=== PATIENT | male | born 1955 | race Caucasian/White ===

== ENCOUNTER 2020-05-19 07:25 | Outpatient (REF) | payer OTHER, MEDICARE, SELFPAY ==
[2020-05-19 07:52] LABS: MANUAL DIFF FLAG NO
[2020-05-19 07:56] LABS: Basophils Percent Auto 0.6 % (0-2); Eosinophils Absolute Auto 0.5 X10*3/uL (0.0-0.4); Hematocrit 44.8 % (42-52); Hemoglobin 14.3 g/dl (14.0-18.0); Imm Gran Abs Auto 0.01 X10*3/uL (0.00-0.03); Imm Gran Pct Auto 0.2 % (0.0-0.4); Lymphocytes Absolute Auto 1.9 X10*3/uL (1.2-4.9); Lymphocytes Percent Auto 29.7 % (20-40); Mean Corpuscular HGB Conc 31.9 g/dl (31.0-36.0); Mean Corpuscular Hemoglobin 28.4 pg (27.0-33.0); Mean Corpuscular Volume 88.9 fL (80-98); Mean Platelet Volume 9.6 fL (9.4-12.4); Monocytes Absolute Auto 0.7 X10*3/uL (0.1-1.2); Neutrophils Absolute Auto 3.3 X10*3/uL (2.0-8.3); Neutrophils Percent Auto 50.5 % (45-73); Platelet Count 236 X10*3/uL (160-400); Red Blood Count 5.04 X10*6/uL (4.60-5.80); Red Cell Distribution Width 14.1 % (11.0-16.0); White Blood Count 6.5 X10*3/uL (4.8-10.8)
[2020-05-19 08:23] LABS: Estimated Average Glucose 123 mg/dL; Hemoglobin A1c % 5.9 %
[2020-05-19 08:24] LABS: Alanine Aminotransferase 33 U/L (0-40); Albumin Level 4.3 g/dL (3.5-5.0); Alkaline Phosphatase 75 U/L (39-117); Anion Gap 11 (12-20); Aspartate Amino Transferase 22 U/L (5-37); Blood Urea Nitrogen 16 mg/dL (9-16); Calcium 9.6 mg/dL (8.4-10.2); Carbon Dioxide 28 mmol/L (22-29); Chloride 106 mmol/L (96-108); Cholesterol 188 mg/dL; Estimated Glomerular Filt Rate > 60; Glucose Fasting 119 mg/dL (60-99); HDL Cholesterol 49 mg/dL; LDL Cholesterol Calculated 115 mg/dl; Potassium 4.2 mmol/l (3.3-5.1); Sodium 141 mmol/L (135-145); Total Protein 7.4 g/dL (6.5-8.0); Triglycerides 123 mg/dL
[2020-05-19 08:44] LABS: Glucose Urine UA NEG (NEG); Leukocyte Esterase Urine NEG (NEG); Nitrite Urine NEG (NEG); Urine Blood TRACE (NEG); Urine Ketones NEG (NEG); Urine Protein NEG (NEG-TRACE)
[2020-05-19 08:45] LABS: Appearance Urine CLEAR; Color Urine YELLOW
[2020-05-19 08:45] LABS: Prostate Specific Antigen Scr 0.86 ng/mL (<0.05-4.0)
[2020-05-19 08:46] LABS: Reflex LDLD? No
[2020-05-19 09:07] LABS: Mucus Urine 1+ /LPF; WBC Urine 0 /HPF (0-4)
[2020-05-19 09:27] LABS: Creatinine Urine 126.64 mg/dL; Microalbum/Creatinine Ratio Ur 7.8 ug/mg cr
== END 2020-05-19 07:26 | disposition home or self-care (01) ==
LOC: HO.LAB 07:25
PROVIDERS: PCP Internal Medicine; Visit Provider Internal Medicine
DX: Z00.00 Encounter for general adult medical examination without abnormal findings (principal); Z12.5 Encounter for screening for malignant neoplasm of prostate; R73.03 Prediabetes; E78.00 Pure hypercholesterolemia, unspecified; N40.0 Benign prostatic hyperplasia without lower urinary tract symptoms
CPT/HCPCS: 36415; 80053; 80061; 81001; 82043; 83036; 84153; 85025

== ENCOUNTER 2020-11-17 11:06 | Outpatient (REF) | payer OTHER, MEDICARE, SELFPAY ==
[2020-11-17 11:44] LABS: Estimated Average Glucose 117 mg/dL; Hemoglobin A1c % 5.7 %
[2020-11-17 12:12] LABS: Alanine Aminotransferase 28 U/L (0-40); Albumin Level 4.2 g/dL (3.5-5.0); Alkaline Phosphatase 70 U/L (39-117); Aspartate Amino Transferase 24 U/L (5-37); Bilirubin Direct 0.3 mg/dL (0.0-0.5); Bilirubin Total 0.8 mg/dL (0.0-1.0); Cholesterol 159 mg/dL; Glucose Fasting 111 mg/dL (60-99); HDL Cholesterol 48 mg/dL; LDL Cholesterol Calculated 95 mg/dl; Total Protein 7.1 g/dL (6.5-8.0); Triglycerides 81 mg/dL
[2020-11-17 12:18] LABS: Reflex LDLD? No
== END 2020-11-17 11:07 | disposition home or self-care (01) ==
LOC: HO.LNP 11:06
PROVIDERS: PCP Internal Medicine; Visit Provider Internal Medicine
DX: E78.00 Pure hypercholesterolemia, unspecified (principal); R73.03 Prediabetes
CPT/HCPCS: 80061; 80076; 82947; 83036

== ENCOUNTER 2021-05-24 10:43 | Outpatient (REF) | payer OTHER, SELFPAY ==
[2021-05-24 10:47] LABS: MANUAL DIFF FLAG NO
[2021-05-24 11:08] LABS: Basophils Percent Auto 0.4 % (0-2); Eosinophils Absolute Auto 0.2 X10*3/uL (0.0-0.4); Eosinophils Percent Auto 2.9 % (0-4); Hematocrit 43.6 % (42-52); Hemoglobin 14.3 g/dl (14.0-18.0); Imm Gran Abs Auto 0.02 X10*3/uL (0.00-0.03); Imm Gran Pct Auto 0.3 % (0.0-0.4); Lymphocytes Absolute Auto 1.9 X10*3/uL (1.2-4.9); Lymphocytes Percent Auto 26.8 % (20-40); Mean Corpuscular HGB Conc 32.8 g/dl (31.0-36.0); Mean Corpuscular Volume 88.4 fL (80-98); Mean Platelet Volume 10.5 fL (9.4-12.4); Monocytes Absolute Auto 0.7 X10*3/uL (0.1-1.2); Neutrophils Absolute Auto 4.3 X10*3/uL (2.0-8.3); Neutrophils Percent Auto 59.6 % (45-73); Platelet Count 256 X10*3/uL (160-400); Red Blood Count 4.93 X10*6/uL (4.60-5.80); Red Cell Distribution Width 14.2 % (11.0-16.0); White Blood Count 7.2 X10*3/uL (4.8-10.8)
[2021-05-24 11:27] LABS: Appearance Urine CLEAR; Color Urine YELLOW; Glucose Urine UA NEG (NEG); Leukocyte Esterase Urine NEG (NEG); Nitrite Urine NEG (NEG); Urine Blood NEG (NEG); Urine Ketones NEG (NEG); Urine Protein NEG (NEG-TRACE)
[2021-05-24 11:30] LABS: Estimated Average Glucose 120 mg/dL; Hemoglobin A1c % 5.8 %
[2021-05-24 11:38] LABS: Alanine Aminotransferase 33 U/L (0-40); Albumin Level 4.3 g/dL (3.5-5.0); Alkaline Phosphatase 69 U/L (39-117); Anion Gap 12 (12-20); Aspartate Amino Transferase 26 U/L (5-37); Bilirubin Total 0.8 mg/dL (0.0-1.0); Blood Urea Nitrogen 15 mg/dL (9-16); Calcium 9.5 mg/dL (8.4-10.2); Carbon Dioxide 24 mmol/L (22-29); Chloride 108 mmol/L (96-108); Cholesterol 159 mg/dL; Estimated Glomerular Filt Rate > 60; Glucose Fasting 111 mg/dL (60-99); HDL Cholesterol 39 mg/dL; LDL Cholesterol Calculated 96 mg/dl; Potassium 4.2 mmol/L (3.3-5.1); Sodium 140 mmol/L (135-145); Total Protein 7.2 g/dL (6.5-8.0); Triglycerides 121 mg/dL
[2021-05-24 11:42] LABS: PSA,Total (Free>4and<10) 0.94 ng/mL (0.00-4.00)
[2021-05-24 11:58] LABS: Creatinine Urine 151.03 mg/dL; Microalbum/Creatinine Ratio Ur 9.2 ug/mg cr
[2021-05-24 12:33] LABS: Reflex LDLD? No
== END 2021-05-24 10:44 | disposition home or self-care (01) ==
LOC: HO.LNP 10:43
PROVIDERS: Visit Provider Internal Medicine
DX: Z12.5 Encounter for screening for malignant neoplasm of prostate (principal); R73.03 Prediabetes; E78.00 Pure hypercholesterolemia, unspecified; N40.0 Benign prostatic hyperplasia without lower urinary tract symptoms
CPT/HCPCS: 80053; 80061; 81003; 82043; 83036; 84153; 85025

== ENCOUNTER 2021-11-23 10:41 | Outpatient (REF) | payer MEDICARE, SELFPAY ==
[2021-11-23 10:58] LABS: Alanine Aminotransferase 54 U/L (0-40); Albumin Level 4.3 g/dL (3.5-5.0); Alkaline Phosphatase 73 U/L (39-117); Aspartate Amino Transferase 33 U/L (5-37); Bilirubin Direct 0.4 mg/dL (0.0-0.5); Cholesterol 160 mg/dL; Glucose Fasting 116 mg/dL (60-99); HDL Cholesterol 52 mg/dL; LDL Cholesterol Calculated 92 mg/dl; Total Protein 7.4 g/dL (6.5-8.0); Triglycerides 80 mg/dL
[2021-11-23 11:00] LABS: Estimated Average Glucose 114 mg/dL; Hemoglobin A1c % 5.6 %
[2021-11-23 12:32] LABS: Reflex LDLD? No
== END 2021-11-23 10:42 | disposition home or self-care (01) ==
LOC: HO.LNP 10:41
PROVIDERS: Visit Provider Internal Medicine
DX: R73.03 Prediabetes (principal); E78.00 Pure hypercholesterolemia, unspecified
CPT/HCPCS: 80061; 80076; 82947; 83036

== ENCOUNTER 2022-05-24 11:32 | Outpatient (REF) | payer MEDICARE, SELFPAY ==
[2022-05-24 11:37] LABS: MANUAL DIFF FLAG NO
[2022-05-24 12:06] LABS: Appearance Urine Clear; Basophils Absolute Auto 0.1 X10*3/uL (0.0-0.2); Basophils Percent Auto 0.8 % (0-2); Color Urine Yellow; Eosinophils Absolute Auto 0.4 X10*3/uL (0.0-0.4); Glucose Urine UA Negative (Negative); Hematocrit 44.3 % (42.0-52.0); Hemoglobin 14.3 g/dl (14.0-18.0); Imm Gran Abs Auto 0.02 X10*3/uL (0.00-0.03); Imm Gran Pct Auto 0.3 % (0.0-0.4); Leukocyte Esterase Urine Negative (Negative); Lymphocytes Absolute Auto 2.1 X10*3/uL (1.2-4.9); Lymphocytes Percent Auto 29.9 % (20-40); Mean Corpuscular HGB Conc 32.3 g/dl (31.0-36.0); Mean Corpuscular Hemoglobin 28.3 pg (27.0-33.0); Mean Corpuscular Volume 87.5 fL (80.0-98.0); Mean Platelet Volume 10.5 fL (9.4-12.4); Monocytes Absolute Auto 0.7 X10*3/uL (0.1-1.2); Monocytes Percent Auto 10.3 % (2-11); Neutrophils Absolute Auto 3.8 x10*3/uL (2.0-8.3); Neutrophils Percent Auto 52.7 % (45-73); Nitrite Urine Negative (Negative); Platelet Count 227 X10*3/uL (160-400); Red Blood Count 5.06 X10*6/uL (4.60-5.80); Red Cell Distribution Width 13.9 % (11.0-16.0); Urine Blood Negative (Negative); Urine Ketones Negative (Negative); Urine Protein Negative (Neg-Trace); White Blood Count 7.2 X10*3/uL (4.8-10.8)
[2022-05-24 12:11] LABS: Bacteria Urine None Seen (None Seen); Hyaline Casts Urine 0-2 /LPF (0-2); Squamous Epithelial Cell Urine 0-2 /HPF (0-2); WBC Urine 0-5 /HPF (0-5)
[2022-05-24 12:32] LABS: Estimated Average Glucose 123 mg/dL; Hemoglobin A1c % 5.9 %
[2022-05-24 12:35] LABS: Alanine Aminotransferase 26 U/L (0-40); Albumin Level 4.3 g/dL (3.5-5.0); Alkaline Phosphatase 68 U/L (39-117); Anion Gap 14 (12-20); Aspartate Amino Transferase 24 U/L (5-37); Bilirubin Total 0.9 mg/dL (0.0-1.0); Blood Urea Nitrogen 16 mg/dL (9-16); Calcium 9.4 mg/dL (8.4-10.2); Carbon Dioxide 25 mmol/L (22-29); Chloride 107 mmol/L (96-108); Cholesterol 170 mg/dL; Estimated Glomerular Filt Rate > 60; Glucose Fasting 112 mg/dL (60-99); HDL Cholesterol 49 mg/dL; LDL Cholesterol Calculated 104 mg/dl; Potassium 3.9 mmol/L (3.3-5.1); Sodium 142 mmol/L (135-145); Total Protein 7.4 g/dL (6.5-8.0); Triglycerides 88 mg/dL
[2022-05-24 12:42] LABS: Creatinine Urine 169.49 mg/dL; Microalbum/Creatinine Ratio Ur 9.4 ug/mg cr
[2022-05-24 13:00] LABS: PSA,Total (Free>4and<10) 0.76 ng/mL (0.00-4.00)
== END 2022-05-24 11:33 | disposition home or self-care (01) ==
LOC: HO.LNP 11:32
PROVIDERS: Visit Provider Internal Medicine
DX: Z12.5 Encounter for screening for malignant neoplasm of prostate (principal); R73.03 Prediabetes; E78.00 Pure hypercholesterolemia, unspecified; N40.0 Benign prostatic hyperplasia without lower urinary tract symptoms
CPT/HCPCS: 80053; 80061; 81001; 82043; 83036; 84153; 85025

== ENCOUNTER 2022-06-28 11:21 | Outpatient (REF) | payer MEDICARE, SELFPAY ==
[2022-06-28 11:44] LABS: Appearance Urine Clear; Color Urine Yellow; Glucose Urine UA Negative (Negative); Leukocyte Esterase Urine Negative (Negative); Nitrite Urine Negative (Negative); Urine Blood Negative (Negative); Urine Ketones Negative (Negative); Urine Protein Negative (Neg-Trace)
[2022-06-28 11:47] LABS: Bacteria Urine None Seen (None Seen); Hyaline Casts Urine 0-2 /LPF (0-2); RBC Urine 0-2 /HPF (0-2); Squamous Epithelial Cell Urine 0-2 /HPF (0-2); WBC Urine 0-5 /HPF (0-5)
== END 2022-06-28 11:22 | disposition home or self-care (01) ==
LOC: HO.LNP 11:21
PROVIDERS: Visit Provider Internal Medicine
DX: R31.9 Hematuria, unspecified (principal)
CPT/HCPCS: 81001

== ENCOUNTER 2022-11-25 11:02 | Outpatient (REF) | payer MEDICARE, SELFPAY ==
[2022-11-25 12:10] LABS: Alanine Aminotransferase 31 U/L (0-40); Albumin Level 4.3 g/dL (3.5-5.0); Alkaline Phosphatase 69 U/L (39-117); Aspartate Amino Transferase 23 U/L (5-37); Bilirubin Direct 0.2 mg/dL (0.0-0.5); Bilirubin Total 0.9 mg/dL (0.0-1.0); Cholesterol 160 mg/dL; Glucose Fasting 111 mg/dL (60-99); HDL Cholesterol 42 mg/dL; LDL Cholesterol Calculated 94 mg/dl; Total Protein 7.3 g/dL (6.5-8.0); Triglycerides 121 mg/dL
[2022-11-25 12:19] LABS: Estimated Average Glucose 120 mg/dL; Hemoglobin A1c % 5.8 %
== END 2022-11-25 11:03 | disposition home or self-care (01) ==
LOC: HO.LNP 11:02
PROVIDERS: Visit Provider Internal Medicine
DX: R73.09 Other abnormal glucose (principal); E78.00 Pure hypercholesterolemia, unspecified
CPT/HCPCS: 80061; 80076; 82947; 83036

== ENCOUNTER 2023-06-26 10:43 | Outpatient (REF) | payer MEDICARE, SELFPAY ==
[2023-06-26 10:47] LABS: MANUAL DIFF FLAG NO
[2023-06-26 11:00] LABS: Basophils Percent Auto 0.6 % (0-2); Eosinophils Absolute Auto 0.4 X10*3/uL (0.0-0.4); Eosinophils Percent Auto 6.5 % (0-4); Hematocrit 44.7 % (42.0-52.0); Hemoglobin 14.8 g/dl (14.0-18.0); Imm Gran Abs Auto 0.02 X10*3/uL (0.00-0.03); Imm Gran Pct Auto 0.3 % (0.0-0.4); Lymphocytes Absolute Auto 2.2 X10*3/uL (1.2-4.9); Lymphocytes Percent Auto 33.2 % (20-40); Mean Corpuscular HGB Conc 33.1 g/dl (31.0-36.0); Mean Corpuscular Hemoglobin 28.9 pg (27.0-33.0); Mean Corpuscular Volume 87.3 fL (80.0-98.0); Mean Platelet Volume 10.2 fL (9.4-12.4); Monocytes Absolute Auto 0.7 X10*3/uL (0.1-1.2); Monocytes Percent Auto 10.6 % (2-11); Neutrophils Absolute Auto 3.2 x10*3/uL (2.0-8.3); Neutrophils Percent Auto 48.8 % (45-73); Platelet Count 251 X10*3/uL (160-400); Red Blood Count 5.12 X10*6/uL (4.60-5.80); White Blood Count 6.6 X10*3/uL (4.8-10.8)
[2023-06-26 11:10] LABS: Appearance Urine Clear; Color Urine Yellow; Glucose Urine UA Negative (Negative); Leukocyte Esterase Urine Negative (Negative); Nitrite Urine Negative (Negative); PH 6.5 (5.0-9.0); Specific Gravity - Urine 1.015 (1.005-1.025); Urine Blood Negative (Negative); Urine Ketones Negative (Negative); Urine Protein Negative (Neg-Trace)
[2023-06-26 11:15] LABS: Bacteria Urine None Seen (None Seen); Estimated Average Glucose 123 mg/dL; Hemoglobin A1c % 5.9 % (<6.0); Hyaline Casts Urine 0-2 /LPF (0-2); RBC Urine 0-2 /HPF (0-2); Squamous Epithelial Cell Urine 0-2 /HPF (0-2); WBC Urine 0-5 /HPF (0-5)
[2023-06-26 11:45] LABS: Alanine Aminotransferase 25 U/L (0-40); Albumin Level 4.3 g/dL (3.5-5.0); Alkaline Phosphatase 67 U/L (39-117); Anion Gap 12 (12-20); Aspartate Amino Transferase 26 U/L (5-37); Bilirubin Total 0.7 mg/dL (0.0-1.0); Blood Urea Nitrogen 10 mg/dL (9-16); Calcium 9.8 mg/dL (8.4-10.2); Carbon Dioxide 27 mmol/L (22-29); Chloride 107 mmol/L (96-108); Cholesterol 153 mg/dL (<200); Estimated Glomerular Filt Rate > 60; Glucose Random 109 mg/dL (60-115); HDL Cholesterol 47 mg/dL (>40); LDL Cholesterol Calculated 93 mg/dL (<100); Sodium 142 mmol/L (135-145); Total Protein 7.6 g/dL (6.5-8.0); Triglycerides 67 mg/dL (<150)
[2023-06-26 11:58] LABS: Microalbum/Creatinine Ratio Ur 14.8 ug/mg cr (<30)
== END 2023-06-26 10:44 | disposition home or self-care (01) ==
LOC: HO.LNP 10:43
PROVIDERS: Visit Provider Internal Medicine
DX: R73.09 Other abnormal glucose (principal); E78.00 Pure hypercholesterolemia, unspecified; N40.0 Benign prostatic hyperplasia without lower urinary tract symptoms; Z12.5 Encounter for screening for malignant neoplasm of prostate
CPT/HCPCS: 80053; 80061; 81001; 82043; 82570; 83036; 84153; 85025

== ENCOUNTER 2023-12-28 11:12 | Outpatient (REF) | payer MEDICARE, SELFPAY ==
[2023-12-28 11:38] LABS: Estimated Average Glucose 126 mg/dL
[2023-12-28 12:09] LABS: Alanine Aminotransferase 30 U/L (0-40); Albumin Level 4.3 g/dL (3.5-5.0); Alkaline Phosphatase 75 U/L (39-117); Aspartate Amino Transferase 28 U/L (5-37); Bilirubin Direct 0.3 mg/dL (0.0-0.5); Bilirubin Total 1.1 mg/dL (0.0-1.0); Cholesterol 171 mg/dL (<200); Glucose Fasting 107 mg/dL (60-99); HDL Cholesterol 53 mg/dL (>40); LDL Cholesterol Calculated 101 mg/dL (<100); Total Protein 7.6 g/dL (6.5-8.0); Triglycerides 89 mg/dL (<150)
[2023-12-28 12:32] LABS: Reflex LDLD? No
== END 2023-12-28 11:13 | disposition home or self-care (01) ==
LOC: HO.LNP 11:12
PROVIDERS: Visit Provider Internal Medicine
DX: R73.09 Other abnormal glucose (principal); E78.00 Pure hypercholesterolemia, unspecified
CPT/HCPCS: 80061; 80076; 82947; 83036

== ENCOUNTER 2024-06-21 10:39 | Outpatient (REF) | payer MEDICARE, SELFPAY ==
[2024-06-21 10:43] LABS: MANUAL DIFF FLAG NO
[2024-06-21 11:28] LABS: Basophils Absolute Auto 0.1 X10*3/uL (0.0-0.2); Basophils Percent Auto 0.6 % (0-2); Eosinophils Absolute Auto 0.5 X10*3/uL (0.0-0.4); Eosinophils Percent Auto 6.6 % (0-4); Hematocrit 44.7 % (42.0-52.0); Hemoglobin 14.8 g/dl (14.0-18.0); Imm Gran Abs Auto 0.03 X10*3/uL (0.00-0.03); Imm Gran Pct Auto 0.4 % (0.0-0.4); Lymphocytes Absolute Auto 1.9 X10*3/uL (1.2-4.9); Lymphocytes Percent Auto 23.3 % (20-40); Mean Corpuscular HGB Conc 33.1 g/dl (31.0-36.0); Mean Corpuscular Hemoglobin 29.4 pg (27.0-33.0); Mean Corpuscular Volume 88.9 fL (80.0-98.0); Mean Platelet Volume 10.7 fL (9.4-12.4); Monocytes Absolute Auto 0.8 X10*3/uL (0.1-1.2); Monocytes Percent Auto 10.4 % (2-11); Neutrophils Absolute Auto 4.7 x10*3/uL (2.0-8.3); Neutrophils Percent Auto 58.7 % (45-73); Platelet Count 258 X10*3/uL (160-400); Red Blood Count 5.03 X10*6/uL (4.60-5.80); Red Cell Distribution Width 14.2 % (11.0-16.0); White Blood Count 8.1 X10*3/uL (4.8-10.8)
[2024-06-21 11:30] LABS: Appearance Urine Clear; Color Urine Yellow; Glucose Urine UA Negative (Negative); Leukocyte Esterase Urine Negative (Negative); Nitrite Urine Negative (Negative); PH 6.5 (5.0-9.0); Urine Blood Negative (Negative); Urine Ketones Negative (Negative); Urine Protein Negative (Neg-Trace)
[2024-06-21 11:49] LABS: Bacteria Urine None Seen (None Seen); Hyaline Casts Urine 0-2 /LPF (0-2); RBC Urine 0-2 /HPF (0-2); Squamous Epithelial Cell Urine 0-2 /HPF (0-2); WBC Urine 0-5 /HPF (0-5)
[2024-06-21 12:11] LABS: Alanine Aminotransferase 33 U/L (0-40); Albumin Level 4.2 g/dL (3.5-5.0); Alkaline Phosphatase 77 U/L (39-117); Anion Gap 13 (12-20); Aspartate Amino Transferase 33 U/L (5-37); Bilirubin Total 0.7 mg/dL (0.0-1.0); Blood Urea Nitrogen 13 mg/dL (9-16); Calcium 9.7 mg/dL (8.4-10.2); Carbon Dioxide 24 mmol/L (22-29); Chloride 106 mmol/L (96-108); Cholesterol 149 mg/dL (<200); Estimated Glomerular Filt Rate > 60; Glucose Fasting 122 mg/dL (60-99); HDL Cholesterol 44 mg/dL (>40); LDL Cholesterol Calculated 88 mg/dL (<100); Potassium 4.3 mmol/L (3.3-5.1); Sodium 139 mmol/L (135-145); Total Protein 7.3 g/dL (6.5-8.0); Triglycerides 89 mg/dL (<150)
[2024-06-21 12:12] LABS: PSA,Total (Free>4and<10) 1.05 ng/mL (0.00-4.00)
== END 2024-06-21 10:40 | disposition home or self-care (01) ==
LOC: HO.LNP 10:39
PROVIDERS: Visit Provider Internal Medicine
DX: R73.09 Other abnormal glucose (principal); E78.00 Pure hypercholesterolemia, unspecified; Z12.5 Encounter for screening for malignant neoplasm of prostate
CPT/HCPCS: 80053; 80061; 81001; 84153; 85025

== ENCOUNTER 2024-11-06 07:22 | Day surgery (SDC) | payer MEDICARE, SELFPAY ==
--- OUTSIDE RECORDS SUMMARY | 2024-10-09 16:34 | XMS_ITS | Clinical Summary ---
Author Organization [address] [facility] Address [address] [place] [address] Phone Care Team Providers Care Utility Tech Name Role Phone Daniel Shoemaker MD Primary Care Provider [phone] Encounters Date Type Department Care Team Description 09/19/2024 Lab Requisition [facility] [address] [place] [phone] Herson Rodriguez PA Gross hematuria 08/12/2024 Lab Requisition [facility] [address] [place] [address] Herson Rodriguez PA Benign essential microscopic hematuria from Last 3 Months Social History Tobacco Use Types Packs/Day Years Used Date Smoking Tobacco: Never Assessed Sex and Gender Information Value Date Recorded Sex Assigned at Not on file Legal Sex Male 8:47 PM EST Gender Identity Not on file Sexual Orientation Not on file Plan of Treatment Health Maintenance Due Date Last Done Comments DTaP,Tdap,and Td Vaccines (1 - Tdap) 1973 Pneumococcal Vaccine: 50+ Ye ars (1 of 1 - PCV) 2004 Zoster Vaccines (1 of 2) 2004 Abdominal Aortic Aneurysm (A AA) Screen 09/01/2023 Cholesterol Screening (Lipid Panel) 09/01/2023 Colorectal Cancer Screening: Colonoscopy 09/01/2023 Depression Screening 09/01/2023 Falls Risk Assessment 09/01/2023 Hepatitis C Screening 09/01/2023 Medicare Annual Wellness Visit 09/01/2023 Social Influencers of Health Screening 09/01/2023 COVID-19 Vaccine ( - 2023-2 5 season) 2024 Influenza Vaccine (#1) 2024 RSV Immunization Patients 60 + Years Old (1 - 1-dose 75+ series) 2029 HIB Vaccines Aged Out No longer eligi ble based on patient's age to complete this topic HPV Vaccines Aged Out No longer eligi ble based on patient's age to complete this topic Hepatitis A Vaccines Aged Out No long er eligible based on patient's age to complete this topic Hepatitis B Vaccines Aged Out No long er eligible based on patient's age to complete this topic IPV Vaccines Aged Out No longer eligi ble based on patient's age to complete this topic MMR Vaccines Aged Out No longer eligi ble based on patient's age to complete this topic Meningococcal ACWY Vaccine Aged Out N o longer eligible based on patient's age to complete this topic Meningococcal B Vacine Aged Out No lo nger eligible based on patient's age to complete this topic RSV Immunization Patients Un lien 20 months Aged Out No longer eligible b ased on patient's age to complete this topic Varicella Vaccines Aged Out No longer eligible based on patient's age to complete this topic Procedures Procedure Name Priority Date/Time Associated Diagnosis Comments AP OUTSIDE CONSULT Routine 09/13/2024 12 :00 AM EST Gross hematuria AP OUTSIDE CONSULT Routine 07/26/2024 12 :00 AM EST Benign essential microscopic hematuria from Last 3 Months Results * Anatomic pathology outside consult (09/13/2024 12:00 AM EST) Only the most recent of2 resultswithin the time period is included. Final Diagnosis A. Urine, Voided, ([id number]): Negative for high grade urothelial carcinoma. Results of UroVysion fluorescence in situ hybridization (FISH) testing: CEP3: Normal CEP7: Normal CEP17: Normal LSI 9p21: Normal Interpretation: Normal profile Controls stained appropriately. Note: The results are intended as a screening device and should be interpreted in association with other clinical and pathological findings. 09/25/2024 9:42 AM [facility] Clinical Information Gross hematuria R31.0 Urine Cytology/FISH (now) 09/25/2024 9:42 AM EST [facility] Gross Description A. Urine, Voided, ([id number]): Received one ThinPrep slide for cytology and one ThinPrep slide for UroVysion FISH Second cytology slide processed due to stain issue with first slide. 09/25/2024 9:42 AM EST [facility] Disclaimer Unless otherwise specified, all tissue is 10% NB formalin fixed and paraffin embedded. Technical pathology services provided by [facility] [address] [place] [address] (CLIA #[id number]/Janeen Pederson MD, Host/Hostess Ground) 09/25/2024 9:42 AM EST [facility] Tissue Urine specimen from urethra / Unknown 09/13/2024 09/19/2024 3:10 PM EST [facility] PATHOLOGY ORDERAB LES Final Result [facility] [address] [place] [address], [place] [phone] from Last 3 Months Insurance MEDICARE [facility] Care Teams Utility Tech Relationship Specialty Start Date End Date Daniel Shoemaker MD PCP - General 03/27/23
--- OUTSIDE RECORDS SUMMARY | 2024-10-09 16:34 | XMS_ITS | Encounter Summary ---
Author Organization [facility] Address [address] [place] [address] Care Team Providers Care Staff Midwife/Apprenticeship Director Name Role Phone Daniel Shoemaker MD Primary Care Provider Encounter Details Date Type Department Care Team (Late st Contact Info) Description 09/19/2024 Lab Requisition [facility] [address] [facility] [place] [address] Herson Rodriguez PA [address] [place] [address] Gross hematuria Social History Tobacco Use Types Packs/Day Years Used Date Smoking Tobacco: Never Assessed Sex and Gender Information Value Date Recorded Sex Assigned at Not on file Legal Sex Male 8:47 PM EST Gender Identity Not on file Sexual Orientation Not on file documented as of this encounter Plan of Treatment Not on file documented as of this encounter Procedures Procedure Name Priority Date/Time Associated Diagnosis Comments AP OUTSIDE CONSULT Routine 09/13/2024 12 :00 AM EST Gross hematuria documented in this encounter Results * Anatomic pathology outside consult (09/13/2024 12:00 AM EST) Final Diagnosis A. Urine, Voided, ([id number]): Negative for high grade urothelial carcinoma. Results of UroVysion fluorescence in situ hybridization (FISH) testing: CEP3: Normal CEP7: Normal CEP17: Normal LSI 9p21: Normal Interpretation: Normal profile Controls stained appropriately. Note: The results are intended as a screening device and should be interpreted in association with other clinical and pathological findings. 09/25/2024 9:42 AM EST [facility] Clinical Information Gross hematuria R31.0 Urine Cytology/FISH (now) 09/25/2024 9:42 AM [facility] Gross Description A. Urine, Voided, ([id number]): Received one ThinPrep slide for cytology and one ThinPrep slide for UroVysion FISH Second cytology slide processed due to stain issue with first slide. 09/25/2024 9:42 AM [facility] Disclaimer Unless otherwise specified, all tissue is 10% NB formalin fixed and paraffin embedded. Technical pathology services provided by [facility] at [address], [place] [address] (CLIA #[id number]/Janeen Pederson MD, Psychology Lecturer) 09/25/2024 9:42 AM [facility] Tissue Urine specimen from urethra / Unknown 09/13/2024 09/19/2024 3:10 PM EST us [facility] PATH[facility]Y ORDERAB LES Final Result [facility] [address] [place] [address], documented in this encounter Visit Diagnoses Diagnosis Gross hematuria documented in this encounter Care Teams Staff Midwife/Apprenticeship Director Relationship Specialty Start Date End Date Daniel Shoemaker MD PCP - General 03/27/23 documented as of this encounter
--- OUTSIDE RECORDS SUMMARY | 2024-10-09 16:34 | XMS_ITS | Continuity of Care Document ---
Author Organization [facility] Address [address] [place] [phone] Care Team Providers Care Field Clerk Name Role Phone Daniel Shoemaker MD Primary Care Physician [phone] Encounter 09/27/24 - 09/28/[address] [address]- Attending Physician: Not on Staff, Attending MD Referring Physician: Not on Staff, Referring MD Encounter Type: SMRI Allergies, Adverse Reactions, Alerts No Known Allergies Problem List Condition Confirmation Course Effective Dates Status Health St atus Informant Obese class I Confirmed Active Results Radiology Reports * Exam Date Time Procedure Performing Provider Status 09/27/24 1:52 PM MRI Abdomen W+W/O Contrast Auth (Verified) Notes: (MRI Abdomen W+W/O Contrast) Reason For Exam: Gross hematuria;Gross hematuria RESULT: MRI Abdomen W+W/O Contrast [facility] VISIT NUMBER :[id number] Patient Name: Alonso Casillas Date of : 1955 Date of Exam: 09-27-2024 Referring Physician: H[facility] [address] [place] [address] Exam: MR Abdomen (C-/C+) CPT 14218 Room Description: [facility] Espr 1.5 HISTORY: 69 years old Male with 1.2 cm indeterminate exophytic lesion in the upper pole of the LEFT kidney on unenhanced CT with attenuation of 32-40 Hounsfield units. Hemorrhagic or proteinaceous cyst in the lower pole of the LEFT kidney also noted on the exam with attenuation of more than 70,000 units. TECHNIQUE: Renal mass protocol utilized. 25 cc of Dotarem contrast given IV. COMPARISONS: Unenhanced CT abdomen and pelvis dated 09/08/2024. FINDINGS: Liver: Normal in size and contour. No evidence of hepatic steatosis. The portal veins are normal. Gallbladder: Large 3.5 cm gallstone. No wall thickening or adjacent fat stranding. Bile ducts: No intra-hepatic or extra-hepatic biliary ductal dilatation. Spleen: Normal in size and signal. Pancreas: Normal in size, signal and enhancement. No focal lesions. No evidence of pancreas divisum or other congenital anomaly. No peripancreatic edema or fluid collections. Adrenal Glands: Unremarkable. Kidneys: Single renal arteries bilaterally. Renal veins are patent. Normal in size and location. Exophytic 1.2 cm lesion arising anteriorly from the upper pole of the LEFT kidney exhibits increased T1 and T2 signal without enhancement, with corresponding T2 hypointensity and no chemical shift artifact or evidence of macroscopic fat, consistent with a hemorrhagic or proteinaceous cyst. Much smaller hemorrhagic or proteinaceous cyst is noted in the interpolar region of the LEFT kidney anterolaterally measuring 0.7 cm. No other focal lesions.. No evidence of hydronephrosis or perinephric collections. Stomach and visualized bowel: Posterior diverticulum of the second portion of the duodenum again noted measuring approximately 2 cm. No abnormal dilatation or definite wall thickening. Mesentery: Normal. Lymph nodes: No enlarged lymph nodes. Vascular structures: Abdominal aorta and Inferior vena cava are normal in caliber and contour with expected vascular flow-voids. Free fluid: No evidence of ascites. Abdominal wall: Evidence of mild to moderate obesity. No mass or hernia. Osseous structures: Mild to moderate degenerative changes in the visualized lumbar spine. Lung bases: No pleural or pericardial effusions. IMPRESSION: 1. 2 hemorrhagic or proteinaceous cysts in the LEFT kidney confirmed. 2. Cholelithiasis without evidence of acute cholecystitis or biliary ductal dilatation. 3. Small duodenal diverticulum. Thank you for allowing me to participate in the care of this patient. Electronically Signed By: Tj Ivan MD Dictated By: Not on Staff , MORGAN MAYES Dictated Date/Time: 09/27/24 2:40 pm Reviewed By: Not on Staff , MORGAN MAYES Signed By: Not on Staff , MORGAN MAYES Signed Date/Time: 09/27/24 2:40 pm Transcribed By: NOAH Transcribed Date/Time: 09/27/24 2:40 pm Social History Social History Type Response Smoking Status Former smoker entered on: 01/07/16 Sex Sex Representation Male (finding) Patient Care team information Care Team Personnel Name: Daniel Shoemaker MD Position: Reference Physician Member Role: PCP Address: [address] [place] [address] Daniel Shoemaker MD [place], [place] [address] Telecom: [phone] Insurance Providers Guarantor name: NA Health Plan Information #: 1 Payer: MEDICARE PART B OUTPT Member Number: NA Policy Number: NA Group Number: NA Health Plan Information #: 2 Payer: MEDEX Member Number: NA Policy Number: NA Group Number: NA
--- OUTSIDE RECORDS SUMMARY | 2024-10-09 16:34 | XMS_ITS ---
Author Organization Daniel Shoemaker MD Address [address] [place] [phone] Care Team Providers Care Loss Prevention/Safety District Manager Name Role Phone Daniel Shoemaker Primary Care Provider Allergies Allergen (clinical drug ingredient) Drug/Non Drug Allergy documented on EMR Reaction Allergy Type Onset Date Status Simvastatin myalgia Drug Allergy Activ e REASON FOR VISIT follow up appt from [facility] ER visit on 09-08-2024, has an apt [...] Problem Status W/U Status Risk Notes Problem 886908780 Asymptomatic cholelithiasis (K80.20) Active confirmed Vital Signs Blood pressure systolic 172 mm Hg 09/16/19 25 Blood pressure diastolic 84 mm Hg 025 Height 63.25 in 09/16/2024 Weight 256 lbs 09/16/2024 BMI 44.99 kg/m2 09/16/2024 Encounters Encounter Location Date Provider Diagnosis Daniel Shoemaker MD [address] [place] [phone] 09/16/2024 Daniel Shoemaker Gross hematuria R31. 0 [...] pain there Next Appt Details Provider Name:Daniel Licona ier, 12/16/2024 07:00:00 AM, [address] [place] [address], [address] [place] [address], [phone], Provider Name:Daniel staleyr, 12/24/2024 09:00:00 AM, [address] [place] [address], [address], [phone], Provider Name:Daniel Licona ier, 06/24/2025 07:30:00 AM, [address] [place] [address], [address], [phone], Provider Name:Daniel Licona ier, 07/01/2025 08:30:00 AM, [address] [place] [address], [address], [phone], Progress Notes * Alonso CASILLASDOB:1955 (69 yo M)Acc No.[id number]:09/16/2024 Patient:?lAonso CASILLAS Provider:?Daniel Shoemaker MD :1955???Age:69 Y???Sex:Male Hipolito e:09/16/2024 Address: [address], [place], [phone] Subjective: * Chief Complaints: * ???follow up appt from [facility] E R visit on 09-08-2024has an apt with Urology on MondayAccompanied by * HPI: ???Symptom(s):?patient is a 69 yo male here for ER follow up visit, had blood in urine and passed clots. tomorrow is? going to get scoped. and is getting mri. * ROS:?General/Constitutional:?Denies?Chills.?Denies?Fatigue.?Denies?Fever.?Denies?Headache.?ENT:?Patient denies?decreased sense of smell, any loss of taste, sore throat.?Denies?Sore throat.?Respiratory:?Denies?Cough.?Denies?Shortness of breath at rest.?Denies?Shortness of breath with exertion.?Gastrointestinal:?Denies?Diarrhea.?Denies?Nausea.?Genitourinary:?Denies?Abdominal pain/swelling.?Denies?Blood in urine.?Denies?Difficulty urinating.?Admits?Frequent urination.?Admits?Pain in lower back.?Musculoskeletal:?Patient denies?muscle aches.?Peripheral Vascular:?Patient denies?red and blue toes.? * Medical History:? * Surgical History:? * Hospitalization/Major Diagno stic Procedure:? * Medications:?TakingVitamin D 50 MCG (2000 UT) Capsule 1 capsule Orally Once a day Tamsulosin HCl 0.4 MG Capsule TAKE 1 CAPSULE BY MOUTH EVERY DAY Rosuvastatin Calcium 10 MG Tablet Take 1 tablet by mouth once daily Medication List reviewed and reconciled with the patientTaking Vitamin D 50 MCG (2000 UT) Capsule 1 capsule Orally Once a day Taking Tamsulosin HCl 0.4 MG Capsule TAKE 1 CAPSULE BY MOUTH EVERY DAY Taking Rosuvastatin Calcium 10 MG Tablet Take 1 tablet by mouth once daily Medication List reviewed and reconciled with the patient * Allergies:?Simvastatin: jazmyn garcia[Allergies Verified] Objective: * Vitals:?Ht: 63.25, Wt: 256, BMI:44.99, BP:172/84, Repeat BP:140/82, Wt-k.12. * Examination: ???General Examination: ?GENERAL APPEARANCE:?alert, well hydrated, in no distress.?HEAD:?normocephalic.?SKIN:?good turgor.?HEART:?regular rate and rhythm, no murmurs, rubs, gallops.?LUNGS:?no wheezes, rales, rhonchi, good air movement, clear to auscultation bilaterally.?ABDOMEN:?soft, nontender, nondistended, no organomegaly.?BACK:?no costovertebral angle tenderness.? Assessment: * Assessment: 1.?Gross hematuria - R31.0 ( Primary)???2.?Kidney lesion - N28.9???3.?Asymptomatic cholelithiasis - K80.20??? Plan: * Treatment: 2.?Kidney lesion? Notes: getting mri ?? 3.?Asymptomatic cholelithias is? Notes: warned patient of the presence in case he has pain there ?? * Procedure Codes:? * * Sign off status: Completed true * Provider:?Daniel Shoemaker MD Date:?0 09/16/2024 Generated for Inna saldaña/Garfield/eTransmitting on:?10/09/2024 04:34 PM EST History and Physical Notes * [...]
--- OUTSIDE RECORDS SUMMARY | 2024-10-09 16:35 | XMS_ITS | Encounter Summary ---
Author Organization [facility] Address [address] [place] [address] Care Team Providers Care Food Porter Name Role Phone Daniel Shoemaker MD Primary Care Provider Encounter Details Date Type Department Care Team (Late st Contact Info) Description 08/12/2024 Lab Requisition [facility] - Main Lab [address] [facility] [place] [address] Herson Rodriguez PA [address] [place] [address] Benign essential microscopic hematuria Social History Tobacco Use Types Packs/Day [...] Associated Diagnosis Comments AP OUTSIDE CONSULT Routine 07/26/2024 12 :00 AM EST Benign essential microscopic hematuria documented in this encounter Results * Anatomic pathology outside consult (07/26/2024 12:00 AM EST) Final Diagnosis Urine, Voided ([id number]): Negative for high grade urothelial carcinoma. Acute inflammation present. 08/13/2024 10:01 AM EST [facility] Clinical Information Benign essential microscopic hematuria R31.1 [id number] Urine cytology with reflex UroVysion (AUC/SHGUC) 08/13/2024 10:01 AM EST [facility] Gross Description A. Urine, Voided, : [id number] Received is one ThinPrep slide for cytology. 08/13/2024 10:01 AM [facility] Disclaimer Unless otherwise specified, all tissue is 10% NB formalin fixed and paraffin embedded. Technical pathology services provided by [facility] [address] [facility] [address], [place] [address] (CLIA #[id number]/Rizwan Pederson MD, Behavior Therapist) 08/13/2024 10:01 AM [facility] Tissue Urine specimen from urethra / Unknown 07/26/2024 08/12/2024 8:25 AM EST us [facility] ORDERAB LES Final Result [facility] [address] [place] [address], documented in this encounter Visit Diagnoses Diagnosis Benign essential microscopic hematuria documented in this encounter Care Teams Food Porter Relationship Specialty Start Date End Date Daniel Shoemaker MD PCP - General 03/27/23 documented as of this encounter
--- OUTSIDE RECORDS SUMMARY | 2024-10-09 16:35 | XMS_ITS ---
Author Organization Daniel Shoemaker MD Address [address] [place] [phone] Care Team Providers Care Diesel Dinkey Engineer Name Role Phone Daniel Shoemaker Primary Care Provider REASON FOR VISIT RF Rosuvastatin Medications Medication SIG (Take, Route, Frequency, Duration) Notes Start Date End Date Status Rosuvastatin Calcium 10 MG Take 1 tablet by mouth once daily Orally Once a day for 90 days Active Encounters Encounter Location Date Provider Diagnosis Daniel Shoemaker MD [address] [place] [phone] 09/17/2024 Daniel Shoemaker Pure hypercholestero lemia E78.00 [...] days Next Appt Details Provider Name:Daniel ascencio, 12/16/2024 07:00:00 AM, [address] [place] [address], [address], [phone], Provider Name:Daniel ascencio, 12/24/2024 09:00:00 AM, [address] [place] [address], [address], [phone], Provider Name:Daniel ascencio, 06/24/2025 07:30:00 AM, [address] [place] [address], [phone], Provider Name:Daniel Licona silva, 07/01/2025 08:30:00 AM, [address], [address], [place], [place], [phone], Progress Notes * Alonso CASILLASDOB:1955 (69 yo M)Acc No.[id number]:09/17/2024 Patient:?Alonso CASILLAS :1955???Age:69 Y???Sex:Male Address: [address], [place] [address] * Refills? Refill Rosuvastatin Calcium Tablet, 10 MG, Orally, 90, Take 1 tablet by mouth once daily, Once a day, 90 days, Refills=3 * true * Date:? Generated for Inna saldaña/Garfield/Hetalsmitting on:?10/09/2024 04:35 PM EST
--- OUTSIDE RECORDS SUMMARY | 2024-10-09 16:35 | XMS_ITS | Patient Health Record ---
Author Organization [facility] Address [address] [place] [address] Care Team Providers Care Concessionist Name Role Phone Daniel Shoemaker MD Primary Care Provider Zachery Seo Unavailable [phone] Allergies No Known Allergies Reason For Referral No Information Medications Medication SIG (Take, Route, Frequency, Duration) Notes Start Date End Date Status Tamsulosin HCl 0.4 MG 1 capsule Orally O nce a day for 30 day(s) Active Azithromycin Hydrogencitrate Not-Taking Tobramycin-dexAMETHasone 0.3-0.1 % 4 drops into affected ear Ophthalmic Three times a day for 7 day(s) Active Rosuvastatin Calcium 10 MG 1 tablet Oral ly Once a day for 30 day(s) Active PreserVision AREDS 2 - as directed Orall y once a day Active Vitamin C 500 MG 1 tablet Orally Once a day Active Centrum - as directed Orally once a day Active Aspir-81 81 MG 1 tablet Orally Once a day Active Co Q10 30 MG 1 capsule with a marcello l Orally Once a day Active Immunizations Vaccine Route Administration Date Status Comme nts Influenza Unknown 05/23/2018 Administered Problems Problem Type SNOMED Code ICD Code Onset Dates Problem Status W/U Status Risk Notes Problem Colon cancer screening (521640481) Colon cancer screening (Z12.11) Active confirmed Problem 748707286 Encounter for screening for malignant neoplasm of colon (Z12.11) Active confirmed Problem History of polyp of colon (situation) (619006688) Personal history of colonic polyps (Z86.010) Active confirmed Problem Long-term current use of antiplatelet drug (738161681602438) FPC (current) use of aspirin (Z79.82) Active confirmed Problem 839847802912590 Preprocedural examination (Z01.818) Active confirmed Problem 072266686 Hx of adenomatous colonic polyps (Z86.010) Active confirmed Vital Signs Blood pressure diastolic 00 mm Hg 07/12/2024 Height 72.5 in 07/12/2024 Blood pressure systolic 00 mm Hg 07/12/2024 Weight 255 lbs 07/12/2024 BMI 34.11 kg/m2 07/12/2024 Encounters Encounter Location Date Provider Diagnosis [facility] [address] [place] [address] 07/12/2024 Zachery Bustillos Colon cancer screening Z12.11 ; FPC (current) use of aspirin Z79.82 and Personal history of colonic polyps Z86.010 Assessments Encounter Date Diagnosis (ICD Code) Assessment Notes Treatment Notes Treatment Clinical Notes Section Notes 07/12/2024 Colon cancer screening (ICD-10 - Z12.11) Stop aspirin for 1 week before the colonoscopy Overall, Yared appears well. Given his history of tubular adenomas of the colon, his age, his good clinical appearance, and his last colonoscopy being over 5 years ago, I did recommend a followup colonoscopy for further screening purposes. We did review the rationale for that in regard to colon cancer prevention. Full consent is obtained for this, including risks of bleeding and perforation. The procedure will be done with monitored anesthesia care. He was advised to stop aspirin one week before the procedure. Yared was comfortable with this plan. Thank you again for allowing me to participate in Yared's care. I shall continue to keep you advised of his progress. 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 Given his history of tubular adenomas of the colon, his age, his good clinical appearance, and his last colonoscopy being over 5 years ago, I did recommend a followup colonoscopy for further screening purposes. We did review the rationale for that in regard to colon cancer prevention. Full consent is obtained for this, including risks of bleeding and perforation. The procedure will be done with monitored anesthesia care. He was advised to stop aspirin one week before the procedure. Yared was comfortable with this plan. Thank you again for allowing me to participate in Yared's care. I shall continue to keep you advised of his progress. 07/12/2024 Personal history of colonic polyps (ICD-10 - Z86.010) Overall, Yared appears well. Given his history of tubular adenomas of the colon, his age, his good clinical appearance, and his last colonoscopy being over 5 years ago, I did recommend a followup colonoscopy for further screening purposes. We did review the rationale for that in regard to colon cancer prevention. Full consent is obtained for this, including risks of bleeding and perforation. The procedure will be done with monitored anesthesia care. He was advised to stop aspirin one week before the procedure. Yared was comfortable with this plan. Thank you again for allowing me to participate in Yared's care. I shall continue to keep you advised of his progress. Plan Of Treatment Future Test Test Name Order Date COLONOSCOPY 01/01/2014 COLONOSCOPY 04/03/2019 COLONOSCOPY 07/12/2024 Next Appt Details Provider Name:Zachery Bustillos , 11/06/2024 08:40:00 AM, [address] [place] [address], [phone], Insurance Providers Payer Name Payer Address Payer Phone Subscriber Number Group Number Insured Name Patient Relationship to Insured Coverage Start Date Coverage End Date [place] [address] [facility] [place] [address] [id number] AVINASH MONROE Self - patient is the insured [employer] ATTN CLAIMS [address] [place] [address] [id number] AVINASH MONROE Self - patient is the insured Medical (General) History Medical History History ICD Code Screening Colonoscopy, 2008 -- 2 tubular adenomas removed; neg. colonoscopy in 04/2014 Denies [place],DM,CVA,Lung disease,renal dise ase Hyperlipidemia BPH Colonoscopy 04/2019 with one tubular shin helen Surgical History Surgery Date(Month/Year) Knee replacements on the right in 2013 a 2018 Retina detachment on the right
--- OUTSIDE RECORDS SUMMARY | 2024-10-09 16:35 | XMS_ITS ---
Author Organization Daniel Shoemaker MD Address [address] [facility] [address] [place] [phone] Care Team Providers Care Tire Specialist Name Role Phone Daniel Shoemaker Primary Care Provider Encounters Encounter Location Date Provider Diagnosis Daniel Shoemaker MD [address] [facility] [address] [place] [phone] 09/09/2024 Daniel Shoemaker Plan Of Treatment Next Appt Details Provider Name:Daniel ascencio, 12/16/2024 07:00:00 AM, [address] [place] [address], [address], [phone], Provider Name:Daniel ascencio, 12/24/2024 09:00:00 AM, [address] [place] [address], [address], [phone], Provider Name:Daniel ascencio, 06/24/2025 07:30:00 AM, [address] [place] [address], [address], [phone], Provider Name:Daniel ascencio, 07/01/2025 08:30:00 AM, [address] [place] [address], [address], [phone], Progress Notes * Alonso CASILLASDOB:1955 (69 yo M)Acc No.[id number]:09/09/2024 Patient:?Alonso CASILLAS :1955???Age:69 Y???Sex:Male Address: [address], [place], [place] [address] * true * Date:? Generated for Inna saldaña/Garfield/Nikole on:?10/09/2024 04:35 PM EST
--- OUTSIDE RECORDS SUMMARY | 2024-10-09 16:35 | XMS_ITS ---
Author Organization [facility] Address [address] [place] [address] Care Team Providers Care Neonatal Intensive Care Unit Nurse Name Role Phone Navid MAYES, Daniel Primary Care Provider Zachery Seo Unavailable [phone] Allergies No Known Allergies REASON FOR VISIT Patient presents today for a SCREENING COLON Medications Medication SIG (Take, Route, Frequency, Duration) Notes Start Date End Date Status Rosuvastatin Calcium 10 MG 1 tablet Oral ly Once a day for 30 day(s) Active PreserVision AREDS 2 - as directed Orall y once a day Active Aspir-81 81 MG 1 tablet Orally Once a day Active Co Q10 30 MG 1 capsule with a marcello l Orally Once a day Active Tamsulosin HCl 0.4 MG 1 capsule Orally O nce a day for 30 day(s) Active Azithromycin Hydrogencitrate Not-Taking Tobramycin-dexAMETHasone 0.3-0.1 % 4 drops into affected ear Ophthalmic Three times a day for 7 day(s) Active Vitamin C 500 MG 1 tablet Orally Once a day Active Centrum - as directed Orally once a day Active Problems Problem Type SNOMED Code ICD Code Onset Dates Problem Status W/U Status Risk Notes Problem Colon cancer screening (027405720) Colon cancer screening (Z12.11) Active confirmed Problem History of polyp of colon (situation) (446955852) Personal history of colonic polyps (Z86.010) Active confirmed Problem Long-term current use of antiplatelet drug (307212655584587) correction (current) use of aspirin (Z79.82) Active confirmed Vital Signs Blood pressure systolic 00 mm Hg 07/12/20 24 Blood pressure diastolic 00 mm Hg 024 Height 72.5 in 07/12/2024 Weight 255 lbs 07/12/2024 BMI 34.11 kg/m2 07/12/2024 Encounters Encounter Location Date Provider Diagnosis [facility] [address] [place] [address] 07/12/2024 Zachery Bustillos Colon cancer screening Z12.11 ; 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 07/12/2024 correction (current) use of aspirin (ICD-10 - Z79.82) [...] advised of his progress. Plan Of Treatment Treatment Notes Assessment Notes Colon cancer screening Stop aspirin for 1 week before the colonoscopy Future Test Test Name Order Date COLONOSCOPY 07/12/2024 Next Appt Details Follow Up: prn, Reason: Provider Name:Zachery Lakeshia Bustillos , 11/06/2024 08:40:00 AM, [address] [place] [address], [phone], Progress Notes * MABEL AVINASH BorjasDOB:1955 (68 yo M)Acc No.[id number]:07/12/2024 Progress Notes Patient:?MABEL AVINASH Suad Provider:?Zachery Bustillos MD :1955???Age:68 Y???Sex:Male Hipolito e:07/12/2024 Address:[address] [place], [place] [id number] Pcp:Daniel Shoemaker MD Subjective: * Chief Complaints: * ???Patient presents today fo r a SCREENING COLON * HPI: ???incontinence:? I saw Yared in the office today for evaluation of his personal history of tubular adenomas of the colon and need for colorectal cancer screening. ?I last saw Yared in April of 2019, at which time he underwent a followup screening colonoscopy with removal of a small tubular adenoma. He presently feels well. He enjoys a good appetite and denies any significant heartburn or dysphagia. His bowel movements have been regular and without any signs of bleeding. He denies any abdominal pains, jaundice, nor weight loss. He denies any known family history of colon cancer. * ROS:?General/Constitutional:?Change in appetite?denies.?Chills?denies.?Fatigue?denies.?Ophthalmologic:?Comments?all negative.?ENT:?Comments?all negative.?Respiratory:?hemoptysis?denies.?Cough?denies.?Cardiovascular:?Chest pain?denies.?Orthopnea?denies.?Gastrointestinal:?Comments?See HPI for details.?Genitourinary:?Hematuria?denies.?Dysuria?denies.?Musculoskeletal:?Painful joints?denies.?Weakness?denies.?Skin:?Itching?denies.?Rash?denies.?Neurologic:?Headache?denies.?Seizures?denies.?Psychiatric:?Comments?all negative.? * Medical History:? * Surgical History:?Knee repla cements on the right in 2013 and 2019 Retina detachment on the right * Hospitalization/Major Diagno stic Procedure:?No Hospitalization History. * Family History:?Father: dece ased, diagnosed with Diabetes.?Mother: , diagnosed with Diabetes.?Siblings: , brother , diagnosed with Diabetes.? No colorectal cancer. * Social History:?Tobacco Use:?Tobacco Use/Smoking?Are you a: nonsmoker.?Drugs/Alcohol:?Alcohol Screen?Points: 2, Interpretation: Negative.?Miscellaneous:?Marital status: . 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 ???Nonsmoker; no sig alcohol. * Medications:?TakingTamsulosi n HCl 0.4 MG Capsule 1 capsule Orally Once a dayTobramycin-dexAMETHasone 0.3-0.1 % Suspension 4 drops into affected ear Ophthalmic Three times a dayVitamin C 500 MG Tablet 1 tablet Orally Once a dayCentrum - Tablet as directed Orally once a dayAspir-81 81 MG Tablet Delayed Release 1 tablet Orally Once a dayCo Q10 30 MG Capsule 1 capsule with a meal Orally Once a dayRosuvastatin Calcium 10 MG Tablet 1 tablet Orally Once a dayPreserVision AREDS 2 - Capsule as directed Orally once a dayTaking Tamsulosin HCl 0.4 MG Capsule 1 capsule Orally Once a dayTaking Tobramycin-dexAMETHasone 0.3-0.1 % Suspension 4 drops into affected ear Ophthalmic Three times a dayTaking Vitamin C 500 MG Tablet 1 tablet Orally Once a dayTaking Centrum - Tablet as directed Orally once a dayTaking Aspir-81 81 MG Tablet Delayed Release 1 tablet Orally Once a dayTaking Co Q10 30 MG Capsule 1 capsule with a meal Orally Once a dayTaking Rosuvastatin Calcium 10 MG Tablet 1 tablet Orally Once a dayTaking PreserVision AREDS 2 - Capsule as directed Orally once a dayNot-Taking/PRNAzithromycin Hydrogencitrate Not-Taking/PRN Azithromycin Hydrogencitrate DiscontinuedTamsulosin HCl 0.4 MG Capsule 1 capsule Orally Once a dayMedication List reviewed and reconciled with the patientDiscontinued Tamsulosin HCl 0.4 MG Capsule 1 capsule Orally Once a dayMedication List reviewed and reconciled with the patient * Allergies:?N.K.D.A.yes[Aller gies Verified] Objective: * Vitals:?Wt: 255 lbs, Ht: 72. 5 in, BMI:34.11 Index, BP: 00/00 mm Hg. * Examination: ???General Examination: ?GENERAL APPEARANCE:?pleasant, well nourished, well developed, in no acute distress.?EYES:?sclera non-icteric.?ORAL CAVITY:?mucosa moist.?NECK/THYROID:?no cervical lymphadenopathy, neck supple.?SKIN:?nonjaundiced, no spider angiomata.?HEART:?S1, S2 normal.?LUNGS:?clear to auscultation bilaterally.?ABDOMEN:?normal bowel sounds, no guarding or rigidity, no guarding or rigidity, no masses palpable, soft, nontender, nondistended.?EXTREMITIES:?no edema.?NEUROLOGIC:?alert and oriented.? 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 Overall, Yared appears well. Given his history [...] to keep you advised of his progress. Plan: * Treatment: Notes: Stop aspirin for 1 week before the colonoscopy??2.?Personal history of colonic polyps?Procedure: COLONOSCOPY (Ordered for 07/12/2024)* with MACsched for 11/06/24 at 8:40 ammiralax * Procedure Codes:?3017F COLOR ECTAL CA SCREEN DOC [id number] TOBACCO [id number]-[id number] BP SCR NOT PRFRM REC REASON NOS * Preventive Medicine:? ??Counseling:?Care goal follow-up plan:?Above Normal BMI Follow-up?Giving encouragement to exercise,?BMI management provided?Yes.? ??Screenings:?Fall Risk Screening?Fall Risk Assessment:?No falls in the past year,?Screening:?No falls in the past year,?Assessment:?Not performed, no reason specified,?Plan of Care:?Not documented, no reason specified.? * Follow Up:?prn * * Sign off status: Completed true * Provider:?Zachery Bustillos MD Date:? 024 Generated for Inna saldaña/Garfield/Nikole on:?10/09/2024 04:35 PM EST History and Physical Notes * HPI (History of Present Illness) Category Sub-Category Detail Notes Category Not es incontinence I saw Yared in the office today for evaluation of his personal history of tubular adenomas of the colon and need for colorectal cancer screening. I last saw Yared in April of 2019, at which time he underwent a followup screening colonoscopy with removal of a small tubular adenoma. He presently feels well. He enjoys a good appetite and denies any significant heartburn or dysphagia. His bowel movements have been regular and without any signs of bleeding. He denies any abdominal pains, jaundice, nor weight loss. He denies any known family history of colon cancer. Examination Category Sub-Category Detail Notes Category Not es General Examination GENERAL APPEARANCE: pleasant , well nourished, well developed, in no acute distress HEAD: EYES: sclera non-icteric EARS: NOSE: THROAT: NECK/THYROID: no cervical lymphade nopathy, neck supple HEART: S1, S2 normal CHEST: LUNGS: clear to auscultatio n bilaterally ABDOMEN: normal bowel sounds, no guarding or rigidity, no guarding or rigidity, no masses palpable, soft, nontender, nondistended NEUROLOGIC: alert and oriented SKIN: nonjaundiced, no spi lien angiomata EXTREMITIES: no edema PERIPHERAL PULSES: BACK: BREASTS: MUSCULOSKELETAL: MALE GENITOURINARY: LYMPH NODES: RECTAL EXAM: FEMALE GENITOURINARY: ORAL CAVITY: mucosa moist
[2024-11-04 12:47] VITALS: BMI 34.1
--- NOTE | 2024-11-05 11:56 | HO.ANESPROP2 ---
Documented by User: Jordana Swartz NP 11/05/24 11:57 HPI - Anesthesia Eval Consult details Narrative: 69yo M for Colonoscopy [facility] Past Medical History Medical History (Updated 11/04/24 @ 12:48 by Erum Gay RN) BPH (benign prostatic hyperplasia) Hyperlipidemia Surgical History Surgical History (Updated 11/06/24 @ 07:30 by Nancy Macias RN) Hx of eye surgery Hx of total knee replacement H/O colonoscopy Social History Social History Patient Tobacco Use Status: Never used Tobacco Use of substances other than those prescribed or required for medical reasons: No Are you DNR?: No Advance Directives: No Advance Directives Information Provided: Yes Poor oral hygiene: No Meds Allergies Allergy/AdvReac Type Severity Reaction Status Date / Time No Known Allergies Allergy Unverified 04/23/20 15:57 [No Known Allergies*] Home Medications ?Medication ?Instructions ?Recorded ?Confirmed ?Last Taken ?Type ascorbic acid (vitamin C) 500 mg 500 mg PO DAILY 11/04/24 11/04/24 Unknown History tablet (Vitamin C) aspirin 81 mg tablet,delayed 81 mg PO DAILY 11/04/24 11/04/24 Unknown History release coenzyme Q10 30 mg capsule (Co 30 mg PO DAILY 11/04/24 11/04/24 Unknown History Q-10) multivitamin 1 tab PO DAILY 11/04/24 11/04/24 Unknown History rosuvastatin 10 mg tablet 10 mg PO DAILY 11/04/24 11/04/24 Unknown History tamsulosin 0.4 mg capsule 0.4 mg PO BEDTIME 11/04/24 11/04/24 Unknown History vit C 250 mg-vit E 90 mg-zinc 40 1 tab PO BID 11/04/24 11/04/24 Unknown History mg-copper 1 [id number]-[id number] capsule (PreserVision AREDS-2) Exam Height,Weight and Vital Signs: Height 6 ft 0.5 in Weight 115.666 kg Assessment and Plan Assessment Anesthesia Assessment: Chart Reviewed Documented by User: Lawson Maloney MD 11/06/24 09:17 [facility] Past Medical History Medical History (Updated 11/04/24 @ 12:48 by Erum Gay RN) BPH (benign prostatic hyperplasia) Hyperlipidemia Family History Family history of problems with anesthesia: No Surgical History Surgical History (Updated 11/06/24 @ 07:30 by Nancy Macias RN) Hx of eye surgery Hx of total knee replacement H/O colonoscopy History of Problems with Anesthesia: No Social History Social History Patient Tobacco Use Status: Never used Tobacco Use of substances other than those prescribed or required for medical reasons: No Are you DNR?: No Advance Directives: No Advance Directives Information Provided: Yes Poor oral hygiene: No Meds Allergies Allergy/AdvReac Type Severity Reaction Status Date / Time No Known Allergies Allergy Unverified 04/23/20 15:57 [No Known Allergies*] Home Medications ?Medication ?Instructions ?Recorded ?Confirmed ?Last Taken ?Type ascorbic acid (vitamin C) 500 mg 500 mg PO DAILY 11/04/24 11/04/24 Unknown History tablet (Vitamin C) aspirin 81 mg tablet,delayed 81 mg PO DAILY 11/04/24 11/04/24 Unknown History release coenzyme Q10 30 mg capsule (Co 30 mg PO DAILY 11/04/24 11/04/24 Unknown History Q-10) multivitamin 1 tab PO DAILY 11/04/24 11/04/24 Unknown History rosuvastatin 10 mg tablet 10 mg PO DAILY 11/04/24 11/04/24 Unknown History tamsulosin 0.4 mg capsule 0.4 mg PO BEDTIME 11/04/24 11/04/24 Unknown History vit C 250 mg-vit E 90 mg-zinc 40 1 tab PO BID 11/04/24 11/04/24 Unknown History mg-copper 1 dv-[id number]-bwvifl capsule (PreserVision AREDS-2) Exam Airway Mallampati Class: II TM Dist: >3cm Neck ROM: Full Heart: ok Lungs: ok Assessment and Plan Assessment Anesthesia Assessment: Anesthesia Plan Discussed Final Anesthetic Review Family History of Problems with Anesthesia: No History of Problems with Anesthesia: No NPO: Yes ASA Class: II Final Preanesthetic Review: No Changes in Pt Med Stat, Meds/Allgs Chart Reviewed, Consent Obtained/Reviewed and Anes Risks/Benef Reviewed Patient Risk: Low Procedure Risk: Low Anesthetic Plan Anesthetic Plan: MAC: and Agree w/ Assess. and Plan Disposition: Standard PACU
[2024-11-06 07:32] VITALS: BMI 31.8
[2024-11-06 07:41] VITALS: BP 123/80; PULSE 87; RESP 16; TEMP 36.3; O2SAT 97
[2024-11-06] MEDS: Lactated Ringers 1,000 ML 100 ML IVCONT (07:50)
--- NOTE | 2024-11-06 09:53 | PM.OP ---
Brief Operative Note Date of Service: 11/06/24 Pre-op diagnosis: Screening Post-op diagnosis: other (Polyp) Procedure: Colonoscopy to the cecum and TI with bx/removal of polyp Surgeon: Zachery Bustillos MD Anesthesia: MAC Was an Burning Plant Operator used for this Procedure?: No Estimated blood loss (mL): 2.0 Pathology: other (A. Cecal polyp) Condition: stable Disposition: PACU
[2024-11-06 09:54] VITALS: BP 122/72; PULSE 61; RESP 16; TEMP 36.5; O2SAT 96
[2024-11-06 10:07] VITALS: BP 122/78; PULSE 56; RESP 16; TEMP 36.3; O2SAT 98
--- NOTE | 2024-11-06 10:22 | OP_ITS ---
DATE OF SERVICE: 11/06/2024 SURGEON: Zachery Bustillos MD INDICATIONS: The patient presents for evaluation of personal history of tubular adenoma of the colon and need for colorectal cancer screening. Full consent has been obtained from him for this, including risks of bleeding and perforation. PREOPERATIVE DIAGNOSIS: POSTOPERATIVE DIAGNOSIS: PROCEDURE PERFORMED: Colonoscopy to the cecum and terminal ileum with biopsy and removal of polyp. ESTIMATED BLOOD LOSS: COMPLICATIONS: ANESTHESIA: Medication used, monitored anesthesia care. ASSISTANTS: SPECIMENS: PREOPERATIVE DIAGNOSES: Colorectal cancer screening and personal history of tubular adenoma of the colon. POSTOPERATIVE DIAGNOSES: Colorectal cancer screening and personal history of tubular adenoma of the colon, small colon polyp, diverticulosis, and internal hemorrhoids. DESCRIPTION OF PROCEDURE: The patient was placed in the left lateral decubitus position. The digital rectal exam revealed no abnormalities. The Olympus video pediatric colonoscope was entered into the rectum and advanced easily to the cecum. Once in the cecum, I did identify normal-appearing cecal pouch with appendiceal orifice, other than a 3 or 4 mm polyp, which was biopsied and completely removed with a cold biopsy forceps. The terminal ileum was cannulated and appeared normal. The scope was withdrawn back in the colon. The cecum appeared normal otherwise. The scope was slowly withdrawn assessing all mucosal surfaces carefully. Preparation was excellent. I did not visualize any sign of other polyps, colitis, nor angiodysplasia. There was a mild amount of sigmoid diverticulosis. In the rectum, scope was retroflexed visualizing internal hemorrhoids, but no other pathology. The rectal mucosa appeared normal. Scope was straightened and withdrawn from the patient. He tolerated the procedure well and was returned to the recovery area in stable condition. IMPRESSION: 1. Small colon polyp. 2. Diverticulosis. 3. Internal hemorrhoids. PLAN: The results of the pathology will be checked. I would recommend a repeat colonoscopy in 5 years for further screening. He will otherwise see me on a p.r.n. basis. MD DANIELITO Hammer/ROSALIE / [phone]
== END 2024-11-06 10:28 | disposition home or self-care (01) ==
PROVIDERS: PCP Internal Medicine; Visit Provider Internal Medicine
PROC: 0DJD8ZZ Inspection of Lower Intestinal Tract, Via Natural or Artificial Opening Endoscopic (ICD-10-PCS; CPT 45378; principal; 2024-11-06 08:40)
DX: Z12.11 Encounter for screening for malignant neoplasm of colon (principal); Z86.0101 Personal history of adenomatous and serrated colon polyps; D12.0 Benign neoplasm of cecum; K57.30 Diverticulosis of large intestine without perforation or abscess without bleeding; K64.8 Other hemorrhoids; E78.5 Hyperlipidemia, unspecified; N40.0 Benign prostatic hyperplasia without lower urinary tract symptoms; Z79.82 Long term (current) use of aspirin; Z79.899 Other long term (current) drug therapy; Z98.890 Other specified postprocedural states
CPT/HCPCS: 45380; 88305; J2003; J2704

== ENCOUNTER 2024-12-16 12:14 | Outpatient (REF) | payer MEDICARE, SELFPAY ==
--- OUTSIDE RECORDS SUMMARY | 2024-12-16 12:43 | XMS_ITS | Patient Health Record ---
Author Organization Daniel Shoemaker MD Address [address] [place], [place] [id number] Care Team Providers Care Artist Representative Name Role Phone Daniel Shoemaker Primary Care Provider [phone] Allergies Allergen (clinical drug ingredient) Drug/Non Drug Allergy documented on EMR Reaction Allergy Type Onset Date Status Simvastatin myalgia Drug Allergy Activ e Results Component Value Reference Range Notes Liver Panel Reviewed date:12/28/2023 05:07:12 PM Interpretation: Performing Lab:[facility], [address] [place] [phone] Notes/Report: Bilirubin Total 1.1 0.0-1.0 mg/dL Bilirubin Direct 0.3 0.0-0.5 mg/dL Aspartate Amino Transferase 28 5-37 U/L Alanine Aminotransferase 30 0-40 U/L Total Protein 7.6 6.5-8.0 g/dL Albumin Level 4.3 3.5-5.0 g/dL Alkaline Phosphatase 75 39-117 U/L Glucose Fasting Reviewed date:12/28/2023 05:06:31 PM Interpretation: Performing Lab:[facility], [address] [place] [phone] Notes/Report: Glucose Fasting 107 60-99 mg/dL A fasting glucose from 100-125 mg/dl is considered impaired (pre-diabetes). Lipid Panel with Reflex Reviewed date:12/28/2023 07:16:38 PM Interpretation: Performing Lab:[facility], [address] [place] [phone] Notes/Report: Triglycerides 89 <150 mg/dL Desirable Triglyceride: less than 150 mg/dL Borderline High Triglyceride 150-199 mg/dL High Triglyceride: 200-499 mg/dL Very High Triglyceride: greater than or equal to 5OO mg/dL Cholesterol 171 <200 mg/dL Desirable Cholesterol: less than 200 mg/dL Borderline High Cholesterol: 200-239 mg/dL High Cholesterol: greater than 239 mg/dL LDL Cholesterol Calculated 101 <100 mg/dL Desirable LDL: less than 100 mg/dL Near Optimal/Above Optimal LDL: 110-129 mg/dL Borderline High LDL: 130-159 mg/dL High LDL: 160-189 mg/dL Very High LDL: greater than or equal to 190 mg/dL HDL Cholesterol 53 >40 mg/dL Desirable HDL: greater than 40 mg/dL Note: This HDL assay may give artificially low results in patients with liver disease. Hemoglobin A1c Reviewed date:12/28/2023 12:23:58 PM Interpretation: Performing Lab:[address] [phone] Notes/Report: Hemoglobin A1c % 6.0 <6.0 % [...] average glucose, using the formula of the [id number] Average Glucose study (ADAG), Diabetes Care, Vol.31,#8, Mar. 2007 Complete Blood Count Auto Di ff Reviewed date:06/21/2024 12:21:01 PM Interpretation: Performing Lab:[facility], [address] [place] [phone] Notes/Report: White Blood Count 8.1 4.8-10.8 X10*3/uL Red Blood Count 5.03 4.60-5.80 X10*6/uL Hemoglobin 14.8 14.0-18.0 g/dl Hematocrit 44.7 42.0-52.0 % Mean Corpuscular Volume 88.9 80.0-98.0 fL Mean Corpuscular Hemoglobin 29.4 27.0-33.0 pg Mean Corpuscular HGB Conc 33.1 31.0-36.0 g/dl Red Cell Distribution Width 14.2 11.0-16.0 % Platelet Count 258 160-400 X10*3/uL Mean Platelet Volume 10.7 9.4-12.4 fL Neutrophils Percent Auto 58.7 45-73 % Imm Gran Pct Auto 0.4 0.0-0.4 % Lymphocytes Percent Auto 23.3 20-40 % Monocytes Percent Auto 10.4 2-11 % Eosinophils Percent Auto 6.6 0-4 % Basophils Percent Auto 0.6 0-2 % NRBC Pct Auto 0.0 0.0-0.2 /100WBC Neutrophils Absolute Auto 4.7 2.0-8.3 x10*3/u L Imm Gran Abs Auto 0.03 0.00-0.03 X10*3/uL Lymphocytes Absolute Auto 1.9 1.2-4.9 X10*3/u L Monocytes Absolute Auto 0.8 0.1-1.2 X10*3/uL Eosinophils Absolute Auto 0.5 0.0-0.4 X10*3/u L Basophils Absolute Auto 0.1 0.0-0.2 X10*3/uL NRBC Abs Auto 0.000 0.0-0.012 X10*3/uL Comprehensive [place]. Panel Fa st Reviewed date:06/21/2024 12:20:34 PM Interpretation: Performing Lab:[facility], [address] [place] [phone] Notes/Report: Sodium 139 135-145 mmol/L Potassium 4.3 3.3-5.1 mmol/L Chloride 106 96-108 mmol/L Carbon Dioxide 24 22-29 mmol/L Anion Gap 13 12-20 Blood Urea Nitrogen 13 9-16 mg/dL Creatinine 0.81 0.5-1.4 mg/dL Estimated Glomerular Filt Rate > 60 Chronic Kidney Disease: Estimated GFR < 60 mL/min/1.73m2 Severe Kidney Disease: Estimated GFR < 15 mL/min/1.73m2 Glucose Fasting 122 60-99 mg/dL A fasting glucose from 100-125 mg/dl is considered impaired (pre-diabetes). Calcium 9.7 8.4-10.2 mg/dL Bilirubin Total 0.7 0.0-1.0 mg/dL Aspartate Amino Transferase 33 5-37 U/L Alanine Aminotransferase 33 0-40 U/L Total Protein 7.3 6.5-8.0 g/dL Albumin Level 4.2 3.5-5.0 g/dL Alkaline Phosphatase 77 39-117 U/L Lipid Panel Reviewed date:06/21/2024 12:19:41 PM Interpretation: Performing Lab:[facility], [address] [place] [phone] Notes/Report: Triglycerides 89 <150 mg/dL Desirable Triglyceride: less than 150 mg/dL Borderline High Triglyceride 150-199 mg/dL High Triglyceride: 200-499 mg/dL Very High Triglyceride: greater than or equal to 5OO mg/dL Cholesterol 149 <200 mg/dL Desirable Cholesterol: less than 200 mg/dL Borderline High Cholesterol: 200-239 mg/dL High Cholesterol: greater than 239 mg/dL LDL Cholesterol Calculated 88 <100 mg/dL Desirable LDL: less than 100 mg/dL Near Optimal/Above Optimal LDL: 110-129 mg/dL Borderline High LDL: 130-159 mg/dL High LDL: 160-189 mg/dL Very High LDL: greater than or equal to 190 mg/dL HDL Cholesterol 44 >40 mg/dL Desirable HDL: greater than 40 mg/dL Note: This HDL assay may give artificially low results in patients with liver disease. PSA,Total (Free>4and<10) Reviewed date:06/21/2024 12:18:39 PM Interpretation: Performing Lab:[facility], [address] [place] [phone] Notes/Report: PSA,Total (Free>4and<10) 1.05 0.00-4.00 ng/mL A Free PSA was not performed: The percentage of Free PSA can be used to enhance the differentiation of prostate cancer from benign prostatic disease in subjects whose PSA levels are between 4.0 and 10.0 ng/mL. For subjects whose PSA levels are below 4.0 or above 10.0 ng/mL, the risk of prostate cancer is determined on the basis of the PSA alone. Therefore the % Free PSA is recommended only for those subjects whose PSA levels are between 4.0 and 10.0 ng/mL. PSA methodology: Yang Alinity i Chemiluminescent Microparticle Immunoassay (CMIA) UA ClnCatch+Micro w/rflx Cul t Reviewed date:06/21/2024 12:18:12 PM Interpretation: Performing Lab:[facility], [address] [place] [phone] Notes/Report: Urine, Clean Catch Color Urine Yellow Appearance Urine Clear PH 6.5 5.0-9.0 Glucose Urine UA Negative Negative mg/dL Urine Blood Negative Negative Specific [place] - Urine 1.020 1.005-1.025 Urine Protein Negative Neg-Trace mg/dL Urine Ketones Negative Negative mg/dL Nitrite Urine Negative Negative Leukocyte Esterase Urine Negative Negative RBC Urine 0-2 0-2 /HPF WBC Urine 0-5 0-5 /HPF Squamous Epithelial Cell Urine 0-2 0-2 /HPF Bacteria Urine None Seen None Seen Hyaline Casts Urine 0-2 0-2 /LPF Occult Blood, Stool, Guaiac Reviewed date:06/28/2024 08:45:49 AM Interpretation:Negative Performing Lab: Notes/Report: Negative Occult Blood, Stool, Guaiac Neg Hold Gold Reviewed date:12/28/2023 12:27:20 PM Interpretation: Performing Lab:[facility], [address] [place] [phone] Notes/Report: Ruiz Jennings See Note Specimen held untested for 24 hours; Call to request Chemistry testing. Pathology Reviewed date:11/07/2024 12:40:41 PM Interpretation: Performing Lab:[facility], [address] [place] [phone] Notes/Report: Name: Alonso Casillas Age/Sex: 69/M : 1955 Unit#: [id number] Attend Dr: Zachery Bustillos MD Re11/06/24 Status: [facility] Location: [facility] Disch: SPEC : [id number] RECD: 11/06/24 STATUS: ANNE RIVAS NUM: [id number] ELLIOTT: 11/06/[address] [facility] [address]: Zachery Bustillos MD ENTERED: 11/06/24 SP TYPE: Surgical OTHR DR: Daniel Shoemaker MD ORDERED: HE Stain/3, Gross Micro L4 Diagnosis Colon, cecal polyp: Tubular adenoma; negative for high grade dysplasia and carcinoma. Clinical History Pre-Op Dx: Encounter for screening for malignant neoplasm of colon Post-Op Dx: Colon polyp, diverticulosis, hemorrhoids Microscopic Description Microscopic sections reviewed. Material Received Cecal polyp Gross Description Received in formalin labeled ?cecal polyp? is a 0.25 cm patton-pink irregular tissue fragment, submitted in toto in a cassette labeled A. CEDS Copies To: Daniel Shoemaker MD [facility] [address] [place] [address] Zachery Bustillos MD [facility] [address] [place] [address] Signed (signature on file) Carmelita Aguirre 11/07/24 1230 END OF REPORT Reason For Referral No Information Medications Medication SIG (Take, Route, Frequency, Duration) Notes Start Date End Date Status Rosuvastatin Calcium 10 MG Take 1 tablet by mouth once daily Orally Once a day for 90 days Active Vitamin D 50 MCG (1999 UT) 1 capsule Ora lly Once a day for 30 day(s) Active Tamsulosin HCl 0.4 MG TAKE 1 CAPSULE BY MOUTH EVERY DAY Active Immunizations Vaccine Route Administration Date Status Comme nts Fluarix Quadrivalent IM Intramuscular 04/14/2014 Administered Shingles IM Intramuscular 03/02/2015 Administered Fluarix Quadrivalent IM Intramuscular 05/04/2015 Administered pt recieved injection at [facility] in [place]. PPSV23 (Pnemovax) IM Intramuscular 03/31/2017 Administered Fluarix Quadrivalent IM Intramuscular 04/18/2017 Administered Prevnar 13 IM Intramuscular 04/05/2018 Administered Fluarix Quadrivalent IM Intramuscular 05/03/2018 Administered Shingrix IM Intramuscular 12/27/2018 Administered TDaP IM Intramuscular 02/26/2019 Administered pt was given the vaccine at [facility]. Shingrix IM Intramuscular 04/09/2019 Administered Tetanus Unknown 02/26/2019 Administered Fluarix Quadrivalent IM Intramuscular 04/15/2019 Administered Fluarix Quadrivalent IM Intramuscular 04/22/2020 Administered Covid Vaccine Unknown 11/12/2020 Administered Pfizer Influenza High Dose IM Intramuscular 05/24/2021 Administer ed SARS-COV-2 Pfizer Unknown 12/02/2020 Administered Influenza High Dose IM Intramuscular 05/24/2022 Administer ed SARS-COV-2 Pfizer Unknown 02/17/2022 Administered SARS-COV-2 Pfizer Unknown 05/04/2022 Administered Influenza High Dose IM Intramuscular 04/16/2024 Administer ed PPSV23 (Pnemovax) Unknown 09/14/2015 Refused Flu Vaccine Unknown 04/14/2014 Pending Social History Tobacco Use: Social History Observation Description Date Details (start date - stop date) Never Smoker NA - NA Tobacco Use/Smoking Question Answer Notes Patient is a nonsmoker Additional Findings: Tobacco Non-User Fo rmer smoker, currently using no form of tobacco Alcohol Screen Question Answer Notes Did you have a drink contain ing alcohol in the past year? Yes How often did you have a dri nk containing alcohol in the past year? Monthly or less (1 point) How many drinks did you have on a typical day when you were drinking in the past year? 1 or 2 drinks (0 point) How often did you have 6 or more drinks on one occasion in the past year? Never (0 point) Points 1 Interpretation Negative Problems Problem Type SNOMED Code ICD Code Onset Dates Problem Status W/U Status Risk Notes Problem 97714260 Prostatism (N40.0) Active confirmed Problem 244641861 Morbid (severe) obesity due to excess calories (E66.01) Active confirmed Problem 874171032 Body mass index (BMI) 40.0-44.9, adult (Z68.41) Active confirmed Problem 0976258 Prediabetes (R73.09) Active confirmed Problem 749416451 Morbid obesity d ue to excess calories (E66.01) Active confirmed Problem 66158772 RBBB (I45.10) Active confirmed Problem 269956297 Pure hypercholesterolemia (E78.00) Active confirmed Problem 117280510 Dysplastic nevus (D23.9) Active confirmed Problem 962726051 Body mass index [BMI] 40.0-44.9, adult (Z68.41) Active confirmed Problem 163481351 Asymptomatic cholelithiasis (K80.20) Active confirmed Vital Signs Blood pressure diastolic 84 mm Hg 09/16/2024 Height 63.25 in 09/16/2024 Blood pressure systolic 172 mm Hg 09/16/2024 Weight 256 lbs 09/16/2024 BMI 44.99 kg/m2 09/16/2024 Encounters Encounter Location Date Provider Diagnosis Daniel Shoemaker MD [address] [place] [id number] 12/28/2023 Daniel Shoemaker Prediabetes R73.09 a nd Pure hypercholesterolemia E78.00 Daniel Shoemaker MD [address] [place] [id number] 04/16/2024 Daniel Shoemaker Encounter for immuni zation Z23 Daniel Shoemaker MD [address] [place] [id number] 06/21/2024 Daniel Shoemaker Prediabetes R73.09 ; Pure hypercholesterolemia E78.00 and Prostatism N40.0 Daniel Shoemaker MD [address] [place] [id number] 12/16/2024 Daniel Shoemaker Prediabetes R73.09 a nd Pure hypercholesterolemia E78.00 Daniel Shoemaker MD [address] [place] [id number] 01/04/2024 Daniel Shoemaker Prediabetes R73.09 ; Pure hypercholesterolemia E78.00 and Prostatism N40.0 Daniel Shoemaker MD [address] [place] [id number] 06/28/2024 Daniel Shoemaker Prediabetes R73.09 ; Prostatism N40.0 ; Morbid (severe) obesity due to excess calories E66.01 ; Body mass index [BMI] 40.0-44.9, adult Z68.41 ; Obesity, class 3 E66.813 ; Pure hypercholesterolemia E78.00 ; Colon cancer screening Z12.11 and Depression screening Z13.31 Daniel Shoemaker MD [address] [place] [id number] 09/16/2024 Daniel Shoemaker Gross hematuria R31. 0 ; Kidney lesion N28.9 and Asymptomatic cholelithiasis K80.20 Daniel Shoemaker MD [address] [place] [address] [id number] 09/09/2024 Daniel Shoemaker MD [address] [place] [id number] 09/17/2024 Daniel Shoemaker Pure hypercholestero lemia E78.00 Assessments Encounter Date Diagnosis (ICD Code) Assessment Notes Treatment Notes Treatment Clinical Notes Section Notes 12/28/2023 Prediabetes (ICD-10 - R73.09) 12/28/2023 Pure hypercholesterolemia (ICD-10 - E78.00) 04/16/2024 Encounter for immunization (ICD-10 - Z23) 06/21/2024 Prediabetes (ICD-10 - R73.09) 06/21/2024 Pure hypercholesterolemia (ICD-10 - E78.00) 12/16/2024 Prediabetes (ICD-10 - R73.09) 01/04/2024 Prediabetes (ICD-10 - R73.09) is rising slowly. encouraged a diet, will continue to monitor 01/04/2024 Pure hypercholesterolemia (ICD-10 - E78.00) is adequate, will continue current regiment 06/28/2024 Prediabetes (ICD-10 - R73.09) hopefully will get on diet, will continue to monitor 06/28/2024 Prostatism (ICD-10 - N40.0) doing fairly well, will continue current regiment and will continue to monitor 09/16/2024 Gross hematuria (ICD -10 - R31.0) seeing urology 09/16/2024 Kidney lesion (ICD-1 0 - N28.9) getting mri 09/17/2024 Pure hypercholesterolemia (ICD-10 - E78.00) 06/21/2024 Prostatism (ICD-10 - N40.0) 12/16/2024 Pure hypercholesterolemia (ICD-10 - E78.00) 01/04/2024 Prostatism (ICD-10 - N40.0) followed by urology. has not been having any problems 06/28/2024 Morbid (severe) obes ity due to excess calories (ICD-10 - E66.01) discussed need to diet.says he is going to 09/16/2024 Asymptomatic cholelithiasis (ICD-10 - K80.20) warned patient of the presence in case he has pain there 06/28/2024 Body mass index [BMI ] 40.0-44.9, adult (ICD-10 - Z68.41) advised on diet 06/28/2024 Obesity, class 3 (IC D-10 - E66.813) 06/28/2024 Pure hypercholesterolemia (ICD-10 - E78.00) stable, will continue current regiment 06/28/2024 Colon cancer screeni ng (ICD-10 - Z12.11) guaiac negative 06/28/2024 Depression screening (ICD-10 - Z13.31) negative screen Plan Of Treatment Pending Test Test Name Order Date Electrocardiogram (EKG) 03/31/2017 Electrocardiogram (EKG) 04/05/2018 Liver Panel 12/16/2024 Glucose Fasting 12/16/2024 Lipid Panel with Reflex 12/16/2024 Hemoglobin A1c 12/16/2024 Next Appt Details Provider Name:Daniel ascencio, 12/24/2024 09:00:00 AM, [address] [place] [address], [address], [place], [place], [phone], Provider Name:Daniel Licona ier, 06/24/2025 07:30:00 AM, [address], [address], [place], [place], [phone], Provider Name:Daniel Licona ier, 07/01/2025 08:30:00 AM, [address], [address], [place], [place], [phone], Insurance Providers Payer Name Payer Address Payer Phone Subscriber Number Group Number Insured Name Patient Relationship to Insured Coverage Start Date Coverage End Date MEDICARE NHIC [address] [place] [address] [id number] Alonso Casillas Self - patient is the insured [facility] [address] [place], [place] [id number] Alonso Casillas Self - patient is the insured Medical (General) History Medical History History ICD Code refuses flu vac colonoscopy 2008 tubular ruy noma due 2013; done 04/18/2014 - f/u 5 yrs; colonoscopy done 05/06/[address] Bustillos - repeat 5 years: 11/06/24 colonoscopy repeat 5y getting colonoscopy 07/30 Surgical History Surgery Date(Month/Year) Total Right Knee Arthroplasty 01/2016
--- OUTSIDE RECORDS SUMMARY | 2024-12-16 12:43 | XMS_ITS ---
Author Organization [facility] Address [address] [place] [address] Care Team Providers Care Intel Recruiter Name Role Phone Navid MAYES, Daniel Primary Care Provider Zachery Seo [phone] REASON FOR VISIT screening,hx polyps Encounters Encounter Location Date Provider Diagnosis [facility] Outpatient [address] [place] [id number] 11/06/2024 Zachery Bustillos Colon cancer scree tereza [...] Notes * AVINASH MONROEDOB:1955 (69 yo M)Acc No.[id number]:11/06/2024 COLON WITH MAC Patient:?AVINASH MONROE Provider:?Zachery Bustillos MD :1955???Age:69 Y???Sex:Male Hipolito e:11/06/2024 Address:[address] [place] [address] [facility] Pcp:Daniel Shoemaker MD Subjective: * Chief Complaints: * ???1. Screening,hx polyps. * Medical History:? Objective: * Vitals:? Assessment: * Assessment: 1.?Colon cancer screening - Z12.11 (Primary)???2.?Personal history of colonic polyps - Z86.0100???3.?Colon polyps - K63.5???4.?Other hemorrhoids - K64.8??? Plan: * Treatment: * Procedure Codes:?89132 COLON OSCOPY AND BIOPSY, Modifiers: PT , 0529F INTRVL 3+YRS PTS CLNSCP DOCD, 0528F RCMND FLW-UP 10 YRS DOCD * * The named appointment provid er may or may not be the originator of this progress note, and it is not deemed complete until electronically signed by the appointment provider. Sign off status: Pending * Provider:?Zachery Bustillos MD Date:? 025 Generated for Inna saldaña/Garfield/Lalitaitting on:?12/16/2024 12:43 PM EDT
--- OUTSIDE RECORDS SUMMARY | 2024-12-16 12:44 | XMS_ITS ---
Author Organization Daniel Shoemaker MD Address [address] [place] [phone] Care Team Providers Care Rn Relief Charge Name Role Phone Daniel Shoemaker Primary Care Provider REASON FOR VISIT FASTING LIPIDS Encounters Encounter Location Date Provider Diagnosis Daniel Shoemaker MD [address] [place] [address] [place] [id number] 12/16/2024 Daniel Shoemaker Prediabetes R73.09 a nd Pure hypercholesterolemia E78.00 Assessments Encounter Date Diagnosis (ICD Code) Assessment Notes Treatment Notes Treatment Clinical Notes Section Notes 12/16/2024 Prediabetes (ICD-10 - R73.09) 12/16/2024 Pure hypercholesterolemia (ICD-10 - E78.00) Plan Of Treatment Pending Test Test Name Order Date Liver Panel 12/16/2024 Glucose Fasting 12/16/2024 Lipid Panel with Reflex 12/16/2024 Hemoglobin A1c 12/16/2024 Next Appt Details Provider Name:Daniel ascencio, 12/24/2024 09:00:00 AM, [address] [place] [address], [address], [phone], Provider Name:Daniel ascencio, 06/24/2025 07:30:00 AM, [address] [place] [address], [address], [phone], Provider Name:Daniel ascencio, 07/01/2025 08:30:00 AM, [address] [place] [address], [address], [phone], Progress Notes * Alonso CASILLASDOB:1955 (69 yo M)Acc No.[id number]:12/16/2024 Progress Note Patient:?Alonso CASILLAS Provider:?Daniel Shoemaker MD :1955???Age:69 Y???Sex:Male Hipolito e:12/16/2024 Address: [address], [facility], [id number] Subjective: * Chief Complaints: * ???1. FASTING LIPIDS. * Medical History:? Objective: * Vitals:? Assessment: * Assessment: 1.?Prediabetes - R73.09 (Ana tano)???2.?Pure hypercholesterolemia - E78.00??? Plan: * Treatment: 2.?Pure hypercholesterolemia ?LAB: Liver Panel ?LAB: Glucose Fasting ?LAB: Lipid Panel with Reflex ?LAB: Hemoglobin A1c * Procedure Codes:?07947 VENIP UNCT, ROUTINE* * * The named appointment provid er may or may not be the originator of this progress note, and it is not deemed complete until electronically signed by the appointment provider. Sign off status: Pending * Provider:?Daniel Shoemaker MD Date:?0 12/16/2024 Generated for Inna saldaña/Garfield/eTransmitting on:?12/16/2024 12:43 PM EDT
--- OUTSIDE RECORDS SUMMARY | 2024-12-16 12:44 | XMS_ITS | Patient Health Record ---
Author Organization [facility] Address [address] [place] [address] Care Team Providers Care Kettle Operator Head Name Role Phone Navid MAYES, Daniel Primary Care Provider Zachery Seo Unavailable [phone] Allergies No Known Allergies Results Component Value Reference Range Notes Pathology (Not yet reviewed by provider) Interpretation: Performing Lab:[facility], [address] [place] [phone] Notes/Report: Name: Tiana Casillas Age/Sex: 69/M : 1955 Unit#: [id number] Attend Dr: Zachery Bustillos MD Re11/06/24 Status : [facility] Location: [place] Disch: SPEC : [id number] RECD : 11/06/24 STATUS: ANNE RIVAS NUM: [id number] ELLIOTT: 11/06/[address] [facility] [address]: Zachery Bustillos MD ENTERED: 11/06/24 SP TYPE: Surgical OTHR DR: Daniel Shoemaker MD ORDERED: HE Stain/3, Gross Micro L4 Diagnosis Colon, cecal polyp: Tubular adenoma; negative for high grade dysplasia and carcinoma. Clinical History Pre-Op Dx: Encounter for screening for malignant neoplasm of colon Post-Op Dx: Colon po lyp, diverticulosis, hemorrhoids Microscopic Description Microscopic sections reviewed. Material Received Cecal polyp Gross Description Received in formalin labeled ?cecal polyp? is a 0.25 cm patton-pink irregular tissue fragment, submitted in toto in a cassette labeled A. CEDS Copies To: Daniel Shoemaker MD [facility] [address] [place] [address] Drive [address] [place], [place] [phone] Zachery Bustillos MD [facility] [address] [place] [address] Drive [address] [place] [address] Signed (si gnature on file) Carmelita Aguirre 11/07/24 1230 END [...] Status Risk Notes Problem Colon cancer screening (Z12.11) Active confirmed Problem 552567606 Encounter for screening for malignant neoplasm of colon (Z12.11) Active confirmed Problem History of polyp of colon (situation) (755354430) Personal history of colonic polyps (Z86.010) Active confirmed Problem Long-term current use of antiplatelet drug (395474444787758) MCC (current) use of aspirin (Z79.82) Active confirmed Problem 931521992198059 Preprocedural examination (Z01.818) Active confirmed Problem 506212065 Hx of adenomatous colonic polyps (Z86.010) Active confirmed Vital Signs Blood pressure diastolic 00 mm Hg 07/12/2024 Height 72.5 in 07/12/2024 Blood pressure systolic 00 mm Hg 07/12/2024 Weight 255 lbs 07/12/2024 BMI 34.11 kg/m2 07/12/2024 Encounters Encounter Location Date Provider Diagnosis [facility] Outpatient [address] [place], [place] [phone] 11/06/2024 Zachery Bustillos Colon cancer screening Z12.11 ; Personal history of colonic polyps Z86.0100 ; Colon polyps K63.5 and Other hemorrhoids K64.8 [facility] [address] [place] [address] 07/12/2024 Zachery Bustillos Colon cancer screening Z12.11 ; MCC (current) use of aspirin Z79.82 and Personal history of colonic polyps Z86.010 Assessments Encounter Date Diagnosis (ICD Code) Assessment Notes Treatment Notes Treatment Clinical Notes Section Notes 11/06/2024 Colon cancer screening (ICD-10 - Z12.11) 11/06/2024 Personal history of colonic polyps (ICD-10 - Z86.0100) 07/12/2024 Colon cancer screening (ICD-10 - Z12.11) [...] keep you advised of his progress. 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 11/06/2024 Colon polyps (ICD-10 - K63.5) 07/12/2024 Personal history of colonic polyps (ICD-10 [...] to keep you advised of his progress. 11/06/2024 Other hemorrhoids (ICD-10 - K64.8) Plan Of Treatment Pending Test Test Name Order Date Pathology 11/06/2024 Future Test Test Name Order Date COLONOSCOPY 01/01/2014 COLONOSCOPY 04/03/2019 COLONOSCOPY 07/12/2024 Insurance Providers Payer Name Payer Address Payer Phone Subscriber Number Group Number Insured Name Patient Relationship to Insured Coverage Start Date Coverage End Date MEDICARE OF [place] [address] [place] [address] [phone] [id number] AVINASH CASILLAS Self - patient is the insured MED[employer] ATTN CLAIMS [address] [place] [phone] [id number] CRISTALJANELLE AVINASH Self - patient is the insured Medical (General) History Medical History History ICD Code Screening Colonoscopy, 2008 -- 2 tubular adenomas removed; neg. colonoscopy in 04/2014 Denies HI,DM,CVA,Lung disease,renal dise ase Hyperlipidemia BPH Colonoscopy 04/2019 with one tubular shin helen Surgical History Surgery Date(Month/Year) Knee replacements on the right in 2013 a 2018 Retina detachment on the right
--- OUTSIDE RECORDS SUMMARY | 2024-12-16 12:44 | XMS_ITS ---
Author Organization Daniel Shoemaker MD Address [address] [place] [phone] Care Team Providers Care Windows Server Specialist Name Role Phone Daniel Shoemaker Primary Care Provider [phone] REASON FOR VISIT RF Rosuvastatin Medications Medication SIG (Take, Route, Frequency, Duration) Notes Start Date End Date Status Rosuvastatin Calcium 10 MG Take 1 tablet by mouth once daily Orally Once a day for 90 days Active Encounters Encounter Location Date Provider Diagnosis Daniel Shoemaker MD [address] [place] [address] [place] [phone] 09/17/2024 Daniel Shoemaker Pure hypercholestero lemia E78.00 [...] days Next Appt Details Provider Name:Daniel ascencio, 12/24/2024 09:00:00 AM, [address] [place] [address], [address], [phone], Provider Name:Daniel ascencio, 06/24/2025 07:30:00 AM, [address] [place] [address], [address], [phone], Provider Name:Daniel ascencio, 07/01/2025 08:30:00 AM, [address] [place] [address], [phone], Progress Notes * Alonso CASILLAS SuadDOB:1955 (69 yo M)Acc No.[id number]:09/17/2024 Patient:?Alonso CASILLAS :1955???Age:69 Y???Sex:Male Address: [address], [place] [address] * Refills? Refill Rosuvastatin Calcium Tablet, 10 MG, Orally, 90, Take 1 tablet by mouth once daily, Once a day, 90 days, Refills=3 * true * Date:? Generated for Inna saldaña/Garfield/Hetalsmitting on:?12/16/2024 12:44 PM EDT
--- OUTSIDE RECORDS SUMMARY | 2024-12-16 12:44 | XMS_ITS ---
Author Organization Daniel Shoemaker MD Address [address] [place] [phone] Care Team Providers Care Enrollment Specialist Name Role Phone Daniel Shoemaker Primary Care Provider Allergies Allergen (clinical drug ingredient) Drug/Non Drug Allergy documented on EMR Reaction Allergy Type Onset Date Status Simvastatin myalgia Drug Allergy Activ e REASON FOR VISIT follow up appt from [facility] ER visit on 09-08-2024, has an apt [...] Problem Status W/U Status Risk Notes Problem 450471933 Asymptomatic cholelithiasis (K80.20) Active confirmed Vital Signs Blood pressure systolic 172 mm Hg 09/16/19 25 Blood pressure diastolic 84 mm Hg 025 Height 63.25 in 09/16/2024 Weight 256 lbs 09/16/2024 BMI 44.99 kg/m2 09/16/2024 Encounters Encounter Location Date Provider Diagnosis Daniel Shoemaker MD [address] [place] [phone] 09/16/2024 Daniel Shoemaker Gross hematuria R31. 0 [...] Next Appt Details Provider Name:Daniel Licona ier, 12/24/2024 09:00:00 AM, [address] [place] [address], [address], [place], [place], [phone], Provider Name:Daniel Licona ier, 06/24/2025 07:30:00 AM, [address] [place] [address], Suite [facility], [place], [place], [phone], Provider Name:Daniel Licona ier, 07/01/2025 08:30:00 AM, [address] [place] [address], Suite [facility], [place], [place], [phone], Progress Notes * Alonso CASILLASDOB:1955 (69 yo M)Acc No.[id number]:09/16/2024 Patient:?Alonso CASILLAS Provider:?Daniel Shoemaker MD :1955???Age:69 Y???Sex:Male Hipolito e:09/16/2024 Address: [address], [phone] Subjective: * Chief Complaints: * ???follow up appt from [facility] visit on 09-08-2024has an apt [...] MD Date:?0 09/16/2024 Generated for Inna saldaña/Garfield/eTransmitting on:?12/16/2024 12:43 PM EDT History and Physical Notes * HPI (History [...]
--- OUTSIDE RECORDS SUMMARY | 2024-12-16 12:44 | XMS_ITS ---
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 Assessment: * Assessment: 1.?exterminator helper termite (current) use o f aspirin - Z79.82 [...] Procedure Codes:?3017F COLOR ECTAL CA SCREEN DOC [id number] TOBACCO NON-[id number] BP SCR NOT PRFRM REC REASON NOS [...] Bustillos MD Date:? 024 Generated for Inna saldaña/Garfield/eTransmitting on:?12/16/2024 12:44 PM EDT History and Physical Notes * [...]
[2024-12-16 12:50] LABS: Estimated Average Glucose 126 mg/dL; Hemoglobin A1C 165.5663 umol/L; Total Hemoglobin (HGBA1C) 3907.5227 umol/L
[2024-12-16 13:22] LABS: Alanine Aminotransferase 34 U/L (0-40); Albumin Level 4.4 g/dL (3.5-5.0); Aspartate Amino Transferase 33 U/L (5-37); Bilirubin Direct 0.2 mg/dL (0.0-0.5); Bilirubin Total 0.7 mg/dL (0.0-1.0); Cholesterol 149 mg/dL (<200); Glucose Fasting 116 mg/dL (60-99); HDL Cholesterol 52 mg/dL (>40); LDL Cholesterol Calculated 83 mg/dL (<100); Total Protein 7.5 g/dL (6.5-8.0); Triglycerides 70 mg/dL (<150)
[2024-12-16 14:33] LABS: Alkaline Phosphatase 79 U/L (39-117)
[2024-12-16 15:42] LABS: Reflex LDLD? No
== END 2024-12-16 12:15 | disposition home or self-care (01) ==
LOC: HO.LNP 12:14
PROVIDERS: Visit Provider Internal Medicine
DX: R73.03 Prediabetes (principal); E78.00 Pure hypercholesterolemia, unspecified
CPT/HCPCS: 80061; 80076; 82947; 83036

== ENCOUNTER 2024-12-20 10:50 | Outpatient (REF) | payer MEDICARE, SELFPAY ==
--- NOTE | ~2024-12-20 | XR_ITS ---
EXAMINATION: XR LUMBAR SPINE 4 OR MORE VIEWS HISTORY: FLEXION AND EXTENSION, SPINAL STENOSIS COMPARISON: There are no prior studies for comparison. FINDINGS: AP, and neutral, flexion, and extension lateral views of the lumbar spine are submitted. Osseous mineralization is normal. Five nonrib-bearing lumbar vertebral bodies are identified, maintaining normal height without evidence of fracture. There is grade I spondylolisthesis of L2 on L3 which does not change with flexion or extension. There is diffuse moderate to severe degenerative disc disease with disc space narrowing and osteophyte formation. There is osteoarthritis of the facet joints. The visualized paraspinal soft tissues are unremarkable. XR/XR lumbar spine 4V min IMPRESSION: Diffuse moderate to severe degenerative disc disease. Grade I spondylolisthesis of L2 on L3 without change with flexion or extension. Electronically signed by: Zachery Brewster MD 12/20/2024 01:25 PM EDT
--- OUTSIDE RECORDS SUMMARY | 2024-12-20 11:21 | XMS_ITS | Clinical Summary ---
Author Organization [address] [facility] Address [address] [place] [address] Phone Care Team Providers Care Chief Sustainability Officer Name Role Phone Daniel Shoemaker MD Primary Care Provider Social History Tobacco Use Types Packs/Day Years [...] - 2023-2 5 season) 2024 Influenza Vaccine (Season Ended) 2025 RSV Immunization Adult Patie nts (1 - 1-dose 75+ series) 2029 HIB [...] age to complete this topic Meningococcal B Vaccine Aged Out No l onger eligible based on patient's age to complete this topic RSV Immunization Patients Un lien 20 months Aged Out No longer eligible b ased on patient's age to complete this topic Varicella Vaccines Aged Out No longer eligible based on patient's age to complete this topic Insurance MEDICARE [facility] Care Teams Chief Sustainability Officer Relationship Specialty Start Date End Date Daniel Shoemaker MD PCP - General 03/27/23
--- OUTSIDE RECORDS SUMMARY | 2024-12-20 11:21 | XMS_ITS | Encounter Summary ---
Author Organization [facility] Address [address] [place] [address] Care Team Providers Care Patient Relations Manager Name Role Phone Daniel Shoemaker MD Primary Care Provider Encounter Details Date Type Department Care Team (Late st Contact Info) Description 08/12/2024 Lab Requisition [facility] - Main Lab [address] [facility] [place] [address] Herson Rodriguez PA [address] [place] [address] Benign essential microscopic hematuria Social [...] 12:00 AM EST) Final Diagnosis Urine, Voided ([id number]): Negative for high grade urothelial carcinoma. Acute inflammation present. 08/13/2024 10:01 AM EST [facility] Clinical Information Benign essential microscopic hematuria R31.1 [id number] Urine cytology with reflex UroVysion (AUC/SHGUC) 08/13/2024 10:01 AM EST [facility] Gross Description A. Urine, Voided, : [id number] Received is one ThinPrep slide for cytology. 08/13/2024 10:01 AM [facility] Disclaimer Unless otherwise specified, all tissue is 10% NB formalin fixed and paraffin embedded. Technical pathology services provided by [facility] [address], [place] [address] (CLIA #[id number]/Rizwan Pederson MD, Psychometrist) 08/13/2024 10:01 AM [facility] Tissue Urine specimen from urethra / Unknown 07/26/2024 08/12/2024 8:25 AM EST us H[facility] PATHOLOGY ORDERAB LES Final Result [facility] [address] [place] [address], documented in this encounter Visit Diagnoses Diagnosis Benign essential microscopic hematuria documented in this encounter Care Teams Patient Relations Manager Relationship Specialty Start Date End Date Daniel Shoemaker MD PCP - General 03/27/23 documented as of this encounter
--- OUTSIDE RECORDS SUMMARY | 2024-12-20 11:21 | XMS_ITS ---
Author Organization Daniel Shoemaker MD Address [address] [place] [phone] Care Team Providers Care Employment And Claims Aide Name Role Phone Daniel Shoemaker Primary Care Provider REASON FOR VISIT Views lumbar spine Encounters Encounter Location Date Provider Diagnosis Daniel Shoemaker MD [address] [facility] [address] [place] [phone] 12/20/2024 Daniel Shoemaker Spinal stenosis M48.00 Assessments Encounter Date Diagnosis (ICD Code) Assessment Notes Treatment Notes Treatment Clinical Notes Section Notes 12/20/2024 Spinal stenosis (ICD-10 - M48.00) Plan Of Treatment Pending Test Test Name Order Date XR LUMBAR SPINE 4+ VIEWS 12/20/2024 Next Appt Details Provider Name:Daniel ascencio, 12/24/2024 09:00:00 AM, [address] [place] [address], [address], [phone], Provider Name:Daniel ascencio, 06/24/2025 07:30:00 AM, [address] [place] [address], [address], [phone], Provider Name:Daniel ascencio, 07/01/2025 08:30:00 AM, [address] [place] [address], [address], [phone], Progress Notes * Alonso CASILLASDOB:1955 (69 yo M)Acc No.[id number]:12/20/2024 Patient:?Alonso CASILLAS :1955???Age:69 Y???Sex:Male Address: [address], [place] [address] Subjective: * Chief Complaints: * ???Views lumbar spine * Medical History:? * Surgical History:? * Hospitalization/Major Diagno stic Procedure:? * Medications:? Objective: * Vitals:? * Physical Examination:? Assessment: * Assessment: 1.?Spinal stenosis - M48.00? ?? Plan: * Treatment: * Procedure Codes:? * true * Date:? Generated for Inna saldaña/Garfield/eTransmitting on:?12/20/2024 11:21 AM EDT
--- OUTSIDE RECORDS SUMMARY | 2024-12-20 11:21 | XMS_ITS ---
Author Organization Daniel Shoemaker MD Address [address] [place] [phone] Care Team Providers Care Call Worker Person Name Role Phone Daniel Shoemaker Primary Care Provider [phone] REASON FOR VISIT RF Rosuvastatin Medications Medication SIG (Take, Route, Frequency, Duration) Notes Start Date End Date Status Rosuvastatin Calcium 10 MG Take 1 tablet by mouth once daily Orally Once a day for 90 days Active Encounters Encounter Location Date Provider Diagnosis Daniel Shoemaker MD [address] [place] [address] [place] [phone] 09/17/2024 Daniel Shoemaker Pure hypercholestero lemia E78.00 [...] Details Provider Name:Daniel ascencio, 12/24/2024 09:00:00 AM, [address] [place] [address], [address], [phone], Provider Name:Daniel ascecnio, 06/24/2025 07:30:00 AM, [address] [place] [address], [address], [phone], Provider Name:Daniel ascencio, 07/01/2025 08:30:00 AM, [address] [place] [address], [phone], Progress Notes * Alonso CASILLAS JDOB:1955 (69 yo M)Acc No.[id number]:09/17/2024 Patient:?Alonso CASILLAS :1955???Age:69 Y???Sex:Male Address: [address], [place] [address] * Refills? Refill Rosuvastatin Calcium Tablet, 10 MG, Orally, 90, Take 1 tablet by mouth once daily, Once a day, 90 days, Refills=3 * true * Date:? Generated for Inna saldaña/Garfield/Hetalsmitting on:?12/20/2024 11:21 AM EDT
--- OUTSIDE RECORDS SUMMARY | 2024-12-20 11:21 | XMS_ITS | Encounter Summary ---
Author Organization [facility] Address [address] [place] [address] Care Team Providers Care Wharf Hand Name Role Phone Daniel Shoemaker MD Primary Care Provider Encounter Details Date Type Department Care Team (Late st Contact Info) Description 09/19/2024 Lab Requisition [facility] - Main Lab [address] [facility] [place] [address] Herson Rodriguez PA [address] [place] [address] Gross hematuria Social History Tobacco [...] AM EST) Final Diagnosis A. Urine, Voided, ([id number]): Negative for high grade urothelial carcinoma. Results of UroVysion fluorescence in situ hybridization (FISH) testing: CEP3: Normal CEP7: Normal CEP17: Normal LSI 9p21: Normal Interpretation: Normal profile Controls stained appropriately. Note: The results are intended as a screening device and should be interpreted in association with other clinical and pathological findings. 09/25/2024 9:42 AM EST [facility] ([facility] Clinical Information Gross hematuria R31.0 Urine Cytology/FISH (now) 09/25/2024 9:42 AM [facility] Gross Description A. Urine, Voided, ([id number]): Received one ThinPrep slide for cytology and one ThinPrep slide for UroVysion FISH Second cytology slide processed due to stain issue with first slide. 09/25/2024 9:42 AM [facility] Disclaimer Unless otherwise specified, all tissue is 10% NB formalin fixed and paraffin embedded. Technical pathology services provided by [facility] at [address], [place] [address] (CLIA #[id number]/Janeen Pederson MD, Manager Er) 09/25/2024 9:42 AM [facility] Tissue Urine specimen from urethra / Unknown 09/13/2024 09/19/2024 3:10 PM EST us Herson [facility] PATHOLOGY ORDERAB LES Final Result [facility] [address] [place] [address], documented in this encounter Visit Diagnoses Diagnosis Gross hematuria documented in this encounter Care Teams Wharf Hand Relationship Specialty Start Date End Date Daniel Shoemaker MD PCP - General 03/27/23 documented as of this encounter
--- OUTSIDE RECORDS SUMMARY | 2024-12-20 11:22 | XMS_ITS | Patient Health Record ---
Author Organization [facility] Address [address] [place] [address] Care Team Providers Care Data Governance Consultant Name Role Phone Navid MAYES, Daniel Primary Care Provider Zachery Seo Unavailable [phone] Allergies No Known Allergies Results Component Value Reference Range Notes Pathology (Not yet reviewed by provider) Interpretation: Performing Lab:[facility], [address] [place] [phone] Notes/Report: Name: Tiana Casillas Age/Sex: 69/M : 1955 Unit#: [id number] Attend Dr: Zachery Bustillos MD Re11/06/24 Status : [facility] Location: [place] Disch: SPEC : [id number] RECD : 11/06/24 STATUS: ANNE RIVAS NUM: [id number] ELLIOTT: 11/06/24 [facility] DR: Zachery Bustillos MD ENTERED: 11/06/24 [...] To: Daniel Shoemaker MD [facility] [address] [place] [address] Drive [address] [place], [place] [id number] Zachery Bustillos MD [facility] [address] [place] [address] [address] [place] [address] Signed (si gnature on file) Carmelita Aguirre [...] Colon cancer screening (Z12.11) Active confirmed Problem 445648761 Encounter for screening for malignant neoplasm of colon (Z12.11) Active confirmed Problem History of polyp of colon (situation) (301110397) Personal history of colonic polyps (Z86.010) Active confirmed Problem Long-term current use of antiplatelet drug (891997726222377) skilled nursing (current) use of aspirin (Z79.82) Active confirmed Problem 184318562968239 Preprocedural examination (Z01.818) Active confirmed Problem 267649913 Hx of adenomatous colonic polyps (Z86.010) Active confirmed Vital Signs Blood pressure diastolic 00 mm Hg 07/12/2024 Height 72.5 in 07/12/2024 Blood pressure systolic 00 mm Hg 07/12/2024 Weight 255 lbs 07/12/2024 BMI 34.11 kg/m2 07/12/2024 Encounters Encounter Location Date Provider Diagnosis [facility] Outpatient [address] [place], [place] [phone] 11/06/2024 Zachery Bustillos Colon cancer screening Z12.11 ; Personal history of colonic polyps Z86.0100 ; Colon polyps K63.5 and Other hemorrhoids K64.8 [facility] [address] [place] [address] 07/12/2024 Zachery Bustillos Colon cancer screening Z12.11 ; skilled nursing (current) use of aspirin Z79.82 and Personal [...] keep you advised of his progress. 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 colonoscopy in 04/[address],DM,CVA,Lung disease,renal dise ase Hyperlipidemia BPH Colonoscopy 04/2019 with one tubular shin helen Surgical History Surgery Date(Month/Year) Knee replacements on the right in 2013 a 2018 Retina detachment on the right
--- OUTSIDE RECORDS SUMMARY | 2024-12-20 11:22 | XMS_ITS ---
Author Organization [facility] Address [address] [place] [address] Care Team Providers Care Plastics Bench Mechanic Name Role Phone Navid MAYES, Daniel Primary Care Provider Zachery Seo [phone] REASON FOR VISIT screening,hx polyps Encounters Encounter Location Date Provider Diagnosis [facility] [place] [address] [place] [phone] 11/06/2024 Zachery Bustillos Colon cancer scree tereza [...] Notes * AVINASH MONROEDOB:1955 (69 yo M)Acc No.[id number]:11/06/2024 COLON WITH MAC Patient:?AVINASH MONROE Provider:?Zachery Bustillos MD :1955???Age:69 Y???Sex:Male Hipolito e:11/06/2024 Address:[address] [place] [address] [facility] Pcp:Daniel Shoemaker MD Subjective: * Chief Complaints: * ???1. Screening,hx polyps. * Medical History:? Objective: * Vitals:? Assessment: * Assessment: 1.?Colon cancer screening - Z12.11 (Primary)???2.?Personal history of colonic polyps - Z86.0100???3.?Colon polyps - K63.5???4.?Other hemorrhoids - K64.8??? Plan: * Treatment: * Procedure Codes:?67705 COLON OSCOPY AND BIOPSY, Modifiers: PT , [...] MD Date:? 025 Generated for Inna saldaña/Garfield/Lalitaitting on:?12/20/2024 11:21 AM EDT
--- OUTSIDE RECORDS SUMMARY | 2024-12-20 11:22 | XMS_ITS | Patient Health Record ---
Author Organization Daniel Shoemaker MD Address [address] [place], [place] [phone] Care Team Providers Care Tube Fitter Name Role Phone Daniel Shoemaker Primary Care Provider Allergies Allergen (clinical drug ingredient) Drug/Non Drug Allergy documented on EMR Reaction Allergy Type Onset Date Status Simvastatin myalgia Drug Allergy Activ e Results Component Value Reference Range Notes Liver Panel Reviewed date:12/28/2023 05:07:12 PM Interpretation: Performing Lab:[facility], [address] [place] [phone] Notes/Report: Bilirubin Total 1.1 0.0-1.0 mg/dL Bilirubin Direct 0.3 0.0-0.5 mg/dL Aspartate Amino Transferase 28 5-37 U/L Alanine Aminotransferase 30 0-40 U/L Total Protein 7.6 6.5-8.0 g/dL Albumin Level 4.3 3.5-5.0 g/dL Alkaline Phosphatase 75 39-117 U/L Glucose Fasting Reviewed date:12/28/2023 05:06:31 PM Interpretation: Performing Lab:[facility], [address] [place] [phone] Notes/Report: Glucose Fasting 107 60-99 mg/dL A fasting glucose from 100-125 mg/dl is considered impaired (pre-diabetes). Lipid Panel with Reflex Reviewed date:12/28/2023 07:16:38 PM Interpretation: Performing Lab:[facility], [address] [place] [phone] Notes/Report: Triglycerides 89 <150 mg/dL Desirable Triglyceride: [...] A1c Reviewed date:12/28/2023 12:23:58 PM Interpretation: Performing Lab:[address] [phone] Notes/Report: Hemoglobin A1c % 6.0 <6.0 % [...] average glucose, using the formula of the R3N-Qinbwyo Average Glucose study (ADAG), Diabetes Care, Vol.31,#8, Mar. 2007 Complete Blood Count Auto Di ff Reviewed date:06/21/2024 12:21:01 PM Interpretation: Performing Lab:[facility], [address] [place] [phone] Notes/Report: White Blood Count 8.1 4.8-10.8 X10*3/uL [...] NRBC Abs Auto 0.000 0.0-0.012 X10*3/uL Comprehensive [place]. Panel Fa st Reviewed date:06/21/2024 12:20:34 PM Interpretation: Performing Lab:[facility], [address] [place] [phone] Notes/Report: Sodium 139 135-145 mmol/L Potassium 4.3 [...] Panel Reviewed date:06/21/2024 12:19:41 PM Interpretation: Performing Lab:[facility], [address] [place] [phone] Notes/Report: Triglycerides 89 <150 mg/dL Desirable Triglyceride: [...] (Free>4and<10) Reviewed date:06/21/2024 12:18:39 PM Interpretation: Performing Lab:[facility], [address] [place] [phone] Notes/Report: PSA,Total (Free>4and<10) 1.05 0.00-4.00 ng/mL A [...] t Reviewed date:06/21/2024 12:18:12 PM Interpretation: Performing Lab:[facility], [address] [place] [phone] Notes/Report: Urine, Clean Catch Color Urine Yellow Appearance Urine Clear PH 6.5 5.0-9.0 Glucose Urine UA Negative Negative mg/dL Urine Blood Negative Negative Specific Gwynn - Urine 1.020 1.005-1.025 Urine Protein Negative Neg-Trace mg/dL Urine Ketones Negative Negative mg/dL Nitrite Urine Negative Negative Leukocyte Esterase Urine Negative Negative RBC Urine 0-2 0-2 /HPF WBC Urine 0-5 0-5 /HPF Squamous Epithelial Cell Urine 0-2 0-2 /HPF Bacteria Urine None Seen None Seen Hyaline Casts Urine 0-2 0-2 /LPF Liver Panel Reviewed date:12/16/2024 05:16:25 PM Interpretation: Performing Lab:[facility], [address] [place] [phone] Notes/Report: Bilirubin Total 0.7 0.0-1.0 mg/dL Bilirubin Direct 0.2 0.0-0.5 mg/dL Aspartate Amino Transferase 33 5-37 U/L Alanine Aminotransferase 34 0-40 U/L Total Protein 7.5 6.5-8.0 g/dL Albumin Level 4.4 3.5-5.0 g/dL Alkaline Phosphatase 79 39-117 U/L Glucose Fasting Reviewed date:12/16/2024 05:16:16 PM Interpretation: Performing Lab:[facility], [address] [place] [phone] Notes/Report: Glucose Fasting 116 60-99 mg/dL A fasting glucose from 100-125 mg/dl is considered impaired (pre-diabetes). Lipid Panel with Reflex Reviewed date:12/16/2024 05:17:29 PM Interpretation: Performing Lab:[facility], [address] [place] [phone] Notes/Report: Triglycerides 70 <150 mg/dL Desirable Triglyceride: [...] A1c Reviewed date:12/16/2024 05:17:03 PM Interpretation: Performing Lab:[facility], [address] [place] [phone] Notes/Report: Hemoglobin A1c % 6.0 <6.0 % [...] average glucose, using the formula of the U3J-Rzxpsuv Average Glucose study (ADAG), Diabetes Care, Vol.31,#8, Mar. 2007 Occult Blood, Stool, Guaiac Reviewed date:06/28/2024 08:45:49 AM Interpretation:Negative Performing Lab: Notes/Report: Negative Occult Blood, Stool, Guaiac Neg Ruiz Jennings Reviewed date:12/28/2023 12:27:20 PM Interpretation: Performing Lab:[facility], [address] [place] [phone] Notes/Report: Ruiz Jennings See Note Specimen held untested for 24 hours; Call to request Chemistry testing. Pathology Reviewed date:11/07/2024 12:40:41 PM Interpretation: Performing Lab:[facility], [address] [place] [phone] Notes/Report: Name: Alonso Casillas Age/Sex: 69/M : 1955 Unit#: [id number] Attend Dr: Zachery Bustillos MD Re11/06/24 Status: [facility] Location: [facility] Disch: SPEC : [id number] RECD: 11/06/24 STATUS: ANNE RIVAS NUM: [id number] ELLIOTT: 11/06/24 [facility] DR: Zachery Bustillos MD ENTERED: 11/06/24-1020 SP TYPE: Surgical OTHR DR: Daniel Shoemaker [...] To: Daniel Shoemaker MD [facility] [address] [place], [place] [phone] Zachery Bustillos MD [facility] [address] [place] [address] Signed (signature on file) Carmelita Delaware 11/07/24 1230 END OF REPORT Ruiz Jennings Reviewed date:12/16/2024 12:26:58 PM Interpretation: Performing Lab:[facility], [address] [place] [phone] Notes/Report: Ruiz Jennings See Note Specimen held untested for 24 hours; Call to request Chemistry testing. Reason For Referral No Information Medications Medication SIG (Take, Route, Frequency, Duration) Notes Start Date End Date Status Rosuvastatin Calcium 10 MG Take 1 tablet by mouth once daily Orally Once a day for 90 days Active Vitamin D 50 MCG (1999) 1 capsule Ora lly Once a day for 30 day(s) Active Tamsulosin HCl 0.4 MG TAKE 1 CAPSULE BY MOUTH EVERY DAY Active Immunizations Vaccine Route Administration Date Status Comme nts Fluarix Quadrivalent IM Intramuscular 04/14/2014 Administered Shingles IM Intramuscular 03/02/2015 Administered Fluarix Quadrivalent IM Intramuscular 05/04/2015 Administered pt recieved injection at [facility] in [place]. PPSV23 (Pnemovax) IM Intramuscular 03/31/2017 Administered Fluarix Quadrivalent IM Intramuscular 04/18/2017 Administered Prevnar 13 IM Intramuscular 04/05/2018 Administered Fluarix Quadrivalent IM Intramuscular 05/03/2018 Administered Shingrix IM Intramuscular 12/27/2018 Administered TDaP IM Intramuscular 02/26/2019 Administered pt was given the vaccine at [facility]. Shingrix IM Intramuscular 04/09/2019 Administered Tetanus [...] Problem Status W/U Status Risk Notes Problem 64500521 Prostatism (N40.0) Active confirmed Problem 469546545 Morbid (severe) obesity due to excess calories (E66.01) Active confirmed Problem 109224127 Body mass index (BMI) 40.0-44.9, adult (Z68.41) Active confirmed Problem 4919160 Prediabetes (R73.09) Active confirmed Problem 465000966 Morbid obesity d ue to excess calories (E66.01) Active confirmed Problem 24110561 RBBB (I45.10) Active confirmed Problem 383890931 Pure hypercholesterolemia (E78.00) Active confirmed Problem 091451526 Dysplastic nevus (D23.9) Active confirmed Problem 067273668 Body mass index [BMI] 40.0-44.9, adult (Z68.41) Active confirmed Problem 556735258 Asymptomatic cholelithiasis (K80.20) Active confirmed Vital Signs Blood pressure diastolic 84 mm Hg 09/16/2024 Height 63.25 in 09/16/2024 Blood pressure systolic 172 mm Hg 09/16/2024 Weight 256 lbs 09/16/2024 BMI 44.99 kg/m2 09/16/2024 Encounters Encounter Location Date Provider Diagnosis Daniel Shoemaker MD [address] [place] [id number] 12/28/2023 Daniel Shoemaker Prediabetes R73.09 a nd Pure hypercholesterolemia E78.00 Daniel Shoemaker MD [address] [place] [id number] 04/16/2024 Daniel Shoemaker Encounter for immuni zation Z23 Daniel Shoemaker MD [address] [place] [id number] 06/21/2024 Daniel Shoemaker Prediabetes R73.09 ; Pure hypercholesterolemia E78.00 and Prostatism N40.0 Daniel Shoemaker MD [address] [place] [id number] 12/16/2024 Daniel Shoemaker Prediabetes R73.09 a nd Pure hypercholesterolemia E78.00 Daniel Shoemaker MD [address] [place] [id number] 01/04/2024 Daniel Shoemaker Prediabetes R73.09 ; Pure hypercholesterolemia E78.00 and Prostatism N40.0 Daniel Shoemaker MD [address] [place] [id number] 06/28/2024 Daniel Eppersonardirodger Prediabetes R73.09 ; Prostatism N40.0 ; Morbid (severe) obesity due to excess calories E66.01 ; Body mass index [BMI] 40.0-44.9, adult Z68.41 ; Obesity, class 3 E66.813 ; Pure hypercholesterolemia E78.00 ; Colon cancer screening Z12.11 and Depression screening Z13.31 Daniel Shoemaker MD [address] [place] [id number] 09/16/2024 Daniel Shoemaker Gross hematuria R31. 0 ; Kidney lesion N28.9 and Asymptomatic cholelithiasis K80.20 Daniel Shoemaker MD [address] [place] [id number] 09/09/2024 Daniel Shoemaker MD [address] [place] [address] [id number] 09/17/2024 Daniel Shoemaker Pure hypercholestero lemia E78.00 Daniel Shoemaker MD [address] [place], [place] [id number] 12/20/2024 Daniel Shoemaker Spinal stenosis M48. 00 Assessments Encounter Date Diagnosis (ICD Code) Assessment [...] mri 09/17/2024 Pure hypercholesterolemia (ICD-10 - E78.00) 12/20/2024 Spinal stenosis (ICD -10 - M48.00) 06/21/2024 Prostatism (ICD-10 - N40.0) 12/16/2024 Pure [...] Date Electrocardiogram (EKG) 03/31/2017 Electrocardiogram (EKG) 04/05/2018 XR LUMBAR SPINE 4+ VIEWS 12/20/2024 Next Appt Details Provider Name:Daniel Licona ier, 12/24/2024 09:00:00 AM, [address] [place] [address], [address], [phone], Provider Name:Daniel Licona ier, 06/24/2025 07:30:00 AM, [address] [place] [address], [place] [address], [place], [place], [phone], Provider Name:Daniel Licona ier, 07/01/2025 08:30:00 AM, [address] [place] [address], [place] [address], [place], [place], [phone], Insurance Providers Payer Name Payer Address Payer Phone Subscriber Number Group Number Insured Name Patient Relationship to Insured Coverage Start Date Coverage End Date [employer] [address] [place] [address] [id number] Alonso Casillas Self - patient is the insured [employer] [facility] [address] [place], [place] [id number] Alonso Casillas Self - patient is [...]
--- OUTSIDE RECORDS SUMMARY | 2024-12-20 11:22 | XMS_ITS ---
Author Organization [facility] Address [address] [place] [address] Care Team Providers Care Coatings Inspector Name Role Phone Navid MAYES, Daniel Primary Care Provider Zachery Seo Unavailable [phone] Allergies No Known Allergies REASON FOR VISIT [...] Status Risk Notes Problem Colon cancer screening (498732857) Colon cancer screening (Z12.11) Active confirmed Problem History of polyp of colon (situation) (024673399) Personal history of colonic polyps (Z86.010) Active confirmed Problem Long-term current use of antiplatelet drug (657124794611294) long-term (current) use of aspirin (Z79.82) Active confirmed Vital Signs Blood pressure systolic 00 mm Hg 07/12/20 24 Blood pressure diastolic 00 mm Hg 024 Height 72.5 in 07/12/2024 Weight 255 lbs 07/12/2024 BMI 34.11 kg/m2 07/12/2024 Encounters Encounter Location Date Provider Diagnosis [facility] [address] [place] [address] 07/12/2024 Zachery Bustillos Colon cancer screening Z12.11 ; buttermaker (current) use of aspirin Z79.82 and Personal [...] keep you advised of his progress. 07/12/2024 long-term (current) use of aspirin (ICD-10 - Z79.82) [...] * AVINASH MONROE JDOB:1955 (68 yo M)Acc No.[id number]:07/12/2024 Progress Notes Patient:?AVINASH MONROE Provider:?Zachery Bustillos MD :1955???Age:68 Y???Sex:Male Hipolito e:07/12/2024 Address:[address] [place], [place] [phone] Pcp:Daniel Shoemaker MD Subjective: * Chief Complaints: [...] Screen?Points: 2, Interpretation: Negative.?Miscellaneous:?Marital status: . 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 Assessment: * Assessment: 1.?buttermaker (current) use o f aspirin - Z79.82 [...] Procedure Codes:?3017F COLOR ECTAL CA SCREEN DOC QDG4282V TOBACCO NON-WBKEV4612 BP SCR NOT PRFRM REC REASON NOS [...] MD Date:? 024 Generated for Inna saldaña/Garfield/eTransmitting on:?12/20/2024 11:22 AM EDT History and Physical Notes * HPI [...]
--- OUTSIDE RECORDS SUMMARY | 2024-12-20 11:22 | XMS_ITS ---
Author Organization Daniel Shoemaker MD Address [address] [place], [place] [phone] Care Team Providers Care Supervisor Instant Potato Processing Name Role Phone Daniel Shoemaker Primary Care Provider Results Component Value Reference Range Notes Liver Panel Reviewed date:12/16/2024 05:16:25 PM Interpretation: Performing Lab:[address] [address] Notes/Report: Bilirubin Total 0.7 0.0-1.0 mg/dL Bilirubin Direct 0.2 0.0-0.5 mg/dL Aspartate Amino Transferase 33 5-37 U/L Alanine Aminotransferase 34 0-40 U/L Total Protein 7.5 6.5-8.0 g/dL Albumin Level 4.4 3.5-5.0 g/dL Alkaline Phosphatase 79 39-117 U/L Glucose Fasting Reviewed date:12/16/2024 05:16:16 PM Interpretation: Performing Lab:[address] [phone] Notes/Report: Glucose Fasting 116 60-99 mg/dL A fasting glucose from 100-125 mg/dl is considered impaired (pre-diabetes). Lipid Panel with Reflex Reviewed date:12/16/2024 05:17:29 PM Interpretation: Performing Lab:[address] [phone] Notes/Report: Triglycerides 70 <150 mg/dL Desirable Triglyceride: [...] A1c Reviewed date:12/16/2024 05:17:03 PM Interpretation: Performing Lab:[facility], [address] [place] [phone] Notes/Report: Hemoglobin A1c % 6.0 <6.0 % [...] average glucose, using the formula of the V6C-Jxxuwfi Average Glucose study (ADAG), Diabetes Care, Vol.31,#8, Mar. 2007 REASON FOR VISIT FASTING LIPIDS Encounters Encounter Location Date Provider Diagnosis Daniel Shoemaker MD [address] [place] [address] [place] [id number] 12/16/2024 Daniel Shoemaker Prediabetes R73.09 a nd Pure hypercholesterolemia E78.00 Assessments Encounter Date Diagnosis (ICD Code) Assessment Notes Treatment Notes Treatment Clinical Notes Section Notes 12/16/2024 Prediabetes (ICD-10 - R73.09) 12/16/2024 Pure hypercholesterolemia (ICD-10 - E78.00) Plan Of Treatment Next Appt Details Provider Name:Daniel ascencio, 12/24/2024 09:00:00 AM, [address] [place] [address], [address], [place], [place], [phone], Provider Name:Daniel ascencio, 06/24/2025 07:30:00 AM, [address] [place] [address], [address], [place], [phone], Provider Name:Daniel Eppersonrupal ier, 07/01/2025 08:30:00 AM, [address] [facility], [address], [place], [phone], Progress Notes * Alonso CASILLASDOB:1955 (69 yo M)Acc No.[id number]:12/16/2024 Progress Note Patient:?Alonso CASILLAS Provider:?Daniel Shoemaker MD :1955???Age:69 Y???Sex:Male Hipolito e:12/16/2024 Address: [address], [facility], [facility] Subjective: * Chief Complaints: * ???1. FASTING LIPIDS. * Medical History:? Objective: * Vitals:? Assessment: * Assessment: 1.?Prediabetes - R73.09 ([facility])???2.?Pure hypercholesterolemia - E78.00??? Plan: * Treatment: 2.?Pure hypercholesterolemia ?LAB: Liver Panel (Collection Date & Time - 12/16/2024 07:00 AM) ?LAB: Glucose Fasting (Collection Date & Time - 12/16/2024 07:00 AM) ?LAB: Lipid Panel with Reflex (Collection Date & Time - 12/16/2024 07:00 AM) ?LAB: Hemoglobin A1c (Collection Date & Time - 12/16/2024 07:00 AM) * Procedure Codes:?69279 VENIP UNCT, ROUTINE* * * The named appointment provid er may or may not be the originator of this progress note, and it is not deemed complete until electronically signed by the appointment provider. Sign off status: Pending * Provider:?Daniel Shoemaker MD Date:?0 12/16/2024 Generated for Printi ng/Faxing/eTransmitting on:?12/20/2024 11:21 AM EDT
== END 2024-12-20 10:51 | disposition home or self-care (01) ==
LOC: HO.XRAY 10:50
PROVIDERS: PCP Internal Medicine; Visit Provider Internal Medicine
DX: M48.00 Spinal stenosis, site unspecified (principal)
CPT/HCPCS: 72110

== ENCOUNTER → 2024-12-20 10:54 | Outpatient (BNV) | payer MEDICARE, SELFPAY | PROVIDERS: PCP Internal Medicine; Visit Provider Radiology Diagnostic Radiology | DX: M51.369 Other intervertebral disc degeneration, lumbar region without mention of lumbar back pain or lower extremity pain (principal) | CPT/HCPCS: 72110 ==

== ENCOUNTER 2025-06-24 07:30 | Outpatient (REF) | payer MEDICARE, SELFPAY ==
[2025-06-24 10:58] LABS: MANUAL DIFF FLAG NO
[2025-06-24 11:29] LABS: Appearance Urine Clear; Glucose Urine UA Negative (Negative); Hematocrit 44.1 % (42.0-52.0); Hemoglobin 14.2 g/dl (14.0-18.0); Imm Gran Abs Auto 0.03 X10*3/uL (0.00-0.03); Imm Gran Pct Auto 0.4 % (0.0-0.4); Lymphocytes Absolute Auto 1.6 X10*3/uL (1.2-4.9); Mean Corpuscular HGB Conc 32.2 g/dl (31.0-36.0); Mean Corpuscular Hemoglobin 28.3 pg (27.0-33.0); Mean Corpuscular Volume 87.8 fL (80.0-98.0); NRBC Abs Auto 0.000 X10*3/uL (0.0-0.012); NRBC Pct Auto 0.0 /100WBC (0.0-0.2); PH 6.5 (5.0-9.0); Platelet Count 228 X10*3/uL (160-400); Red Blood Count 5.02 X10*6/uL (4.60-5.80); Specific Gravity - Urine 1.015 (1.005-1.025); White Blood Count 7.0 X10*3/uL (4.8-10.8)
[2025-06-24 11:40] LABS: Alanine Aminotransferase 29 U/L (0-40); Albumin Level 4.3 g/dL (3.5-5.0); Alkaline Phosphatase 75 U/L (39-117); Anion Gap 12 (12-20); Aspartate Amino Transferase 34 U/L (5-37); Blood Urea Nitrogen 14 mg/dL (9-16); Calcium 9.5 mg/dL (8.4-10.2); Carbon Dioxide 27 mmol/L (22-29); Chloride 107 mmol/L (96-108); Cholesterol 156 mg/dL (<200); Estimated Glomerular Filt Rate > 60; HDL Cholesterol 46 mg/dL (>40); Potassium 4.3 mmol/L (3.3-5.1); Sodium 142 mmol/L (135-145); Total Protein 7.3 g/dL (6.5-8.0); Triglycerides 98 mg/dL (<150)
[2025-06-24 12:05] LABS: PSA,Total (Free>4and<10) 1.82 ng/mL (0.00-4.00)
== END 2025-06-24 07:31 | disposition home or self-care (01) ==
LOC: HO.LNP 07:30
PROVIDERS: Visit Provider Internal Medicine
DX: Z12.5 Encounter for screening for malignant neoplasm of prostate (principal); N40.0 Benign prostatic hyperplasia without lower urinary tract symptoms; E78.00 Pure hypercholesterolemia, unspecified; R73.09 Other abnormal glucose
CPT/HCPCS: 80053; 80061; 81001; 84153; 85025

== ENCOUNTER 2025-07-18 14:32 | Outpatient (REF) | payer MEDICARE, SELFPAY ==
--- OUTSIDE RECORDS SUMMARY | 2024-09-16 06:15 | XMS_ITS ---
Author Organization Daniel Shoemaker MD Address [address] [place] [phone] Care Team Providers Care Mass Spectrometry Manager Name Role Phone Daniel Shoemaker Primary Care Provider Allergies Allergen (clinical drug ingredient) Drug/Non Drug Allergy documented on EMR Reaction Allergy Type Onset Date Status simvastatin Simvastatin myalgia Drug Allergy Act laci REASON FOR VISIT follow up appt from [facility] [place] on 09-08-2024, has an apt with Urology on Monday, accompanied by Medications Medication SIG (Take, Route, Frequency, Duration) Notes Start Date End Date Status Vitamin D 50 MCG (1999) 1 capsule Ora lly Once a day for 30 day(s) Active Tamsulosin HCl 0.4 MG TAKE 1 CAPSULE BY MOUTH EVERY DAY Active Rosuvastatin Calcium 10 MG Take 1 tablet by mouth once daily Active Problems Problem Type SNOMED Code ICD Code Onset Dates Problem Status W/U Status Risk Notes Problem [id number] Asymptomatic cholelithiasis (K80.20) Active confirmed Vital Signs Blood pressure systolic 172 mm Hg 09/16/19 25 Blood pressure diastolic 84 mm Hg 025 Height 63.25 in 09/16/2024 Weight 256 lbs 09/16/2024 BMI 44.99 kg/m2 09/16/2024 Encounters Encounter Location Date Provider Diagnosis Daniel Shoemaker MD [address] [place] [phone] 09/16/2024 Daniel Shoemaker Gross hematuria R31. 0 ; Kidney lesion N28.9 and Asymptomatic cholelithiasis K80.20 Assessments Encounter Date Diagnosis (ICD Code) Assessment Notes Treatment Notes Treatment Clinical Notes Section Notes 09/16/2024 Gross hematuria (ICD-10 - R31.0) seeing urology 09/16/2024 Kidney lesion (ICD-10 - N28.9) getting mri 09/16/2024 Asymptomatic cholelithiasis (ICD-10 - K80.20) warned patient of the presence in case he has pain there Plan Of Treatment Treatment Notes Assessment Notes Gross hematuria seeing urology Kidney lesion getting mri Asymptomatic cholelithiasis warned patie nt of the presence in case he has pain there Next Appt Details Provider Name:Daniel staleyr, 12/30/2025 07:30:00 AM, [address] [place] [address], [address] [place] [address], [phone], Provider Name:Daniel staleyr, 01/02/2026 10:00:00 AM, [address] [place] [address], [address] [place] [address], [phone], Provider Name:Daniel staleyr, 07/06/2026 07:15:00 AM, [address] [place] [address], [address] [place] [address], [phone], Provider Name:Daniel Licona ier, 07/13/2026 10:30:00 AM, [address] [place] [address], [address] [place] [address], [phone], Progress Notes * Alonso CASILLASDOB:1955 (69 yo M)Acc No.[id number]:09/16/2024 Patient: Alonso WESTON Provider: Clay Shoemaker MD :1955 A ge:69 Y S ex:Male Date:09/16/2024 Address:[address], [place], [id number] Subjective: * Chief Complaints: * f ollow up appt from [facility] [place] visit on 09-08-2024has an apt with Urology on MondayAccompanied by * HPI: S ymptom(s): patient is a 69 yo male here for ER follow up visit, had blood in urine and passed clots. tomorrow is going to get scoped. and is getting mri. * ROS: G eneral/Constitutional: Denies C hills. D enies F atigue. D enies F ever. D enies H eadache. E NT: Patient denies d ecreased sense of smell, any loss of taste, sore throat. D enies S ore throat. R espiratory: Denies C ough. D enies S hortness of breath at rest. D enies S hortness of breath with exertion. G astrointestinal: Denies D iarrhea. D enies N ausea. G enitourinary: Denies A bdominal pain/swelling. D enies B lood in urine. D enies D ifficulty urinating. A dmits F requent urination. A dmits P ain in lower back. M usculoskeletal: Patient denies m uscle aches. P eripheral Vascular: Patient denies r ed and blue toes. * Medical History: * Surgical History: * Hospitalization/Major Diagno stic Procedure: * Medications: T akingVitamin D 50 MCG (1999) Capsule 1 capsule Orally Once a day Tamsulosin HCl 0.4 MG Capsule TAKE 1 CAPSULE BY MOUTH EVERY DAY Rosuvastatin Calcium 10 MG Tablet Take 1 tablet by mouth once daily Medication List reviewed and reconciled with the patientTaking Vitamin D 50 MCG (1999) Capsule 1 capsule Orally Once a day Taking Tamsulosin HCl 0.4 MG Capsule TAKE 1 CAPSULE BY MOUTH EVERY DAY Taking Rosuvastatin Calcium 10 MG Tablet Take 1 tablet by mouth once daily Medication List reviewed and reconciled with the patient * Allergies: S imvastatin: myalgiayes[Allergies Verified] Objective: * Vitals: H t: 63.25, Wt: 256, BMI:44.99, BP:172/84, Repeat BP:140/82, Wt-k.12. * Examination: G eneral Examination: GENERAL APPEARANCE: a lert, well hydrated, in no distress.? HEAD: n ormocephalic. SKIN: g ood turgor. HEART: r egular rate and rhythm, no murmurs, rubs, gallops.? LUNGS: n o wheezes, rales, rhonchi, good air movement, clear to auscultation bilaterally. ABDOMEN: s oft, nontender, nondistended, no organomegaly.? BACK: n o costovertebral angle tenderness. Assessment: * Assessment: 1. Clay bermudez hematuria - R31.0 (Primary) 2 . K idney lesion - N28.9 3 . A symptomatic cholelithiasis - K80.20 Plan: * Treatment: 2. K idney lesion Notes: getting mri 3. A symptomatic cholelithiasis Notes: warned patient of the presence in case he has pain there * Procedure Codes: * * Sign off status: Completed true * Provider: Clay Shoemaker MD Date: 0 09/16/2024 Generated for Inna saldaña/Garfield/Nikole on: 09/18/2024 07:48 PM EST History and Physical Notes * HPI (History of Present Illness) Category Sub-Category Detail Notes Category Not es Symptom(s) patient is a 69 yo male here for ER follow up visit, had blood in urine and passed clots. tomorrow is going to get scoped. and is getting mri Examination Category Sub-Category Detail Notes Category Not es General Examination GENERAL APPEARANCE: alert, w ell hydrated, in no distress HEAD: normocephalic HEART: regular rate and rhy thm, no murmurs, rubs, gallops LUNGS: no wheezes, rales, r honchi, good air movement, clear to auscultation bilaterally ABDOMEN: soft, nontender, non distended, no organomegaly SKIN: good turgor BACK: no costovertebral an gle tenderness
--- OUTSIDE RECORDS SUMMARY | 2024-09-17 04:10 | XMS_ITS ---
Author Organization Daniel Shoemaker MD Address [address] [place] [address] [phone] Care Team Providers Care Director Phone Name Role Phone Daniel Shoemaker Primary Care Provider REASON FOR VISIT RF Rosuvastatin Medications Medication SIG (Take, Route, Frequency, Duration) Notes Start Date End Date Status Rosuvastatin Calcium 10 MG Take 1 tablet by mouth once daily Orally Once a day for 90 days Active Encounters Encounter Location Date Provider Diagnosis Daniel Shoemaker MD [address] [place] [address] [place] [address] [phone] 09/17/2024 Daniel Shoemaker Pure hypercholestero lemia E78.00 Assessments Encounter Date Diagnosis (ICD Code) Assessment Notes Treatment Notes Treatment Clinical Notes Section Notes 09/17/2024 Pure hypercholesterolemia (ICD-10 - E78.00) Plan Of Treatment Medication Medication Name Sig Start Date Stop Date Notes Rosuvastatin Calcium 10 MG Take 1 tablet by mouth once daily Orally Once a day for 90 days Next Appt Details Provider Name:Daniel ascencio, 12/30/2025 07:30:00 AM, [address] [place] [address], [address], [phone], Provider Name:Daniel ascencio, 01/02/2026 10:00:00 AM, [address] [place] [address], [address], [phone], Provider Name:Daniel ascencio, 07/06/2026 07:15:00 AM, [address] [place] [address], [phone], Provider Name:Daniel Licona ier, 07/13/2026 10:30:00 AM, [address], [address], [place], [place], [phone], Progress Notes * Alonso CASILLASDOB:1955 (69 yo M)Acc No.[id number]:09/17/2024 Patient: Alonso WESTON :1955 A ge:69 Y S ex:Male Address: [address], [place] [address] * Refills Refill Rosuvastatin Calcium Tablet, 10 MG, Orally, 90, Take 1 tablet by mouth once daily, Once a day, 90 days, Refills=3 * true * Date: Generated for Inna saldaña/Garfield/Lalitaitting on: 1 09/18/2024 07:47 PM EST
--- OUTSIDE RECORDS SUMMARY | 2024-11-06 03:40 | XMS_ITS ---
Author Organization [facility] Address [address] [place] [address] Care Team Providers Care Bobcat Operator Name Role Phone Navid MYAES, Daniel Primary Care Provider Zachery Seo [phone] REASON FOR VISIT screening,hx polyps Encounters Encounter Location Date Provider Diagnosis [facility] [address] [place] [phone] 11/06/2024 Zachery Bustillos Colon cancer scree tereza Z12.11 ; Personal history of colonic polyps Z86.0100 ; Colon polyps K63.5 and Other hemorrhoids K64.8 Assessments Encounter Date Diagnosis (ICD Code) Assessment Notes Treatment Notes Treatment Clinical Notes Section Notes 11/06/2024 Colon cancer screening (ICD-10 - Z12.11) 11/06/2024 Personal history of colonic polyps (ICD-10 - Z86.0100) 11/06/2024 Colon polyps (ICD-10 - K63.5) 11/06/2024 Other hemorrhoids (ICD-10 - K64.8) Plan Of Treatment No Information Progress Notes * AVINASH MONROEDOB:1955 (69 yo M)Acc No.[id number]:11/06/2024 COLON WITH MAC Patient: AVINASH WESTON Provider: Rosanna Bustillos MD :1955 A ge:69 Y S ex:Male Date:11/06/2024 Address:[address] [place], [place] [id number] Pcp:Daniel Shoemaker MD Subjective: * Chief Complaints: * S creening,hx polyps Assessment: * Assessment: 1. C olon cancer screening - Z12.11 (Primary) 2 . P ersonal history of colonic polyps - Z86.0100 3 . C olon polyps - K63.5 4 . O ther hemorrhoids - K64.8 Plan: * Procedure Codes: 4 5380 COLONOSCOPY AND BIOPSY, Modifiers: PT 0529F INTRVL 3+YRS PTS CLNSCP [id number] RCMND FLW-UP 10 YRS DOCD Billing Information: * Procedure Codes: 01046 COLONOSCOPY AND BIOPSY. Modifiers: PT 0529F INTRVL 3+YRS PTS CLNSCP DOCD. 0528F RCMND FLW-UP 10 YRS DOCD. * The named appointment provid er may or may not be the originator of this progress note, and it is not deemed complete until electronically signed by the appointment provider. Sign off status: Pending * Provider: Rosanna Bustillos MD Date: 0 11/06/2024 Generated for Inna saldaña/Garfield/Lalitaitting on: 1 09/18/2024 07:47 PM EST
--- OUTSIDE RECORDS SUMMARY | 2024-12-16 02:00 | XMS_ITS ---
Author Organization Daniel Shoemaker MD Address [address] [place], [place] [id number] Care Team Providers Care Band Machine Operator Name Role Phone Daniel Shoemaker Primary Care Provider Results Component Value Reference Range Notes Liver Panel Reviewed date:12/16/2024 05:16:25 PM Interpretation: Performing Lab:[address] [id number] Notes/Report: Bilirubin Total 0.7 0.0-1.0 mg/dL Bilirubin Direct 0.2 0.0-0.5 mg/dL Aspartate Amino Transferase 33 5-37 U/L Alanine Aminotransferase 34 0-40 U/L Total Protein 7.5 6.5-8.0 g/dL Albumin Level 4.4 3.5-5.0 g/dL Alkaline Phosphatase 79 39-117 U/L Glucose Fasting Reviewed date:12/16/2024 05:16:16 PM Interpretation: Performing Lab:[address] [phone] Notes/Report: Glucose Fasting 116 60-99 mg/dL A fasting glucose from 100-125 mg/dl is considered impaired (pre-diabetes). Lipid Panel with Reflex Reviewed date:12/16/2024 05:17:29 PM Interpretation: Performing Lab:[address] [id number] Notes/Report: Triglycerides 70 <150 mg/dL Desirable Triglyceride: less than 150 mg/dL Borderline High Triglyceride 150-199 mg/dL High Triglyceride: 200-499 mg/dL Very High Triglyceride: greater than or equal to 5OO mg/dL Cholesterol 149 <200 mg/dL Desirable Cholesterol: less than 200 mg/dL Borderline High Cholesterol: 200-239 mg/dL High Cholesterol: greater than 239 mg/dL LDL Cholesterol Calculated 83 <100 mg/dL Desirable LDL: less than 100 mg/dL Near Optimal/Above Optimal LDL: 110-129 mg/dL Borderline High LDL: 130-159 mg/dL High LDL: 160-189 mg/dL Very High LDL: greater than or equal to 190 mg/dL HDL Cholesterol 52 >40 mg/dL Desirable HDL: greater than 40 mg/dL Note: This HDL assay may give artificially low results in patients with liver disease. Hemoglobin A1c Reviewed date:12/16/2024 05:17:03 PM Interpretation: Performing Lab:[facility], [address] [place] [id number] Notes/Report: Hemoglobin A1c % 6.0 <6.0 % Hemoglobin A1C Reference Range Adults: 4.8 - 6.0 % Non diabetic: < 6.0 % Goal: < 7.0 % Additional Action Suggested: > 8.0 % Note: Hemoglobin A1c results are invalid for patients with abnormal amounts of HbF. Blood transfusions may impact the HbA1c concentration in the patient sample. Estimated Average Glucose 126 eAG = Estimated average glucose which is %A1C expressed as average glucose, using the formula of the L5D-Nzsydss Average Glucose study (ADAG), Diabetes Care, Vol.31,#8, Mar. 2007 REASON FOR VISIT FASTING LIPIDS Encounters Encounter Location Date Provider Diagnosis Daniel Shoemaker MD [address] [place] [address] [place] [phone] 12/16/2024 Daniel Shoemaker Prediabetes R73.09 a nd Pure hypercholesterolemia E78.00 Assessments Encounter Date Diagnosis (ICD Code) Assessment Notes Treatment Notes Treatment Clinical Notes Section Notes 12/16/2024 Prediabetes (ICD-10 - R73.09) 12/16/2024 Pure hypercholesterolemia (ICD-10 - E78.00) Plan Of Treatment Next Appt Details Provider Name:Daniel ascencio, 12/30/2025 07:30:00 AM, [address] [place] [address], [address], [place], [place], [phone], Provider Name:Daniel ascencio, 01/02/2026 10:00:00 AM, [address] [place] [address], [address], [place], [place], [phone], Provider Name:Daniel Licona ier, 07/06/2026 07:15:00 AM, [address] [facility], [address], [place], [place], [phone], Provider Name:Daniel Licona ier, 07/13/2026 10:30:00 AM, [address] [facility] [address], [address], [place], [place], [phone], Progress Notes * Alonso CASILLASDOB:1955 (69 yo M)Acc No.[id number]:12/16/2024 Progress Note Patient: Alonso WESTON Provider: Clay Shoemaker MD :1955 A ge:69 Y S ex:Male Date:12/16/2024 [facility] Subjective: * Chief Complaints: * 1 . FASTING LIPIDS. * Medical History: Objective: * Vitals: Assessment: * Assessment: 1. P rediabetes - R73.09 (Primary) 2 . P ure hypercholesterolemia - E78.00? Plan: * Treatment: 2. P ure hypercholesterolemia L AB: Liver Panel (Collection Date & Time - 12/16/2024 07:00 AM) L AB: Glucose Fasting (Collection Date & Time - 12/16/2024 07:00 AM) L AB: Lipid Panel with Reflex (Collection Date & Time - 12/16/2024 07:00 AM) L AB: Hemoglobin A1c (Collection Date & Time - 12/16/2024 07:00 AM) * Procedure Codes: 3 6415 VENIPUNCT, ROUTINE* * * The named appointment provid er may or may not be the originator of this progress note, and it is not deemed complete until electronically signed by the appointment provider. Sign off status: Pending * Provider: Clay Shoemaker MD Date: 0 12/16/2024 Generated for Printi ng/Faxing/eTransmitting on: 1 09/18/2024 07:48 PM EST
--- OUTSIDE RECORDS SUMMARY | 2024-12-20 03:19 | XMS_ITS ---
Author Organization Daniel Shoemaker MD Address [address] [place] [phone] Care Team Providers Care Product Applications Engineer Name Role Phone Daniel Shoemaker Primary Care Provider REASON FOR VISIT Views lumbar spine Encounters Encounter Location Date Provider Diagnosis Daniel Shoemaker MD [address] [place] [address] [place] [phone] 12/20/2024 Daniel Shoemaker Spinal stenosis M48.00 Assessments Encounter Date Diagnosis (ICD Code) Assessment Notes Treatment Notes Treatment Clinical Notes Section Notes 12/20/2024 Spinal stenosis (ICD-10 - M48.00) Plan Of Treatment Pending Test Test Name Order Date XR LUMBAR SPINE 4+ VIEWS 12/20/2024 Next Appt Details Provider Name:Daniel ascencio, 12/30/2025 07:30:00 AM, [address] [place] [address], [address], [phone], Provider Name:Daniel ascencio, 01/02/2026 10:00:00 AM, [address] [place] [address], [address], [phone], Provider Name:Daniel ascencio, 07/06/2026 07:15:00 AM, [address] [place] [address], [phone], Provider Name:Daniel ascencio, 07/13/2026 10:30:00 AM, [address] [place] [address], [phone], Progress Notes * Alonso CASILLAS JDOB:1955 (69 yo M)Acc No.[id number]:12/20/2024 Patient: Alonso WESTON :1955 A ge:69 Y S ex:Male Address:[address] [place] [address] Subjective: * Chief Complaints: * V iews lumbar spine * Medical History: * Surgical History: * Hospitalization/Major Diagno stic Procedure: * Medications: Objective: * Vitals: * Physical Examination: Assessment: * Assessment: 1. S harry stenosis - M48.00 Plan: * Treatment: * Procedure Codes: * true * Date: Generated for Inna saldaña/Garfield/Nikole on: 09/18/2024 07:47 PM EST
--- OUTSIDE RECORDS SUMMARY | 2024-12-24 04:00 | XMS_ITS ---
Author Organization Daniel Shoemaker MD Address [address] [place], [place] [phone] Care Team Providers Care Magnetic Tape Winder Name Role Phone Daniel Shoemaker Primary Care Provider [phone] Allergies Allergen (clinical drug ingredient) Drug/Non Drug Allergy documented on EMR Reaction Allergy Type Onset Date Status simvastatin Simvastatin myalgia Drug Allergy Act laci Reason For Referral Reason anterolisthesis Diagnosis 1 Anterolisthesis (M43 .10) Referral Organization Daniel Shoemaker MD Referring Provider First Name Daniel Referring Provider Last Name Navid Referring Provider Speciality Internal M edicine Referred Provider Zachery Flores Referred Provider Specialty Orthopedic S urgery General Notes Susan Rodriguez 0 12/24/2024 09:39:40 AM >info faxedMichael Annette 01/10/2025 03:11:24 PM >patient is aware of appt Referral Priority Routine Referral Appointment Date 02/20/2025 REASON FOR VISIT 6 MO F/U Medications Medication SIG (Take, Route, Frequency, Duration) Notes Start Date End Date Status Vitamin D 50 MCG (1999) 1 capsule Ora lly Once a day for 30 day(s) Active Tamsulosin HCl 0.4 MG TAKE 1 CAPSULE BY MOUTH EVERY DAY Active Rosuvastatin Calcium 10 MG Take 1 tablet by mouth once daily Orally Once a day for 90 days Active Problems Problem Type SNOMED Code ICD Code Onset Dates Problem Status W/U Status Risk Notes Problem Acquired spondylolisthesis (185675324) Anterolisthesis (M43.10) Active confirmed Vital Signs Blood pressure systolic 170 mm Hg 12/25/19 25 Blood pressure diastolic 80 mm Hg 05/20/2 025 Height 63.25 in 12/24/2024 Weight 252 lbs 12/24/2024 BMI 44.28 kg/m2 12/24/2024 weight is down 4 pounds [facility] 09-16-24 Encounters Encounter Location Date Provider Diagnosis Daniel Shoemaker MD [address] [place] [address] [place] [phone] 12/24/2024 Daniel Shoemaker Spinal stenosis M48. 00 ; Anterolisthesis M43.10 and Hematuria R31.9 Assessments Encounter Date Diagnosis (ICD Code) Assessment Notes Treatment Notes Treatment Clinical Notes Section Notes 12/24/2024 Spinal stenosis (ICD-10 - M48.00) 12/24/2024 Anterolisthesis (ICD-10 - M43.10) referral to dr phan at [facility]. he is going to see him tomorrow with his 12/24/2024 Hematuria (ICD-10 - R31.9) has been evaluated by urology Plan Of Treatment Treatment Notes Assessment Notes Anterolisthesis referral to dr phan at [facility]. he is going to see him tomorrow with his Hematuria has been evaluated b y urology Referrals Referral Date Details 12/24/2024 12/24/2024, Zachery solorzano Next Appt Details Provider Name:Daniel ascencio, 12/30/2025 07:30:00 AM, [address] [place] [address], [address] [place] [address], [phone], Provider Name:Daniel ascencio, 01/02/2026 10:00:00 AM, [address] [place] [address], [address] [place] [address], [phone], Provider Name:Daniel ascencio, 07/06/2026 07:15:00 AM, [address] [place] [address], [address] [place] [address], [phone], Provider Name:Daniel ascencio, 07/13/2026 10:30:00 AM, [address] [place] [address], [address] [place] [address], [phone], Progress Notes * Alonso CASILLAS:1955 (69 yo M)Acc No.[id number]:12/24/2024 Progress Notes Patient: Alonso WESTON Provider: Clay Shoemaker MD :1955 A ge:69 Y S ex:Male Date:12/24/2024 Address: [address], [place], [facility] Subjective: * Chief Complaints: * 6 MO F/U * HPI: S ymptom(s): patient is a 69 yo male here for 6 month follow up visit/ has been seeing urology for hematuria. * ROS: G eneral/Constitutional: Denies C hills. D enies F atigue. D enies F ever. D enies H eadache. E NT: Denies S ore throat. R espiratory: Denies C ough. D enies S hortness of breath at rest. D enies S hortness of breath with exertion. C ardiovascular: Denies C hest pain at rest. D enies C hest pain with exertion. D enies D izziness. D enies P alpitations. D enies S hortness of breath. G astrointestinal: Denies D iarrhea. D enies N ausea. * Medical History: * Surgical History: * Hospitalization/Major Diagno stic Procedure: * Medications: T akingVitamin D 50 MCG (1999) Capsule 1 capsule Orally Once a day Tamsulosin HCl 0.4 MG Capsule TAKE 1 CAPSULE BY MOUTH EVERY DAY Rosuvastatin Calcium 10 MG Tablet Take 1 tablet by mouth once daily Orally Once a day Medication List reviewed and reconciled with the patientTaking Vitamin D 50 MCG (1999) Capsule 1 capsule Orally Once a day Taking Tamsulosin HCl 0.4 MG Capsule TAKE 1 CAPSULE BY MOUTH EVERY DAY Taking Rosuvastatin Calcium 10 MG Tablet Take 1 tablet by mouth once daily Orally Once a day Medication List reviewed and reconciled with the patient * Allergies: S imvastatin: myalgiayes[Allergies Verified] Objective: * Vitals: H t: 63.25, Wt: 252, BMI:44.28, BP:170/80, Repeat BP:110/70, Wt-k.31. weight is down 4 pounds since 09-16-24. * Examination: G eneral Examination: GENERAL APPEARANCE: w ell developed, well nourished. HEAD: n ormocephalic. SKIN: g ood turgor. HEART: n o murmurs, rubs, gallops, regular rate and rhythm.? LUNGS: n o wheezes, rales, rhonchi, good air movement. Assessment: * Assessment: 1. S harry stenosis - M48.00 (Primary) 2 . A nterolisthesis - M43.10 ? 3 . H ematuria - R31.9 Plan: * Treatment: 2. H ematuria Notes: has been evaluated by urology * Procedure Codes: * * Sign off status: Completed true * Provider: Clay Shoemaker MD Date: 0 12/24/2024 Generated for Jarredi piotr/Garfield/eTransmitting on: 1 09/18/2024 07:48 PM EST History and Physical Notes * HPI (History of Present Illness) Category Sub-Category Detail Notes Category Not es Symptom(s) patient is a 69 yo male here for 6 month follow up visit/ has been seeing urology for hematuria Examination Category Sub-Category Detail Notes Category Not es General Examination GENERAL APPEARANCE: well developed , well nourished HEAD: normocephalic HEART: no murmurs, rubs, ga llops, regular rate and rhythm LUNGS: no wheezes, rales, r honchi, good air movement SKIN: good turgor Consultation Request Notes Referral Date Referring Provider Referred Provider Not kavon 12/24/2024 Daniel Shoemaker Robert anterolist hesis
--- OUTSIDE RECORDS SUMMARY | 2025-03-12 06:45 | XMS_ITS ---
Author Organization Daniel Shoemaker MD Address [address] [place] [phone] Care Team Providers Care Supervisor Shop Name Role Phone Daniel Shoemaker Primary Care Provider REASON FOR VISIT HCC Risk Codes Encounters Encounter Location Date Provider Diagnosis Daniel Shoemaker MD [address] [facility] [address] [place] [phone] 03/12/2025 Daniel Shoemaker Plan Of Treatment Next Appt Details Provider Name:Daniel ascencio, 12/30/2025 07:30:00 AM, [address] [place] [address], [address], [phone], Provider Name:Daniel ascencio, 01/02/2026 10:00:00 AM, [address] [place] [address], [address], [phone], Provider Name:Daniel ascencio, 07/06/2026 07:15:00 AM, [address] [place] [address], [address], [phone], Provider Name:Daniel ascencio, 07/13/2026 10:30:00 AM, [address] [place] [address], [address], [phone], Progress Notes * Alonso CASILLASDOB:1955 (69 yo M)Acc No.[id number]:03/12/2025 Patient: Alonso WESTON :1955 A ge:69 Y S ex:Male Address: [address], [place] [address] * true * Date: Generated for Inna saldaña/Garfield/Nikole on: 09/18/2024 07:46 PM EST
--- OUTSIDE RECORDS SUMMARY | 2025-05-01 09:41 | XMS_ITS ---
Author Organization Daniel Shoemaker MD Address [address] [place] [phone] Care Team Providers Care General Engineering Teacher Name Role Phone Daniel Shoemaker Primary Care Provider REASON FOR VISIT US Kidneys due Encounters Encounter Location Date Provider Diagnosis Daniel Shoemaker MD [address] [place] [address] [place] [phone] 05/01/2025 Daniel Shoemaker Pyelonephritis N12 Assessments Encounter Date Diagnosis (ICD Code) Assessment Notes Treatment Notes Treatment Clinical Notes Section Notes 05/01/2025 Pyelonephritis (ICD-10 - N12) Order made and printed and put into the furture folder for Plan Of Treatment Treatment Notes Assessment Notes Pyelonephritis Order made and print ed and put into the furture folder for Pending Test Test Name Order Date US renal BI 05/01/2025 Next Appt Details Provider Name:Daniel ascencio, 12/30/2025 07:30:00 AM, [address] [place] [address], [address], [phone], Provider Name:Daniel ascencio, 01/02/2026 10:00:00 AM, [address] [place] [address], [phone], Provider Name:Daniel ascencio, 07/06/2026 07:15:00 AM, [address] [place] [address], [phone], Provider Name:Daniel ascencio, 07/13/2026 10:30:00 AM, [address], [address], [place], [place], [phone], Progress Notes * Alonso CASILLASDOB:1955 (69 yo M)Acc No.[id number]:05/01/2025 Patient: Alonso WESTON :1955 A ge:69 Y S ex:Male [facility] [place] [address] Subjective: * Chief Complaints: * U S Kidneys due * Medical History: * Surgical History: * Hospitalization/Major Diagno stic Procedure: * Medications: Objective: * Vitals: * Physical Examination: Assessment: * Assessment: 1. P yelonephritis - N12 Plan: * Treatment: * Procedure Codes: * true * Date: Generated for Inna saldaña/Garfield/Lalitaitting on: 09/18/2024 07:49 PM EST
--- OUTSIDE RECORDS SUMMARY | 2025-05-09 03:45 | XMS_ITS ---
Author Organization Daniel Shoemaker MD Address [address] [facility] [address] [place] [phone] Care Team Providers Care Conductor Pullman Name Role Phone Daniel Shoemaker Primary Care Provider [phone] REASON FOR VISIT HD flu Immunizations Vaccine Route Administration Date Status Comme nts Influenza High Dose IM Intramuscular 05/09/2025 Administer ed Encounters Encounter Location Date Provider Diagnosis Daniel Shoemaker MD [address] [place] [address] [place] [phone] 05/09/2025 Daniel Shoemaker Encounter for administration of vaccine Z23 Assessments Encounter Date Diagnosis (ICD Code) Assessment Notes Treatment Notes Treatment Clinical Notes Section Notes 05/09/2025 Encounter for administration of vaccine (ICD-10 - Z23) Plan Of Treatment Next Appt Details Provider Name:Daniel acsencio, 12/30/2025 07:30:00 AM, [address] [place] [address], [address], [phone], Provider Name:Daniel ascencio, 01/02/2026 10:00:00 AM, [address] [place] [address], [address], [phone], Provider Name:Daniel ascencio, 07/06/2026 07:15:00 AM, [address] [place] [address], [address], [phone], Provider Name:Daniel ascencio, 07/13/2026 10:30:00 AM, [address] [place] [address], [address], [phone], Progress Notes * Alonso CASILLASDOB:1955 (69 yo M)Acc No.[id number]:05/09/2025 Progress Note Patient: Alonso WESTON Provider: Clay Shoemaker MD :1955 A ge:69 Y S ex:Male Date:05/09/2025 Address:[address] [place] [address] [facility] [place] [facility] Subjective: * Chief Complaints: * 1 . HD flu. * Medical History: Objective: * Vitals: Assessment: * Assessment: 1. E ncounter for administration of vaccine - Z23 (Primary) Plan: * Treatment: * Immunizations: Influenza High Dose : 0.5 mL (Dose No:1) (Route: Intramuscular) given by Kassy Chu , Office Staff on Left Deltoid * Procedure Codes: 9 0662 FLU VACC PRSV FREE INC ANTIG, G0008 ADMN FLU VAC NO FEE SCHED SAME DAY * * The named appointment provid er may or may not be the originator of this progress note, and it is not deemed complete until electronically signed by the appointment provider. Sign off status: Pending * Provider: Clay Shoemaker MD Date: 1 Generated for Inna saldaña/Garfield/Nikole on: 09/18/2024 07:48 PM EST
--- OUTSIDE RECORDS SUMMARY | 2025-06-24 02:30 | XMS_ITS ---
Author Organization Daniel Shoemaker MD Address [address] [place], [place] [phone] Care Team Providers Care Refrigeration Service Technician Name Role Phone Daniel Shoemaker Primary Care Provider Results Component Value Reference Range Notes Complete Blood Count Auto Di ff Reviewed date:06/24/2025 04:18:49 PM Interpretation: Performing Lab:[facility], [address] [place] [phone] Notes/Report: White Blood Count 7.0 4.8-10.8 X10*3/uL Red Blood Count 5.02 4.60-5.80 X10*6/uL Hemoglobin 14.2 14.0-18.0 g/dl Hematocrit 44.1 42.0-52.0 % Mean Corpuscular Volume 87.8 80.0-98.0 fL Mean Corpuscular Hemoglobin 28.3 27.0-33.0 pg Mean Corpuscular HGB Conc 32.2 31.0-36.0 g/dl Red Cell Distribution Width 14.0 11.0-16.0 % Platelet Count 228 160-400 X10*3/uL Mean Platelet Volume 10.4 9.4-12.4 fL Neutrophils Percent Auto 57.7 45-73 % Imm Gran Pct Auto 0.4 0.0-0.4 % Lymphocytes Percent Auto 22.7 20-40 % Monocytes Percent Auto 9.9 2-11 % Eosinophils Percent Auto 8.7 0-4 % Basophils Percent Auto 0.6 0-2 % NRBC Pct Auto 0.0 0.0-0.2 /100WBC Neutrophils Absolute Auto 4.1 2.0-8.3 x10*3/u L Imm Gran Abs Auto 0.03 0.00-0.03 X10*3/uL Lymphocytes Absolute Auto 1.6 1.2-4.9 X10*3/u L Monocytes Absolute Auto 0.7 0.1-1.2 X10*3/uL Eosinophils Absolute Auto 0.6 0.0-0.4 X10*3/u L Basophils Absolute Auto 0.0 0.0-0.2 X10*3/uL NRBC Abs Auto 0.000 0.0-0.012 X10*3/uL Comprehensive [place]. Panel Fa st Reviewed date:06/24/2025 04:20:37 PM Interpretation: Performing Lab:[facility], [address] [place] [phone] Notes/Report: Sodium 142 135-145 mmol/L Potassium 4.3 3.3-5.1 mmol/L Chloride 107 96-108 mmol/L Carbon Dioxide 27 22-29 mmol/L Anion Gap 12 12-20 Blood Urea Nitrogen 14 9-16 mg/dL Creatinine 0.80 0.5-1.4 mg/dL Estimated Glomerular Filt Rate > 60 Chronic Kidney Disease: Estimated GFR < 60 mL/min/1.73m2 Severe Kidney Disease: Estimated GFR < 15 mL/min/1.73m2 Glucose Fasting 115 60-99 mg/dL A fasting glucose from 100-125 mg/dl is considered impaired (pre-diabetes). Calcium 9.5 8.4-10.2 mg/dL Bilirubin Total 0.9 0.0-1.0 mg/dL Aspartate Amino Transferase 34 5-37 U/L Alanine Aminotransferase 29 0-40 U/L Total Protein 7.3 6.5-8.0 g/dL Albumin Level 4.3 3.5-5.0 g/dL Alkaline Phosphatase 75 39-117 U/L Lipid Panel Reviewed date:06/24/2025 12:52:20 PM Interpretation: Performing Lab:[facility], [address] [place] [phone] Notes/Report: Triglycerides 98 <150 mg/dL Desirable Triglyceride: less than 150 mg/dL Borderline High Triglyceride 150-199 mg/dL High Triglyceride: 200-499 mg/dL Very High Triglyceride: greater than or equal to 5OO mg/dL Cholesterol 156 <200 mg/dL Desirable Cholesterol: less than 200 mg/dL Borderline High Cholesterol: 200-239 mg/dL High Cholesterol: greater than 239 mg/dL LDL Cholesterol Calculated 91 <100 mg/dL Desirable LDL: less than 100 mg/dL Near Optimal/Above Optimal LDL: 110-129 mg/dL Borderline High LDL: 130-159 mg/dL High LDL: 160-189 mg/dL Very High LDL: greater than or equal to 190 mg/dL HDL Cholesterol 46 >40 mg/dL Desirable HDL: greater than 40 mg/dL Note: This HDL assay may give artificially low results in patients with liver disease. PSA,Total (Free>4and<10) Reviewed date:07/01/2025 11:49:52 AM Interpretation:07-01-2025 Performing Lab:[address] [phone] Notes/Report: PSA,Total (Free>4and<10) 1.82 0.00-4.00 ng/mL A Free PSA was not [...] (CMIA) UA ClnCatch+Micro w/rflx Cul t Reviewed date:06/24/2025 04:20:00 PM Interpretation: Performing Lab:[address] [phone] Notes/Report: Urine, Clean Catch Color Urine Yellow Appearance Urine Clear PH 6.5 5.0-9.0 Glucose Urine UA Negative Negative mg/dL Urine Blood Negative Negative Specific Howe - Urine 1.015 1.005-1.025 Urine Protein Trace Neg-Trace mg/dL Urine Ketones Negative Negative mg/dL Nitrite Urine Negative Negative Leukocyte Esterase Urine Negative Negative RBC Urine 0-2 0-2 /HPF WBC Urine 0-5 0-5 /HPF Squamous Epithelial Cell Urine 0-2 0-2 /HPF Bacteria Urine None Seen None Seen Hyaline Casts Urine 0-2 0-2 /LPF REASON FOR VISIT FASTING LABS Encounters Encounter Location Date Provider Diagnosis Daniel Shoemaker MD [address] [place] [phone] 06/24/2025 Daniel Shoemaker Prediabetes R73.09 ; Pure hypercholesterolemia E78.00 and Prostatism N40.0 Assessments Encounter Date Diagnosis (ICD Code) Assessment Notes Treatment Notes Treatment Clinical Notes Section Notes 06/24/2025 Prediabetes (ICD-10 - R73.09) 06/24/2025 Pure hypercholesterolemia (ICD-10 - E78.00) 06/24/2025 Prostatism (ICD-10 - N40.0) Plan Of Treatment Next Appt Details Provider Name:Daniel ascencio, 12/30/2025 07:30:00 AM, [address] [place] [address], [phone], Provider Name:Daniel ascencio, 01/02/2026 10:00:00 AM, [address] [place] [address], [phone], Provider Name:Daniel ascencio, 07/06/2026 07:15:00 AM, [address] [place] [address], [phone], Provider Name:Daniel ascencio, 07/13/2026 10:30:00 AM, [address] [place] [address], [phone], Progress Notes * Alonso CASILLASDOB:1955 (69 yo M)Acc No.[id number]:06/24/2025 Progress Note Patient: Alonso WESTON Provider: Clay Shoemaker MD :1955 A ge:69 Y S ex:Male Date:06/24/2025 Address: [address] [facility], [facility] Subjective: * Chief Complaints: * 1 . FASTING LABS. * Medical History: Objective: * Vitals: Assessment: * Assessment: 1. P rediabetes - R73.09 (Primary) 2 . P ure hypercholesterolemia - E78.00? 3. P rostatism - N40.0 Plan: * Treatment: 2. P ure hypercholesterolemia L AB: Complete Blood Count Auto Diff (Collection Date & Time - 06/24/2025 07:30 AM) L AB: Comprehensive [place]. Panel Fast (Collection Date & Time - 06/24/2025 07:30 AM) L AB: Lipid Panel (Collection Date & Time - 06/24/2025 07:30 AM) L AB: PSA,Total (Free>4and<10) (Collection Date & Time - 06/24/2025 07:30 AM) L AB: UA ClnCatch+Micro w/rflx Cult (Collection Date & Time - 06/24/2025 07:30 AM) 3. P rostatism L AB: Complete Blood Count Auto Diff (Collection Date & Time - 06/24/2025 07:30 AM) L AB: Comprehensive [place]. Panel Fast (Collection Date & Time - 06/24/2025 07:30 AM) L AB: Lipid Panel (Collection Date & Time - 06/24/2025 07:30 AM) L AB: PSA,Total (Free>4and<10) (Collection Date & Time - 06/24/2025 07:30 AM) L AB: UA ClnCatch+Micro w/rflx Cult (Collection Date & Time - 06/24/2025 07:30 AM) * Procedure Codes: 3 6415 VENIPUNCT, ROUTINE* * * The named appointment provid er may or may not be the originator of this progress note, and it is not deemed complete until electronically signed by the appointment provider. Sign off status: Pending * Provider: Clay Shoemaker MD Date: 1 08/24/2024 Generated for Inna saldaña/Garfield/Nikole on: 09/18/2024 07:48 PM EST
--- OUTSIDE RECORDS SUMMARY | 2025-07-01 03:30 | XMS_ITS ---
Author Organization Daniel Shoemaker MD Address [address] [place], [place] [id number] Care Team Providers Care Landscape Nurseryman Name Role Phone Daniel Shoemaker Primary Care Provider Allergies Allergen (clinical drug ingredient) Drug/Non Drug Allergy documented on EMR Reaction Allergy Type Onset Date Status simvastatin Simvastatin myalgia Drug Allergy Act laci REASON FOR VISIT COMP EXAM, HCC Risk Code: Z68.41 BMI 40-44.9 Medications Medication SIG (Take, Route, Frequency, Duration) Notes Start Date End Date Status Vitamin D 50 MCG (1999) 1 capsule Ora lly Once a day for 30 day(s) Active Rosuvastatin Calcium 10 MG Take 1 tablet by mouth once daily Orally Once a day for 90 days Active Social History Tobacco Use: Social History Observation [...] Never (0 point) Points 1 Interpretation Negative Vital Signs Blood pressure systolic 142 mm Hg 07/01/20 25 Blood pressure diastolic 80 mm Hg 025 Height 63.25 in 07/01/2025 Weight 252 lbs 07/01/2025 BMI 44.28 kg/m2 07/01/2025 Encounters Encounter Location Date Provider Diagnosis Daniel Shoemaker MD [address] [place] [phone] 07/01/2025 Daniel Shoemaker Rising PSA level R97 .20 ; Prediabetes R73.09 ; Dysplastic nevus D23.9 ; Pure hypercholesterolemia E78.00 and Depression screening Z13.31 Assessments Encounter Date Diagnosis (ICD Code) Assessment Notes Treatment Notes Treatment Clinical Notes Section Notes 07/01/2025 Rising PSA level (ICD-10 - R97.20) will recheck z 07/01/2025 Prediabetes (ICD-10 - R73.09) doing well with good a1c, no need for medication at ths time z 07/01/2025 Dysplastic nevus (ICD-10 - D23.9) is followed by dermatology z 07/01/2025 Pure hypercholesterolemia (ICD-10 - E78.00) stable, will continue current regiment z 07/01/2025 Depression screening (ICD-10 - Z13.31) negative screen z Plan Of Treatment Treatment Notes Assessment Notes Rising PSA level will recheck Prediabetes doing well with good a1c, no need for medication at ths time Dysplastic nevus is followed by carmela [facility]y Pure hypercholesterolemia stable, will c ontinue current regiment Depression screening negative screen Future Test Test Name Order Date PSA,Total (Free>4and<10) 12/29/2025 Next Appt Details Follow Up: 6 Months, Reason: Provider Name:Daniel ascencio, 12/30/2025 07:30:00 AM, [address] [place] [address], [address], [phone], Provider Name:Daniel ascencio, 01/02/2026 10:00:00 AM, [address] [place] [address], [address], [phone], Provider Name:Daniel ascencio, 07/06/2026 07:15:00 AM, [address] [place] [address], [address], [phone], Provider Name:Daniel ascnecio, 07/13/2026 10:30:00 AM, [address] [place] [address], [address], [place], [phone], Progress Notes * Alonso CASILLASDOB:1955 (69 yo M)Acc No.[id number]:07/01/2025 Patient: Alonso WESTON Provider: Clay Shoemaker MD :1955 A ge:69 Y S ex:Male Date:07/01/2025 Address: [address], [facility], [id number] Subjective: * Chief Complaints: * C OMP EXAMHC Risk Code: Z68.41 BMI 40-44.9 * HPI: D epression Screening: PHQ-9 L ittle interest or pleasure in doing things N ot at all, F eeling down, depressed, or hopeless N ot at all, T rouble falling or staying asleep, or sleeping too much N ot at all, F eeling tired or having little energy N ot at all, P oor appetite or overeating N ot at all, F eeling bad about yourself or that you are a failure, or have let yourself or your family down N ot at all, T rouble concentrating on things, such as reading the newspaper or watching television N ot at all, M oving or speaking so slowly that other people could have noticed; or the opposite, being so fidgety or restless that you have been moving around a lot more than usual N ot at all, T houghts that you would be better off or of hurting yourself in some way N ot at all, T otal Score 0 . I nterpretation and Intervention D epression Screening Findings N egative, F ollow-Up for Depression : review of PHQ-9 found negative result, no follow-up needed. C ommunication Needs: Communication Needs D oes the patient have a hearing impairment N o, D oes the patient have a vision impairment? Y es, I f yes, what is the vision impairment? G lasses, D oes the patient have a cognition impairment? N o. F all Risk: History H ave you had any falls with injury in the past year? N o, H ave you had two or more falls in the past year? N o. S DONNY Questions: SDOH Questions I n the past year have you been worried about losing housing? N o, I n the past year have you or any family members you live with been unable to get any of the following when it was really needed? Check all that apply: N one. S ymptom(s): patient is a 69yo male here for review of recent labs and follow up of chronic issues. * ROS: G eneral/Constitutional: Change in appetite d enies. C hills d enies. F ever d enies. O phthalmologic: Blurred vision d enies. D ischarge d enies. P ain d enies. E NT: Decreased hearing d enies. S ore throat d enies.?Swollen glands d enies. E ndocrine: Cold intolerance d enies. E xcessive thirst d enies. H eat intolerance d enies. W eight loss d enies. R espiratory: Cough d enies. S hortness of breath at rest d enies. S hortness of breath with exertion d enies. W heezing d enies. C ardiovascular: Chest pain at rest d enies. C hest pain with exertion?denies. I rregular heartbeat d enies. S hortness of breath d enies. ? G astrointestinal: Abdominal pain d enies. C hange in bowel habits d enies. D iarrhea d enies. N ausea d enies. R ectal bleeding d enies. V omiting d enies . G enitourinary: Blood in urine d enies. D ifficulty urinating d enies. F requent urination d enies. M usculoskeletal: Painful joints d enies. W eakness d enies. ? S kin: Dry skin d enies. I tching d enies. D enies?Mole(s), changes in moles, new moles or any lesions of concern. D enies P hotosensitivity. R vasu d enies. N eurologic: Dizziness d enies. F ainting d enies. H eadache?denies. * Medical History: * Surgical History: * Hospitalization/Major Diagno stic Procedure: * Family History: F ather: 70 yrs, diagnosed with Diabetes. M other: 87 yrs, diagnosed with Diabetes. 1 brother(s) . 1 son(s) , 1 daughter(s) . . 3 brothers Father- torn aorta Mother- old age, Denies mental health/substance abuse family history, No pertinent family medical history, Denies mental health/substance abuse family history. * Social History: T obacco Use: T obacco Use/Smoking P atient is a n onsmoker, A dditional Findings: Tobacco Non-User F ormer smoker, currently using no form of tobacco. D rugs/Alcohol: A lcohol Screen D id you have a drink containing alcohol in the past year? Y es, H ow often did you have a drink containing alcohol in the past year? M onthly or less (1 point), H ow many drinks did you have on a typical day when you were drinking in the past year? 1 or 2 drinks (0 point), H ow often did you have 6 or more drinks on one occasion in the past year? N ever (0 point), P oints 1 , I nterpretation N egative. M iscellaneous: C affeine: yes, frequency:, 2-3 cups per day. Children: yes. Community involvements: no. Exercise: no. Home smoke detector use: yes. Housing: owning. Living with: spouse. Marital status: . Pets: none. * Medications: T akingVitamin D 50 MCG (1999 [place]) Capsule 1 capsule Orally Once a day Rosuvastatin Calcium 10 MG Tablet Take 1 tablet by mouth once daily Orally Once a day Taking Vitamin D 50 MCG (1999 [place]) Capsule 1 capsule Orally Once a day Taking Rosuvastatin Calcium 10 MG Tablet Take 1 tablet by mouth once daily Orally Once a day DiscontinuedTamsulosin HCl 0.4 MG Capsule TAKE 1 CAPSULE BY MOUTH EVERY DAY Medication List reviewed and reconciled with the patientDiscontinued Tamsulosin HCl 0.4 MG Capsule TAKE 1 CAPSULE BY MOUTH EVERY DAY Medication List reviewed and reconciled with the patient * Allergies: S imvastatin: myalgiayes[Allergies Verified] Objective: * Vitals: H t: 63.25, Wt: 252, BMI:44.28, BP:142/80, Repeat BP:138/80, Wt-k.31. * P ast Orders: L ab:Lipid Panel (Order Date - 06/24/2025) (Collection Date & Time - 06/24/2025 07:30 AM) Value Reference Range Triglycerides 98 <150 - mg/dL Cholesterol 156 <200 - mg/dL LDL Cholesterol Calculated 91 <100 - mg/dL HDL Cholesterol 46 >40 - mg/dL L ab:UA ClnCatch+Micro w/rflx Cult (Order Date - 06/24/2025) (Collection Date & Time - 06/24/2025 07:30 AM) Value Reference Range Color Urine Yellow - Appearance Urine Clear - PH 6.5 5.0-9.0 - Glucose Urine UA Negative Negative - mg/dL Urine Blood Negative Negative - Specific [place] - Urine 1.015 1.005-1.025 - Urine Protein Trace Neg-Trace - mg/dL Urine Ketones Negative Negative - mg/dL Nitrite Urine Negative Negative - Leukocyte Esterase Urine Negative Negative - RBC Urine 0-2 0-2 - /HPF WBC Urine 0-5 0-5 - /HPF Squamous Epithelial Cell Urine 0-2 0-2 - /HP F Bacteria Urine None Seen None Seen - Hyaline Casts Urine 0-2 0-2 - /LPF L ab:Complete Blood Count Auto Diff (Order Date - 06/24/2025) (Collection Date & Time - 06/24/2025 07:30 AM) Value Reference Range White Blood Count 7.0 4.8-10.8 - X10*3/uL Red Blood Count 5.02 4.60-5.80 - X10*6/uL Hemoglobin 14.2 14.0-18.0 - g/dl Hematocrit 44.1 42.0-52.0 - % Mean Corpuscular Volume 87.8 80.0-98.0 - fL Mean Corpuscular Hemoglobin 28.3 27.0-33.0 - pg Mean Corpuscular HGB Conc 32.2 31.0-36.0 - g/ dl Red Cell Distribution Width 14.0 11.0-16.0 - % Platelet Count 228 160-400 - X10*3/uL Mean Platelet Volume 10.4 9.4-12.4 - fL Neutrophils Percent Auto 57.7 45-73 - % Imm Gran Pct Auto 0.4 0.0-0.4 - % Lymphocytes Percent Auto 22.7 20-40 - % Monocytes Percent Auto 9.9 2-11 - % Eosinophils Percent Auto 8.7 H 0-4 - % Basophils Percent Auto 0.6 0-2 - % NRBC Pct Auto 0.0 0.0-0.2 - /100WBC Neutrophils Absolute Auto 4.1 2.0-8.3 - x10* 3/uL Imm Gran Abs Auto 0.03 0.00-0.03 - X10*3/uL Lymphocytes Absolute Auto 1.6 1.2-4.9 - X10* 3/uL Monocytes Absolute Auto 0.7 0.1-1.2 - X10*3/ uL Eosinophils Absolute Auto 0.6 H 0.0-0.4 - X10* 3/uL Basophils Absolute Auto 0.0 0.0-0.2 - X10*3/ uL NRBC Abs Auto 0.000 0.0-0.012 - X10*3/uL L ab:Comprehensive [place]. Panel Fast (Order Date - 06/24/2025) (Collection Date & Time - 06/24/2025 07:30 AM) Value Reference Range Sodium 142 135-145 - mmol/L Bilirubin Total 0.9 0.0-1.0 - mg/dL Aspartate Amino Transferase 34 5-37 - U/L Alanine Aminotransferase 29 0-40 - U/L Total Protein 7.3 6.5-8.0 - g/dL Albumin Level 4.3 3.5-5.0 - g/dL Alkaline Phosphatase 75 39-117 - U/L Potassium 4.3 3.3-5.1 - mmol/L Chloride 107 96-108 - mmol/L Carbon Dioxide 27 22-29 - mmol/L Anion Gap 12 12-20 - Blood Urea Nitrogen 14 9-16 - mg/dL Creatinine 0.80 0.5-1.4 - mg/dL Estimated Glomerular Filt Rate > 60 - Glucose Fasting 115 H 60-99 - mg/dL Calcium 9.5 8.4-10.2 - mg/dL * Examination: G eneral Examination: GENERAL APPEARANCE: w ell developed, well nourished, in no acute distress. HEAD: n ormocephalic, atraumatic. EYES: p upils equal, round, reactive to light and accommodation, sclera non-icteric. EARS: n ormal. ORAL CAVITY: m ucosa moist. THROAT: c lear. NECK/THYROID: n ronny supple, full range of motion, no cervical lymphadenopathy, no bruits. SKIN: w arm and dry, no suspicious lesions. HEART: r egular rate and rhythm, S1, S2 normal, no murmurs.? LUNGS: c lear to auscultation bilaterally. ABDOMEN: s oft, nontender, nondistended, bowel sounds present, normal, no organomegaly , no masses palpable. RECTAL EXAM: n ot done. had colonoscopy this year and had prostate surgery this month. MALE GENITOURINARY: n ot examined. EXTREMITIES: n o clubbing, cyanosis, or edema. NEUROLOGIC: n onfocal, motor strength normal upper and lower extremities, sensory exam intact. Assessment: * Assessment: 1. R ising PSA level - R97.20 (Primary) 2 . P rediabetes - R73.09 ? 3 . D ysplastic nevus - D23.9 4 . P ure hypercholesterolemia - E78.00? 5. D epression screening - Z13.31 z Plan: * Treatment: 2. P rediabetes Notes: doing well with good a1c, no need for medication at ths time 3. D ysplastic nevus Notes: is followed by dermatology 4. P ure hypercholesterolemia Notes: stable, will continue current regiment 5. D epression screening Notes: negative screen * Procedure Codes: * Follow Up: 6 Months * * Sign off status: Completed true * Provider: Clay Shoemaker MD Date: 08/31/2024 Generated for Inna saldaña/Garfield/Lalitaitting on: 09/18/2024 07:47 PM EST History and Physical Notes * HPI (History of Present Illness) Category Sub-Category Detail Notes Category Not es Symptom(s) patient is a 69 yo male here for review of recent labs and follow up of chronic issues Depression Screening PHQ-9 Little inte rest or pleasure in doing things: Not at all Feeling down, depressed, or hopeless: No t at all Trouble falling or staying asleep, or sl eeping too much: Not at all Feeling tired or having little energy: N ot at all Poor appetite or overeating: Not at all Feeling bad about yourself o r that you are a failure, or have let yourself or your family down: Not at all Trouble concentrating on thi ngs, such as reading the newspaper or watching television: Not at all Moving or speaking so slowly that other people could have noticed; or the opposite, being so fidgety or restless that you have been moving around a lot more than usual: Not at all Thoughts that you would be b lee off or of hurting yourself in some way: Not at all Total Score: 0 Interpretation and Intervention Depression Anabellae tereza Findings: Negative Follow-Up for Depression: : review of PH Q-9 found negative result, no follow-up needed SDOH Questions SDOH Questions In the past year have you been worried about losing housing?: No In the past year have you or any family members you live with been unable to get any of the following when it was really needed? Check all that apply:: None Fall Risk History Have you had any falls with injury i n the past year?: No Have you had two or more falls in the st year?: No Communication Needs Communication Needs Does the patient have a hearing impairment: No Does the patient have a vision impairmen t?: Yes If yes, what is the vision impairment?: Glasses Does the patient have a cognition impair ment?: No Examination Category Sub-Category Detail Notes Category Not es General Examination GENERAL APPEARANCE: well dev eloped, well nourished, in no acute distress HEAD: normocephalic, atrau matic EYES: pupils equal, round, reactive to light and accommodation, sclera non-icteric EARS: normal THROAT: clear NECK/THYROID: neck supple, full ra nge of motion, no cervical lymphadenopathy, no bruits HEART: regular rate and rhy thm, S1, S2 normal, no murmurs LUNGS: clear to auscultatio n bilaterally ABDOMEN: soft, nontender, non distended, bowel sounds present, normal, no organomegaly , no masses palpable NEUROLOGIC: nonfocal, motor stre ngth normal upper and lower extremities, sensory exam intact SKIN: warm and dry, no kaiden picious lesions EXTREMITIES: no clubbing, cyanosi s, or edema MALE GENITOURINARY: not examined RECTAL EXAM: not done. had colono scopy this year and had prostate surgery this month ORAL CAVITY: mucosa moist
--- NOTE | ~2025-07-18 | US_ITS ---
EXAMINATION: US KIDNEY BILATERAL HISTORY: Tubulo-interstitial nephritis, not specified as acute or chronic TECHNIQUE: Real-time grayscale ultrasound imaging of the kidneys was performed and images were reviewed. COMPARISON: There are no prior studies available for comparison. FINDINGS: Right kidney: The right kidney measures 12.4 x 6.3 x 5.7 cm. Renal parenchymal echotexture and thickness are normal. There are no masses. There is no hydronephrosis or renal calculi. Left Kidney: The left kidney measures 13.7 x 6.4 x 5.0 cm. Renal parenchymal echotexture and thickness are normal. There is a 1.3 x 1.4 x 1.2 cm cyst in the interpolar region and a 1.7 x 0.8 x 1.0 cm cyst at the lower pole. There is no hydronephrosis or renal calculi. US/US renal BI IMPRESSION: Left renal cysts as described. Otherwise unremarkable renal ultrasound. Electronically signed by: Zachery Brewster MD 07/18/2025 03:14 PM MARGARETTE BERRIOS
--- OUTSIDE RECORDS SUMMARY | 2025-07-18 19:47 | XMS_ITS | Clinical Summary ---
Author Organization [facility] Address [address] [address] Phone Care Team Providers Care Firer Electric Locomotive Name Role Phone Daniel Shoemaker MD Primary Care Provider Social History Tobacco Use Types Packs/Day Years Used Date Smoking Tobacco: Never Assessed Education Answer Date Recorded Are you interested in more education? Not on brandyn e 12/02/2022 Are you concerned about learning? Not on file 12/02/2022 No 12/02/2022 No 12/02/2022 Digital Access Answer Date Recorded No 12/31/2022 No 12/31/2022 No 12/31/2022 Reliable internet access at home? Not on file 12/31/2022 Device with a working camera? Not on file Sex and Gender Information Value Date Recorded Sex Assigned at Not on file Legal Sex Male 9:56 PM EDT Gender Identity Not on file Sexual Orientation Not on file Plan of Treatment Health Maintenance Due Date Last Done Comments LIPID PANEL 1955 DEPRESSION SCREENING 1966 SMOKING Hx and SMOKELESS TOBACCO SCREENING 1967 HEPATITIS C SCREENING 1972 COLOGUARD 1999 COLONOSCOPY 1999 COLORECTAL CANCER SCREENING 1999 FIT TEST 1999 FOBT 1999 SIGMOIDOSCOPY 1999 VIRTUAL COLONOSCOPY 1999 PNEUMOCOCCAL VACCINES (50+ years) (3 of 3 - PCV20 or PCV21) 04/05/2023 04/05/2018, 03/31/2017 INFLUENZA VACCINE (#1) 2025 , 04/15/2019, 05/03/2018, Additional history exists COVID-19 VACCINE ( season) 2025 12/02/2020, 11/07/2020 Adult Td,Tdap Booster 02/26/2029 02/26/2019 RSV VACCINE (1 - 1-dose 75+ series) 2029 ZOSTER VACCINES Completed 04/09/2019, 12/27/2018 HEPATITIS A VACCINES Aged Out No long er eligible based on patient's age to complete this topic HIB VACCINES Aged Out No longer eligi ble based on patient's age to complete this topic MENINGOCOCCAL VACCINES (ACWY) Aged Out No longer eligible based on patient's age to complete this topic MENINGOCOCCAL VACCINES (B) Aged Out N o longer eligible based on patient's age to complete this topic Medical Devices Not on file Insurance O Member Subscriber Plan / Payer (Ef fective 2014-Present) Name:Alonso Casillas Relation to Subscriber:Self Name:Alonso Casillas Payer ID:Not on file Type:HMO Address: [place] [id number] [facility] HMO Member Subscriber Plan / Payer (Ef fective 2014-Present) Name:Alonso Casillas Relation to Subscriber:Self Name:Alonso Casillas Payer ID:Not on file Type:HMO Address: [place] [id number] [facility] H[facility] HMO [facility] O Care Teams Firer Electric Locomotive Relationship Specialty Start Date End Date Daniel Shoemaker MD [address] [place] [address] [address] [place] [address] PCP - General Internal Medicine 11/07/18 Additional Source Comments The information contained in this document represents components of the legal health record. It is not the complete legal health record.[facility]
--- OUTSIDE RECORDS SUMMARY | 2025-07-18 19:47 | XMS_ITS | Encounter Summary ---
Author Organization [facility] Address [address] [place] [address] Care Team Providers Care Private Branch Exchange Service Adviser Name Role Phone Daniel Shoemaker MD Primary Care Provider Encounter Details Date Type Department Care Team (Late st Contact Info) Description 08/12/2024 Lab Requisition [facility] - Main Lab [address] [facility] [place] [address] Herson Rodriguez PA [address] [place] [address] Benign essential microscopic hematuria Social [...] 12:00 AM EST) Final Diagnosis Urine, Voided ([id number]): Negative for high grade urothelial carcinoma. Acute inflammation present. 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 Urine, Voided, : [id number] Received is one ThinPrep slide for cytology. 08/13/2024 10:01 AM EST [facility] Disclaimer Unless otherwise specified, all tissue is 10% NB formalin fixed and paraffin embedded. Technical pathology services provided by [facility] at [address], [place] [address] (CLIA #[id number]/Rizwan Pederson MD, Legal Recruiter) 08/13/2024 10:01 AM EST [facility] Tissue Urine specimen from urethra / Unknown 07/26/2024 08/12/2024 8:25 AM EST us [facility] ORDERAB LES Final Result [facility] [address] [place] [address], documented in this encounter Visit Diagnoses Diagnosis Benign essential microscopic hematuria documented in this encounter Care Teams Private Branch Exchange Service Adviser Relationship Specialty Start Date End Date Daniel Shoemaker MD [address] [place] [address] PCP - General 03/27/23 documented as of this encounter
--- OUTSIDE RECORDS SUMMARY | 2025-07-18 19:48 | XMS_ITS | Encounter Summary ---
Author Organization Formerly [facility] Address [address] [place] [address] Phone Care Team Providers Care Cigar Packer Name Role Phone Daniel Shoemaker MD Primary Care Provider Reason for Referral * MRI/CAT Scan - Closed Specialty Diagnoses / Procedures Referred By Contbandar t Referred To Contact Radiology Diagnoses Urinary tract infection without hematuria, site unspecified Procedures CT Abdomen/Pelvis Arnaldo Burroughs MD [address] [place] [address] Phone: tel: fax: [email or web address] Referral ID Status Reason Start Date Expiration Date Visits Re quested Visits Authorized [id number] Closed 11/07/2018 01/06/2019 1 1 Encounter Details Date Type Department Care Team (Late st Contact Info) Description 11/07/2018 Ancillary Orders Virtual Department [address] [place] [address] Arnaldo Burroughs MD [address] [place] [address] [email or web address] Urinary tract infection without hematuria, site unspecified Social History Tobacco Use Types Packs/Day Years Used Date Smoking Tobacco: Never Assessed Sex and Gender Information Value Date Recorded Sex Assigned at Not on file Legal Sex Male 9:56 PM EDT Gender Identity Not on file Sexual Orientation Not on file documented as of this encounter Plan of Treatment Not on file documented as of this encounter Results * CT ABDOMEN/PELVIS WITHOUT CONTRAST (11/07/2018 1:50 PM EDT) Anatomical Region Laterality Modality Abdomen, Pelvis Computed Tomogra phy 11/07/2018 2:15 PM EDT Impressions 11/07/2018 2:28 PM EDT 1. Mild left hydroureteronephrosis with perinephric and periureteral stranding without evidence of radiopaque urinary tract calculi. This may be due to recently recently passed calculus or pyelonephritis. 2. Cholelithiasis. 3. Distal descending colon within a left inguinal hernia. No evidence of obstruction. 4. Advanced lumbar spine degenerative disc disease. 5. Additional findings as above. TOTAL CTDIvol: 12.6 mGy POS - [id number] Narrative 11/07/2018 2:28 PM EDT COMPARISON: None. TECHNIQUE: CT abdomen and pelvis without oral or IV contrast. Multiplanar reformatted images generated. Automated exposure control utilized. CT ABDOMEN AND PELVIS FINDINGS: Lung bases/heart: Heart is not imaged. Lung bases are clear. Spleen: Imaged spleen is normal. Liver: Imaged liver is normal. Gallbladder/biliary tree: 2.9 cm calcified gallstone. No biliary dilatation or inflammation. Pancreas: Normal. Adrenal glands: Normal. Vasculature: Mild arterial calcified plaque. No AAA. Genitourinary: Mild left hydroureteronephrosis with perinephric and periureteral stranding. There is a too small to characterize subcentimeter hypodensity in the posterior left lower renal pole which may represent a cyst. There is a 7 mm exophytic hypodensity in the anterior left upper renal pole with Hounsfield units measuring 51. This is likely an incidental hyperdense cyst. Right kidney is normal. No radiopaque urinary tract calculi. Trujillo catheter balloon within the decompressed bladder. Prostate is normal in size. Seminal vesicles are normal. Gastrointestinal tract: Imaged stomach is normal. Small bowel and appendix are normal. Mild sigmoid colon diverticulosis. There is herniation of a portion of the distal descending colon within a left inguinal hernia. No bowel obstruction. Peritoneum/retroperitoneum: No lymphadenopathy, ascites or fluid collections. Musculoskeletal: Small umbilical hernia and left inguinal hernia containing distal descending colon. Severe multilevel lumbar spine degenerative disc disease from L2-3 and L5-S1 with grade 1 spondylolisthesis of L2 due to bilateral spondylolysis with multilevel bony canal stenosis and neural foraminal stenosis and multilevel lumbar spine facet arthropathy. No compression fractures. 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 No destructive bone lesions. Procedure Note Jesusita Brown MD - 11/07/2018 COMPARISON: None. TECHNIQUE: CT abdomen and pelvis without oral or IV contrast. Multiplanarreformatted images generated. Automated exposure control utilized. CT ABDOMEN AND PELVIS FINDINGS: Lung bases/heart: Heart is not imaged. Lung bases are clear. Spleen: Imaged spleen is normal. Liver: Imaged liver is normal. Gallbladder/biliary tree: 2.9 cm calcified gallstone. No biliarydilatation or inflammation. Pancreas: Normal. Adrenal glands: Normal. Vasculature: Mild arterial calcified plaque. No AAA. Genitourinary: Mild left hydroureteronephrosis with perinephric andperiureteral stranding. There is a too small to characterizesubcentimeter hypodensity in the posterior left lower renal pole which mayrepresent a cyst. There is a 7 mm exophytic hypodensity in the anteriorleft upper renal pole with Hounsfield units measuring 51. This is likelyan incidental hyperdense cyst. Right kidney is normal. No radiopaqueurinary tract calculi. Trujillo catheter balloon within the decompressedbladder. Prostate is normal in size. Seminal vesicles are normal. Gastrointestinal tract: Imaged stomach is normal. Small bowel andappendix are normal. Mild sigmoid colon diverticulosis. There isherniation of a portion of the distal descending colon within a leftinguinal hernia. No bowel obstruction. Peritoneum/retroperitoneum: No lymphadenopathy, ascites or fluidcollections. Musculoskeletal: Small umbilical hernia and left inguinal herniacontaining distal descending colon. Severe multilevel lumbar spinedegenerative disc disease from L2-3 and L5-S1 with grade 1spondylolisthesis of L2 due to bilateral spondylolysis with multilevelbony canal stenosis and neural foraminal stenosis and multilevel lumbarspine facet arthropathy. No compression fractures. Mild bilateral hipand SI joint arthritis. No destructive bone lesions. IMPRESSION: 1. Mild left hydroureteronephrosis with perinephric and periureteralstranding without evidence of radiopaque urinary tract calculi. This maybe due to recently recently passed calculus or pyelonephritis. 2. Cholelithiasis. 3. Distal descending colon within a left inguinal hernia. No evidence ofobstruction. 4. Advanced lumbar spine degenerative disc disease. 5. Additional findings as above. TOTAL CTDIvol: 12.6 mGy POS - [id number] Arnaldo Burroughs MD IMG CT ABD/PELVIS Final Result documented in this encounter Visit Diagnoses Diagnosis Urinary tract infection without hematuria, site unspecified Urinary tract infection without hematuria, site unspecified documented in this encounter Care Teams Cigar Packer Relationship Specialty Start Date End Date Daniel Shoemaker MD [address] [place] [address] [place] [id number] PCP - General Internal Medicine 11/07/18 documented as of this encounter Additional Source Comments The information contained in this document represents components of the legal health record. It is not the complete legal health record.[facility]
--- OUTSIDE RECORDS SUMMARY | 2025-07-18 19:48 | XMS_ITS | Patient Health Record ---
Author Organization Daniel Shoemaker MD Address [address] [place], [place] [id number] Care Team Providers Care Auto Battery Builder Name Role Phone Daniel Shoemaker Primary Care Provider Allergies Allergen (clinical drug ingredient) Drug/Non Drug Allergy documented on EMR Reaction Allergy Type Onset Date Status simvastatin Simvastatin myalgia Drug Allergy Act laci Results Component Value Reference Range Notes Liver Panel Reviewed date:12/16/2024 05:16:25 PM Interpretation: Performing Lab:[facility], [address] [place] [phone] Notes/Report: Bilirubin Total 0.7 0.0-1.0 mg/dL Bilirubin Direct 0.2 0.0-0.5 mg/dL Aspartate Amino Transferase 33 5-37 U/L Alanine Aminotransferase 34 0-40 U/L Total Protein 7.5 6.5-8.0 g/dL Albumin Level 4.4 3.5-5.0 g/dL Alkaline Phosphatase 79 39-117 U/L Glucose Fasting Reviewed date:12/16/2024 05:16:16 PM Interpretation: Performing Lab:[facility], [address] [place] [phone] Notes/Report: Glucose Fasting 116 60-99 mg/dL A fasting glucose from 100-125 mg/dl is considered impaired (pre-diabetes). Lipid Panel with Reflex Reviewed date:12/16/2024 05:17:29 PM Interpretation: Performing Lab:[facility], [address] [place] [phone] Notes/Report: Triglycerides 70 <150 mg/dL Desirable Triglyceride: [...] A1c Reviewed date:12/16/2024 05:17:03 PM Interpretation: Performing Lab:[address] [phone] Notes/Report: Hemoglobin A1c % 6.0 <6.0 % [...] average glucose, using the formula of the T2K-Unycfjf Average Glucose study (ADAG), Diabetes Care, Vol.31,#8, 2007 Complete Blood Count Auto Di ff Reviewed date:06/24/2025 04:18:49 PM Interpretation: Performing Lab:[facility], [address] [place] [phone] Notes/Report: White Blood Count 7.0 4.8-10.8 X10*3/uL [...] 0.0-0.2 /100WBC Neutrophils Absolute Auto 4.1 2.0-8.3 x10*3/uL Imm Gran Abs Auto 0.03 0.00-0.03 X10*3/uL Lymphocytes Absolute Auto 1.6 1.2-4.9 X10*3/uL Monocytes Absolute Auto 0.7 0.1-1.2 X10*3/uL Eosinophils Absolute Auto 0.6 0.0-0.4 X10*3/uL Basophils Absolute Auto 0.0 0.0-0.2 X10*3/uL NRBC Abs Auto 0.000 0.0-0.012 X10*3/uL Comprehensive Christine. Panel Fa st Reviewed date:06/24/2025 04:20:37 PM Interpretation: Performing Lab:[facility], [address] [place] [phone] Notes/Report: Sodium 142 135-145 mmol/L Potassium 4.3 [...] Panel Reviewed date:06/24/2025 12:52:20 PM Interpretation: Performing Lab:[facility], [address] [place] [phone] Notes/Report: Triglycerides 98 <150 mg/dL Desirable Triglyceride: [...] (Free>4and<10) Reviewed date:07/01/2025 11:49:52 AM Interpretation:07-01-2025 Performing Lab:[facility], [address] [place] [phone] Notes/Report: PSA,Total (Free>4and<10) 1.82 0.00-4.00 ng/mL A [...] t Reviewed date:06/24/2025 04:20:00 PM Interpretation: Performing Lab:[facility], [address] [place] [phone] Notes/Report: Urine, Clean Catch Color Urine Yellow Appearance Urine Clear PH 6.5 5.0-9.0 Glucose Urine UA Negative Negative mg/dL Urine Blood Negative Negative Specific [place] - Urine 1.015 1.005-1.025 Urine Protein Trace Neg-Trace mg/dL Urine Ketones Negative Negative mg/dL Nitrite Urine Negative Negative Leukocyte Esterase Urine Negative Negative RBC Urine 0-2 0-2 /HPF WBC Urine 0-5 0-5 /HPF Squamous Epithelial Cell Urine 0-2 0-2 /HPF Bacteria Urine None Seen None Seen Hyaline Casts Urine 0-2 0-2 /LPF Pathology Reviewed date:11/07/2024 12:40:41 PM Interpretation: Performing Lab:[facility], [address] [place] [phone] Notes/Report: ----- Name: Tiana Casillas Age/Sex: 69/M : 1955 Unit#: [id number] Attend Dr: Zachery Bustillos MD Re11/06/24 Status : [facility] Location: [facility] Disch: ----- SPEC : [id number] RECD : 11/06/24 STATUS: ANNE RIVAS NUM: [id number] ELLIOTT: 11/06/[address] [facility] DR: Zachery Bustillos MD ENTERED: 11/06/24-10 21 SP TYPE: Surgical OTHR DR: Daniel Shoemaker [...] Daniel Shoemaker MD [facility] [address] [place] [address] Zachery Bustillos MD [facility] [address] [place] [address] ----- Signed (signature on file) Carmelita Aguirre 11/07/24 1230 ----- END OF REPORT Ruiz Jennings Reviewed date:12/16/2024 12:26:58 PM Interpretation: Performing Lab:[facility], [address] [place] [address], [place] [address] Notes/Report: Ruiz Jennings See Note Specimen held untested for 24 hours; Call to request Chemistry testing. XR lumbar spine 4V min Reviewed date:12/22/2024 04:50:01 PM Interpretation: Performing Lab: Notes/Report: [address] [address] XRay Report Signed Patient: Alonso Casillas MR#: [id number] : 1955 Acct:[id number] Age/Sex: 69 / M ADM Date: 12/20/24 Loc: ERIK Attending Dr: Daniel Shoemaker MD Ordering Physician: Daniel Shoemaker MD Date of Service: 12/20/24 Procedure(s): XR lumbar spine 4V min Accession Number(s): [id number] cc: Daniel Shoemaker MD EXAMINATION: XR LUMBAR SPINE 4 OR MORE VIEWS HISTORY: FLEXION AND EXTENSION, SPINAL STENOSIS COMPARISON: There are no prior studies for comparison. FINDINGS: AP, and neutral, flexion, and extension lateral views of the lumbar spine are submitted. Osseous mineralization is normal. Five nonrib-bearing lumbar vertebral bodies are identified, maintaining normal height without evidence of fracture. There is grade I spondylolisthesis of L2 on L3 which does not change with flexion or extension. There is diffuse moderate to severe degenerative disc disease with disc space narrowing and osteophyte formation. There is osteoarthritis of the facet joints. The visualized paraspinal soft tissues are unremarkable. XR/XR lumbar spine 4V min IMPRESSION: Diffuse moderate to severe degenerative disc disease. Grade I spondylolisthesis of L2 on L3 without change with flexion or extension. Electronically signed by: Zachery Brewster MD 12/20/2024 01:25 PM EDT Dictated By: Zachery Brewster MD Signed By: <Electronically signed by Zachery Brewster MD in OV> 12/20/24 1325 DD/ 1054 TD/TT: 12/20/24 1110 Auto Brake Mechanic: [address] [address] XRay Report Signed Patient: Ken Casillas MR#: [id number] : 1955 Acct:[id number] Age/Sex: 69 / M ADM Date: 12/20/24 Loc: ERIK Attending Dr: Daniel Shoemaker MD Ordering Physician: Daniel Shoemaker MD Date of Service: 12/20/24 Procedure(s): XR lum bar spine 4V min Accession Number(s): [id number] cc: Daniel Shoemaker MD EXAMINATION: XR LUMB AR SPINE 4 OR MORE VIEWS HISTORY: FLEXION AND EXTENSION, SPINAL STENOSIS COMPARISON: There ar e no prior studies for comparison. FINDINGS: AP, and neutral, flexion, and extension lateral views of the lumbar spine are submitted. Osseous mineralization is normal. Five nonrib-bearing lumba r vertebral bodies are identified, maintaining normal height withou t evidence of fracture. There is grade I spondylolisthesis of L2 on L3 which does not change with flexion or extension. There is diffuse moderate to severe degenerative disc disease with disc sp bere narrowing and osteophyte formation. There is osteoarthritis of th e facet joints. The visualized paraspinal soft tissues are unremarkable. X R/XR lumbar spine 4V min IMPRESSION: Diffuse moderate to severe degenerative disc disease. Grade I spondylolisthesis of L2 on L3 without change with flexion or extension. Electronically konstantin d by: Zachery Brewster MD 12/20/2024 01:25 PM EDT RP Dictated By: Zachery Brewster MD Signed By: <Electronically signed by Zachery Brewster MD in OV> 12/20/24 1325 DD/ 1054 TD/TT: 12/20/24 1110 Auto Brake Mechanic: Ruiz Lav - Possible Hematolo gy Reviewed date:06/24/2025 01:46:21 PM Interpretation: Performing Lab:[facility], [address] [place] [phone] Notes/Report: Hold Lav - Possible Hematology SEE NOTE Specimen will be held untested for 8 hours. Call Hematology if testing is desired. US renal BI Reviewed date:07/18/2025 05:31:16 PM Interpretation: Performing Lab: Notes/Report: [address] [address] Ultrasound Report Signed Patient: Alonso Casillas MR#: [id number] : 1955 Acct:[id number] Age/Sex: 69 / M ADM Date: 07/18/25 Loc: HO.US Attending Dr: Daniel Shoemaker MD Ordering Physician: Daniel Shoemaker MD Date of Service: 07/18/25 Procedure(s): US renal BI Accession Number(s): [id number] cc: Daniel Shoemaker MD Reason for Exam: Tubulo-interstitial nephritis, not specified as acute or chronic EXAMINATION: US KIDNEY BILATERAL HISTORY: Tubulo-interstitial nephritis, not specified as acute or chronic TECHNIQUE: Real-time grayscale ultrasound imaging of the kidneys was performed and images were reviewed. COMPARISON: There are no prior studies available for comparison. FINDINGS: Right kidney: The right kidney measures 12.4 x 6.3 x 5.7 cm. Renal parenchymal echotexture and thickness are normal. There are no masses. There is no hydronephrosis or renal calculi. Left Kidney: The left kidney measures 13.7 x 6.4 x 5.0 cm. Renal parenchymal echotexture and thickness are normal. There is a 1.3 x 1.4 x 1.2 cm cyst in the interpolar region and a 1.7 x 0.8 x 1.0 cm cyst at the lower pole. There is no hydronephrosis or renal calculi. US/US renal BI IMPRESSION: Left renal cysts as described. Otherwise unremarkable renal ultrasound. Electronically signed by: Zachery Brewster MD 07/18/2025 03:14 PM [facility] Dictated By: Zachery Brewster MD Signed By: <Electronically signed by Zachery Brewster MD in OV> 07/18/25 1514 DD/ 1445 TD/TT: 07/18/25 1505 Auto Brake Mechanic: [address] [address] Ultrasound Report Signed Patient: Ken Casillas MR#: [id number] : 1955 Acct:[id number] Age/Sex: 69 / M ADM Date: 07/18/25 Loc: HO.US Attending Dr: Daniel Shoemaker MD Ordering Physician: Daniel Shoemaker MD Date of Service: 07/18/25 Procedure(s): US renal BI Accession Number(s): [id number] cc: Daniel Shoemaekr MD Reason for Exam: Tubulo-interstitial nephritis, not specified as acute or chronic EXAMINATION: US KIDN EY BILATERAL HISTORY: Tubulo-interstitial nephritis, not specified as acute or chronic TECHNIQUE: Real-time grayscale ultrasound imaging of the kidneys was performed and images were reviewed. COMPARISON: There ar e no prior studies available for comparison. FINDINGS: Right kidney: The ri ght kidney measures 12.4 x 6.3 x 5.7 cm. Renal parenchymal echotext ure and thickness are normal. There are no masses. There is no hydronephrosis or renal calculi. Left Kidney: The lef t kidney measures 13.7 x 6.4 x 5.0 cm. Renal parenchymal echotext ure and thickness are normal. There is a 1.3 x 1.4 x 1.2 cm cyst in the interpolar region and a 1.7 x 0.8 x 1.0 cm cyst at the lower pole. Ther e is no hydronephrosis or renal calculi. U S/US renal BI IMPRESSION: Left renal cysts as described. Otherwise unremarkable renal ultrasound. Electronically konstantin d by: Zachery Brewster MD 07/18/2025 03:14 PM [facility] Dictated By: Zachery Brewster MD Signed By: <Electronically signed by Zachery Brewster MD in OV> 07/18/25 1514 DD/ 1445 TD/TT: 07/18/25 1505 Auto Brake Mechanic: Reason For Referral Reason anterolisthesis Diagnosis 1 Anterolisthesis (M43 .10) Referral Organization Daniel Shoemaker MD Referring Provider First Name Daniel Referring Provider Last Name Navid Referring Provider Speciality Internal M edicine Referred Provider Zachery Flores Referred Provider Specialty Orthopedic S urgery General Notes Susan Rodriguez 0 12/24/2024 09:39:40 AM >info faxed, Susan Rodriguez 01/10/2025 03:11:24 PM >patient is aware of appt Referral Priority Routine Referral Appointment Date 02/20/2025 Medications Medication SIG (Take, Route, Frequency, Duration) Notes Start Date End Date Status Vitamin D 50 MCG (1999) 1 capsule Ora lly Once a day for 30 day(s) Active Rosuvastatin Calcium 10 MG Take 1 tablet by mouth once daily Orally Once a day for 90 days Active Immunizations Vaccine Route Administration Date Status Comme nts Fluarix Quadrivalent IM Intramuscular 04/14/2014 Administered Shingles IM Intramuscular 03/02/2015 Administered Fluarix Quadrivalent IM Intramuscular 05/04/2015 Administered pt recieved injection at [facility] in [place]. PPSV23 (Pnemovax) IM Intramuscular 03/31/2017 Administered Fluarix Quadrivalent IM Intramuscular 04/18/2017 Administered Prevnar 13 IM Intramuscular 04/05/2018 Administered Fluarix Quadrivalent IM Intramuscular 05/03/2018 Administered Shingrix IM Intramuscular 12/27/2018 Administered TDaP IM Intramuscular 02/26/2019 Administered pt was given the vaccine at [facility]. Shingrix IM Intramuscular 04/09/2019 Administered Tetanus Unknown [...] High Dose IM Intramuscular 04/16/2024 Administer ed Influenza High Dose IM Intramuscular 05/09/2025 Administer ed PPSV23 (Pnemovax) Unknown 09/14/2015 Refused [...] Problem Status W/U Status Risk Notes Problem 69929712 Prostatism (N40.0) Active confirmed Problem 464669969 Morbid (severe) obesity due to excess calories (E66.01) Active confirmed Problem 217575516 Body mass index (BMI) 40.0-44.9, adult (Z68.41) Active confirmed Problem 5902077 Prediabetes (R73.09) Active confirmed Problem 098186177 Morbid obesity d ue to excess calories (E66.01) Active confirmed Problem 00042057 RBBB (I45.10) Active confirmed Problem 721100041 Pure hypercholesterolemia (E78.00) Active confirmed Problem 614044324 Dysplastic nevus (D23.9) Active confirmed Problem Acquired spondylolisthesis (865197294) Anterolisthesis (M43.10) Active confirmed Problem 197815471 Body mass index [BMI] 40.0-44.9, adult (Z68.41) Active confirmed Problem 819877646 Asymptomatic cholelithiasis (K80.20) Active confirmed Vital Signs Blood pressure diastolic 80 mm Hg 07/01/2025 Height 63.25 in 07/01/2025 Blood pressure systolic 142 mm Hg 07/01/2025 Weight 252 lbs 07/01/2025 BMI 44.28 kg/m2 07/01/2025 Encounters Encounter Location Date Provider Diagnosis Daniel Shoemaker MD [address] [place] [id number] 12/16/2024 Daniel Shoemaker Prediabetes R73.09 a nd Pure hypercholesterolemia E78.00 Daniel Shoemaker MD [address] [place] [id number] 05/09/2025 Daniel Shoemaker Encounter for administration of vaccine Z23 Daniel Shoemaker MD [address] [place] [id number] 06/24/2025 Daniel Shoemaker Prediabetes R73.09 ; Pure hypercholesterolemia E78.00 and Prostatism N40.0 Daniel Shoemaker MD [address] [place] [id number] 09/16/2024 Daniel Shoemaker Gross hematuria R31. 0 ; Kidney lesion N28.9 and Asymptomatic cholelithiasis K80.20 Daniel Shoemaker MD [address] [place] [id number] 12/24/2024 Daniel Shoemaker Spinal stenosis M48. 00 ; Anterolisthesis M43.10 and Hematuria R31.9 Daniel Shoemaker MD [address] [place] [id number] 07/01/2025 Daniel Shoemaker Rising PSA level R97 .20 ; Prediabetes R73.09 ; Dysplastic nevus D23.9 ; Pure hypercholesterolemia E78.00 and Depression screening Z13.31 Daniel Shoemaker MD [address] [place] [id number] 09/09/2024 Daniel Shoemaker MD [address] [place] [id number] 09/17/2024 Daniel Shoemaker Pure hypercholestero lemia E78.00 Daniel Shoemaker MD [address] [place] [id number] 12/20/2024 Daniel Shoemaker Spinal stenosis M48. 00 Daniel Shoemaker MD [address] [place] [id number] 03/12/2025 Daniel Shoemaker MD [address] [place] [address] [id number] 05/01/2025 Daniel Shoemaker Pyelonephritis N12 Assessments Encounter Date Diagnosis (ICD Code) Assessment Notes Treatment Notes Treatment Clinical Notes Section Notes 12/16/2024 Prediabetes (ICD-10 - R73.09) 05/09/2025 Encounter for administration of vaccine (ICD-10 - Z23) 06/24/2025 Prediabetes (ICD-10 - R73.09) 09/16/2024 Gross hematuria (ICD -10 - R31.0) seeing urology 09/16/2024 Kidney lesion (ICD-1 0 - N28.9) getting mri 12/24/2024 Spinal stenosis (ICD -10 - M48.00) 12/24/2024 Anterolisthesis (ICD -10 - M43.10) referral to dr phan at [facility]. he is going to see him tomorrow with his 07/01/2025 Rising PSA level (ICD-10 - R97.20) will recheck z 07/01/2025 Prediabetes (ICD-10 - R73.09) doing well with good a1c, no need for medication at ths time z 09/17/2024 Pure hypercholesterolemia (ICD-10 - E78.00) 12/20/2024 Spinal stenosis (ICD -10 - M48.00) 05/01/2025 Pyelonephritis (ICD- 10 - N12) Order made and printed and put into the furture folder for 3-202512/16/2024 Pure hypercholesterolemia (ICD-10 - E78.00) 06/24/2025 Pure hypercholesterolemia (ICD-10 - E78.00) 09/16/2024 Asymptomatic cholelithiasis (ICD-10 - K80.20) warned patient of the presence in case he has pain there 12/24/2024 Hematuria (ICD-10 - R31.9) has been evaluated by urology 07/01/2025 Dysplastic nevus (ICD-10 - D23.9) is followed by dermatology z 06/24/2025 Prostatism (ICD-10 - N40.0) 07/01/2025 Pure hypercholesterolemia (ICD-10 - E78.00) stable, will continue current regiment z 07/01/2025 Depression screening (ICD-10 - Z13.31) negative screen z Plan Of Treatment Pending Test Test Name Order Date Electrocardiogram (EKG) 03/31/2017 Electrocardiogram (EKG) 04/05/2018 XR LUMBAR SPINE 4+ VIEWS 12/20/2024 US renal BI 05/01/2025 Next Appt Details Provider Name:Daniel ascencio, 12/30/2025 07:30:00 AM, [address] [place] [address], [address] [place] [address], [id number], Provider Name:Daniel ascencio, 01/02/2026 10:00:00 AM, [address] [place] [address], Suite [facility], [place], [place], [id number], Provider Name:Daniel ascencio, 07/06/2026 07:15:00 AM, [address] [place] [address], [address], [phone], Provider Name:Daniel ascencio, 07/13/2026 10:30:00 AM, [address], [address], [place], [place], [phone], Insurance Providers Payer Name Payer Address Payer Phone Subscriber Number Group Number Insured Name Patient Relationship to Insured Coverage Start Date Coverage End Date MEDICARE NHIC [address] [place] [address] [id number] Alonso Casillas Self - patient is the insured [employer]UE [employer]UE [facility] [address] [place], [place] [phone] [id number] Javantaniya Alonso Self - patient is the insured Medical (General) History Medical History History ICD Code refuses flu vac colonoscopy 2008 tubular ruy noma due 2013; done 04/18/2014 - f/u 5 yrs; colonoscopy done 05/06/[address] Bustillos - repeat 5 years: 11/06/24 colonoscopy repeat 5y getting colonoscopy 07/30 had urolift 2024 Surgical History Surgery Date(Month/Year) Total Right Knee Arthroplasty 01/2016
--- OUTSIDE RECORDS SUMMARY | 2025-07-18 19:48 | XMS_ITS | Patient Health Record ---
Author Organization [facility] Address [address] [place] [address] Care Team Providers Care Fresco Artist Name Role Phone Daniel Shoemaker MD Primary Care Provider Zachery Seo [phone] Allergies No Known Allergies Results Component Value Reference Range Notes Pathology (Not yet reviewed by provider) Interpretation: Performing Lab:[facility], [address] [place] [phone] Notes/Report: Reason For Referral No Information Medications Medication SIG (Take, Route, Frequency, Duration) Notes Start Date End Date Status Tamsulosin HCl 0.4 MG Capsule 1 capsule Orally Once a day; Duration: 30 day(s) Active Azithromycin Hydrogencitrate Not-Taking/P RN Tobramycin-dexAMETHasone 0.3-0.1 % Suspension 4 drops into affected ear Ophthalmic Three times a day; Duration: 7 day(s) Active Rosuvastatin Calcium 10 MG Tablet 1 tablet Orally Once a day; Duration: 30 day(s) Active PreserVision AREDS 2 - Capsule as directed Orally once a day Active Vitamin C 500 MG Tablet 1 tablet Orally Once a day Active Centrum - Tablet as directed Orally once a day Active Aspir-81 81 MG Tablet Delayed Release 1 tablet Orally Once a day Active Co Q10 30 MG Capsule 1 capsule with a meal Orally Once a day Active Immunizations Vaccine Route Administration Date Status Comme nts Influenza Unknown 05/23/2018 Administered Social History Social History Additional Details Category Social Info Options Details Miscellaneous: Marital status: 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 Section Notes: Nonsmoker; no sig alcohol Nonsmoker; no sig alcohol Nonsmoker; no sig alcohol Problems Problem Type SNOMED Code ICD Code Onset Dates Problem Status W/U Status Risk Notes Problem Colon cancer screening (012202265) Colon cancer screening (Z12.11) Active confirmed Problem Screening for malignant neoplasm of colon (582713081) Encounter for screening for malignant neoplasm of colon (Z12.11) Active confirmed Problem History of polyp of colon (situation) (508886416) Personal history of colonic polyps (Z86.010) Active confirmed Problem Long-term current use of antiplatelet drug (786236086859932) shelter (current) use of aspirin (Z79.82) Active confirmed Problem Preprocedural examination (050142778454766) Preprocedural examination (Z01.818) Active confirmed Problem History of adenomatous polyp of colon (711681384) Hx of adenomatous colonic polyps (Z86.010) Active confirmed Encounters Encounter Location Date Provider Diagnosis [facility] [address] [place] [id number] 11/06/2024 Zachery Bustillos Colon cancer scree tereza [...] Date MEDICARE OF [place] [address] [place] [address] [id number] AVINASH MONROE Self - patient is the insured [employer] ATT[employer] CLAIMS [address] [place] [address] [phone] [id number] AVINASH MONROE Self - patient is the insured Medical (General) History Medical History History ICD Code Screening Colonoscopy, 2008 -- 2 tubular adenomas removed; neg. colonoscopy in 04/2014 Denies IA,DM,CVA,Lung disease,renal dise ase Hyperlipidemia BPH Colonoscopy 04/2019 with one tubular shin helen Surgical History Surgery Date(Month/Year) Knee replacements on the right in 2013 a 2018 Retina detachment on the right
--- OUTSIDE RECORDS SUMMARY | 2025-07-18 19:48 | XMS_ITS | Encounter Summary ---
Author Organization [facility] Address [address] [place] [address] Care Team Providers Care Product Transfer Pumper Name Role Phone Daniel Shoemaker MD Primary Care Provider Encounter Details Date Type Department Care Team (Late st Contact Info) Description 09/19/2024 Lab Requisition [facility] - Main Lab [address] [facility] [place] [address] Herson Rodriguez PA [address] [place] [address] Gross hematuria Social History Tobacco [...] AM EST) Final Diagnosis A. Urine, Voided, ([id number]): Negative for high grade urothelial carcinoma. Results of UroVysion fluorescence in situ hybridization (FISH) testing: CEP3: Normal CEP7: Normal CEP17: Normal LSI 9p21: Normal Interpretation: Normal profile Controls stained appropriately. Note: The results are intended as a screening device and should be interpreted in association with other clinical and pathological findings. 09/25/2024 9:42 AM EST [facility] at 0942 EST Clinical Information Gross hematuria R31.0 Urine Cytology/FISH (now) 09/25/2024 9:42 AM [facility] Gross Description A. Urine, Voided, ([id number]): Received one ThinPrep slide for cytology and one ThinPrep slide for UroVysion FISH Second cytology slide processed due to stain issue with first slide. 09/25/2024 9:42 AM [facility] Disclaimer Unless otherwise specified, all tissue is 10% NB formalin fixed and paraffin embedded. Technical pathology services provided by [facility] at [address], [place] [address] (CLIA #[id number]/Janeen Pederson MD, Refresh Technician) 09/25/2024 9:42 AM [facility] Tissue Urine specimen from urethra / Unknown 09/13/2024 09/19/2024 3:10 PM EST us Herson POLANCO [facility] PATHOLOGY ORDERAB LES Final Result [facility] [address] [place] [address], documented in this encounter Visit Diagnoses Diagnosis Gross hematuria documented in this encounter Care Teams Product Transfer Pumper Relationship Specialty Start Date End Date Daniel Shoemaker MD [address] [place] [address] PCP - General 03/27/23 documented as of this encounter
--- OUTSIDE RECORDS SUMMARY | 2025-07-18 19:48 | XMS_ITS | Clinical Summary ---
Author Organization [address] [facility] Address [address] [place] [address] Phone Care Team Providers Care Machine Sign Writer Name Role Phone Daniel Shoemaker MD Primary Care Provider Allergies No known active allergies Social History Tobacco Use Types Packs/Day Years Used Date Smoking Tobacco: Never Assessed Sex and Gender Information Value Date Recorded Sex Assigned at Not on file Legal Sex Male 8:47 PM EST Gender Identity Not on file Sexual Orientation Not on file Last Filed Vital Signs Vital Sign Reading Time Taken Comments Blood Pressure - - Pulse - - Temperature - - Respiratory Rate - - Oxygen Saturation - - Inhaled Oxygen Concentration - - Weight 111 kg (245 lb) 04/03/2025 10:46 AM EDT Height 188 cm (6' 2 ) 04/03/2025 10:46 AM EDT Body Mass Index 31.46 04/03/2025 10:46 AM EDT Plan of Treatment Health Maintenance Due Date Last Done Comments Colorectal Cancer Screening: Colonoscopy 1955 Pneumococcal Vaccine: 50+ Years (3 of 3 - PCV20 or PCV21) 04/05/2023 04/05/2018, 03/31/2017 Abdominal Aortic Aneurysm (AAA) Screen 09/01/2023 Cholesterol Screening (Lipid Panel) 09/01/2023 Falls Risk Assessment 09/01/2023 Hepatitis C Screening 09/01/2023 Medicare Annual Wellness Visit 09/01/2023 Social Influencers of Health Screening 09/01/2023 Depression Screening 08/07/2024 COVID-19 Vaccine ( season) 2025 04/29/2024, 09/12/2023, 04/01/2023, Additional history exists Influenza Vaccine (#1) 2025 , 04/18/2023, 05/24/2022, Additional history exists DTaP,Tdap,and Td Vaccines (3 - Td or Tdap) 02/26/2029 02/26/2019, 02/26/2019 Zoster Vaccines Completed 04/09/2019, 12/27/2018 RSV Immunization Adult Patients Completed 04/24/2024 HIB Vaccines Aged Out No longer eligi [...] to complete this topic RSV Immunization Patients Under 20 months Aged Out No longer eligible based on patient's age to complete this topic Varicella Vaccines Aged Out No longer eligible based on patient's age to complete this topic Insurance MEDICARE [facility] Care Teams Machine Sign Writer Relationship Specialty Start Date End Date Daniel Shoemaker MD [address] [place] [address] Drive [address] [place] [address] PCP - General 03/27/23
--- OUTSIDE RECORDS SUMMARY | 2025-07-18 19:48 | XMS_ITS | Encounter Summary ---
Author Organization [facility] Address [address] [facility] [address] [place] [address] Phone Care Team Providers Care Occupational Therapy Specialist Name Role Phone Daniel Shoemaker MD Primary Care Provider Encounter Details Date Type Department Care Team (Late st Contact Info) Description 11/16/2018 Ancillary Orders Virtual Department [address] [place] [address] Larissa Bal PA [facility] [place] [address] Retention of urine, unspecified Social History Tobacco Use Types Packs/Day Years Used Date Smoking Tobacco: Never Assessed Sex and Gender Information Value Date Recorded Sex Assigned at Not on file Legal Sex Male 9:56 PM EDT Gender Identity Not on file Sexual Orientation Not on file documented as of this encounter Plan of Treatment Not on file documented as of this encounter Results * US Kidneys and Bladder (12/13/2018 9:03 AM EDT) Anatomical Region Laterality Modality Abdomen, Kidney Ultrasound 12/13/2018 4:20 PM EDT Impressions 12/13/2018 4:23 PM EDT No hydronephrosis. Mild fullness of the left renal pelvis resolved following voiding. POS - [id number] Narrative 12/13/2018 4:23 PM EDT EXAM: US KIDNEYS AND BLADDER ULTRASOUND KIDNEYS AND URINARY BLADDER COMPARISON: Abdominal/pelvis CT on November 07, 2018. FINDINGS: RIGHT KIDNEY: The right kidney is within normal limits for size and measures 11.9 cm in sagittal dimension. Parenchyma is within normal limits. Cortical thickness and echogenicity are within normal limits. No hydronephrosis, focal lesions, or shadowing stones. LEFT KIDNEY: The left kidney is within normal limits for size and measures 12.7 cm in sagittal dimension. Parenchyma is within normal limits. Cortical thickness and echogenicity are within normal limits. No hydronephrosis or shadowing stones. Cyst in the lower pole measuring up to 1.0 cm. Note that there was mild fullness of the left renal pelvis that resolved following voiding. BLADDER: No intraluminal filling defect or focal wall thickening. Both ureteral jets are visualized.. Prevoid bladder volume measures 1040l cm3 and post void measures 177 cm3 for a 17 % post void residual bladder volume. Procedure Note Maria Elena Bowne MD - 12/13/2018 EXAM: US KIDNEYS AND BLADDER ULTRASOUND KIDNEYS AND URINARY BLADDER COMPARISON: Abdominal/pelvis CT on November 07, 2018. FINDINGS: RIGHT KIDNEY: The right kidney is within normal limits for size andmeasures 11.9 cm in sagittal dimension. Parenchyma is within normallimits. Cortical thickness and echogenicity are within normal limits. Nohydronephrosis, focal lesions, or shadowing stones. LEFT KIDNEY: The left kidney is within normal limits for size and [id number] cm in sagittal dimension. Parenchyma is within normal limits.Cortical thickness and echogenicity are within normal limits. Nohydronephrosis or shadowing stones. Cyst in the lower pole measuring up to1.0 cm. Note that there was mild fullness of the left renal pelvis thatresolved following voiding. BLADDER: No intraluminal filling defect or focal wall thickening. Bothureteral jets are visualized.. Prevoid bladder volume measures 1040l cm3 and post void measures 177 cm3for a 17 % post void residual bladder volume. IMPRESSION: No hydronephrosis. Mild fullness of the left renal pelvis resolvedfollowing voiding. POS - [id number] Larissa POLANCO IMG US RENAL Final Resul t documented in this encounter Visit Diagnoses Diagnosis Retention of urine, unspecified Retention of urine, unspecified documented in this encounter Care Teams Occupational Therapy Specialist Relationship Specialty Start Date End Date Daniel Shoemaker MD [address] [place] [address] [place] [address] PCP - General Internal Medicine 11/07/18 documented as of this encounter Additional Source Comments The information contained in this document represents components of the legal health record. It is not the complete legal health record.[facility]
--- OUTSIDE RECORDS SUMMARY | 2025-07-18 19:48 | XMS_ITS | Encounter Summary ---
Author Organization [facility] Address [address] [facility] [address] [place] [address] Phone Care Team Providers Care Electro Mechanic Name Role Phone Daniel Shoemaker MD Primary Care Provider Encounter Details Date Type Department Care Team (Late st Contact Info) Description 11/16/2018 Ancillary Orders [facility], Ct Scan - [address] [address] Larissa Bal PA [address] [place] [address] Social History Tobacco Use Types Packs/Day Years Used Date Smoking Tobacco: Never Assessed Sex and Gender Information Value Date Recorded Sex Assigned at Not on file Legal Sex Male 9:56 PM EDT Gender Identity Not on file Sexual Orientation Not on file documented as of this encounter Plan of Treatment Not on file documented as of this encounter Visit Diagnoses Not on filedocumented in this encounter Care Teams Electro Mechanic Relationship Specialty Start Date End Date Daniel Shoemaker MD [address] [place] [address] [place] [address] PCP - General Internal Medicine 11/07/18 documented as of this encounter Additional Source Comments The information contained in this document represents components of the legal health record. It is not the complete legal health record.[facility]
== END 2025-07-18 14:33 | disposition home or self-care (01) ==
LOC: HO.US 14:32
PROVIDERS: PCP Internal Medicine; Visit Provider Internal Medicine
DX: N12 Tubulo-interstitial nephritis, not specified as acute or chronic (principal)
CPT/HCPCS: 76775

== ENCOUNTER → 2025-07-18 14:45 | Outpatient (BNV) | payer MEDICARE, SELFPAY | PROVIDERS: PCP Internal Medicine; Visit Provider Radiology Diagnostic Radiology | DX: N12 Tubulo-interstitial nephritis, not specified as acute or chronic (principal); N28.1 Cyst of kidney, acquired | CPT/HCPCS: 76775 ==